=== PATIENT | male | born 1955 | race Caucasian/White ===

== ENCOUNTER 2023-12-29 05:22 | Emergency (ER) | payer OTHER, SELFPAY ==
[2023-12-29] VITALS (11 sets, daily range): BP systolic 107–141; BP diastolic 70–91; PULSE 58; O2SAT 93; BMI 29.3
[2023-12-29] MEDS: ZOFRAN 4 MG IV (05:59)
[2023-12-29 06:01] LABS: % Basophils 0.5 % (0-2); % Immature Granulocytes 0.4 % (0-0.5); % Lymphocytes 19.1 % (20.5-51.1); % Monocytes 6.8 % (1.7-9.3); % Neutrophils 67.2 % (42.2-75.2); Absolute Eosinophils 0.5 10^3/uL (0-0.7); Absolute Lymphocytes 1.5 10^3/uL (1.2-3.4); Absolute Monocytes 0.5 10^3/uL (0.1-0.6); Absolute Neutrophils 5.2 10^3/uL (1.4-6.5); Hematocrit 43.7 % (39.0-52.0); Hemoglobin 14.7 g/dL (13.0-18.0); Mean Corp Hgb Conc. 33.6 g/dL (33.0-37.0); Mean Corpuscular Hgb 30.7 pg (27.0-31.0); Mean Corpuscular Volume 91.2 fL (80.0-94.0); Nucleated Red Blood Cells % 0 % (-); Platelet Count 186 10^3/uL (130-400); Red Blood Cell Count 4.79 10^6/uL (4.70-6.10); Red Cell Dist. Width 12.8 % (11.5-14.5); White Blood Cell Count 7.7 10^3/uL (4.8-10.8)
[2023-12-29 06:19] LABS: ALT (SGPT) 22 U/L (0-50); AST (SGOT) 26 U/L (17-59); Albumin 4.1 g/dl (3.5-5.0); Alkaline Phosphatase 68 U/L (38-126); Blood Urea Nitrogen 18 mg/dl (9-20); Calcium 8.6 mg/dl (8.4-10.2); Carbon Dioxide 22 mmol/L (22-30); Chloride 109 mmol/L (98-107); Estimated Creatinine Clearance 86 ml/min; Glucose 167 mg/dl (70-99); Lipase 58 U/L (23-300); Potassium 4.3 mmol/L (3.5-5.1); Sodium 137 mmol/L (135-145); Total Bilirubin 0.7 mg/dl (0.2-1.3); Total Protein 6.8 g/dl (6.3-8.2); eGFR > 60.00
--- NOTE | 2023-12-29 06:30 | ED.GENMED ---
History of Present Illness
General
Chief Complaint: Dizziness
Source: patient, spouse and ambulance crew
Exam Limitations: none
Time Seen by Provider: 12/29/23 06:15
Nursing documentation reviewed up to this point in time: agreed with
Travel History
Have you had any contact with someone who has COVID-19?: No
Do you have any symptoms of coronavirus? Fever > 100 degrees, chills, cough, shortness of breath, sore throat, loss of taste or smell, muscle aches, or headache?: No
History of Present Illness
History of Present Illness:
68-year-old male presents to the emergency department due to waking up with dizziness at 3 AM. He states the room was spinning, and he was nauseous and vomiting. EMS gave him 4 mg of Zofran. He was unsteady when walking. He did not fall.
Phy Exam
Physical Exam
Physical Exam:
Physical Exam
General: no apparent distress, not acutely ill
Neck: supple. no meningeal signs. normal posterior pharynx
Heart: s1/s2 regular rate and rhythm, no murmur. equal radial
pulses.
HEENT: Pupils equal round reactive to light, EOMI
Lungs: no acute respiratory distress. clear bilaterally
Abdomen: normal bowel sounds. not tender. no CVAT
Neuro: alert and oriented. no focal neurological deficits cranial nerves II through XII intact
Skin: no rash
Psychiatric: well kept. interactive and cooperative
Extremities: no edema. no calf tenderness. negative homans. good distal pulses
Course
Orders/Labs/Results
Orders:
Orders
12/29/23 05:23
Electrocardiogram (*1) Urgent
Reason for Study: Chest Pain
Cardiac Monitoring- Treatment ONCE
EKG- Treatment ONCE
IV Insert/Care/Rem.- Treatment PRN
O2 Therapy [RESP] Urgent
Titrate/Wean O2 to maintain O2 sat greater than (%): 90
Special Instructions: Maintain sats >/=90%
Pulse Ox/spot Check [RESP] Urgent
Quantity: 1
Special Instructions: ON ROOM AIR
12/29/23 05:52
Complete Blood Count/With Diff Urgent
Comprehensive Metabolic Panel Urgent
Lipase Urgent
12/29/23 05:57
Ondansetron Injectable [Zofran] 4 mg .ROUTE .STK-MED ONE
12/29/23 05:59
Ondansetron Injectable [Zofran] 4 mg IV NOW STA
12/29/23 06:04
CT Head W/o Iv Contrast Urgent
Comment:
Reason For Exam: vertigo
12/29/23 08:21
Physical Therapy Consult [Pt Eval And Treat] Urgent
Treatment: vestibular evaluation
Activity Level: Ambulate
12/29/23 09:50
Meclizine [Antivert] 25 mg PO NOW STA
Abnormal Lab Results
12/29/23
05:52
Lymphocytes % 19.1 L %
(20.5-51.1)
Chloride 109 H mmol/L
(98-107)
Glucose 167 H mg/dl
(70-99)
12/29/23 05:52
12/29/23 05:52
Vital Signs
Initial and Last Documented VS:
Initial Vital Signs
Pulse Ox
97
12/29/23 05:34
Last Documented Vital Signs
Pulse Resp BP Pulse Ox
62 20 108/73 91
12/29/23 11:15 12/29/23 11:15 12/29/23 11:00 12/29/23 11:15
MDM/Problems Addressed
Differential Diagnosis Includes:
Cerebellar CVA, vertigo
MDM/Problems Addressed:
68-year-old male with peripheral vertigo, do not suspect CVA. Stable for discharge.
Chronic conditions affecting care: Cardiomyopathy
Acute Exacerbation and/or Progression of Chronic Illness: Cardiomyopathy
*Radiology
Radiology exam reviewed: radiology read reviewed (CT head no acute findings)
*Pulse Oximetry
Patient hypoxic: no
*EKG
Interpreted by ED Provider?: Yes
EKG Intrepretation Date: 12/29/23
EKG Intrepretation Time: 05:32
Interpretation: abnormal
Comparison EKG: no comparison EKG present
Heart Rate: 55
Rate: bradycardiac
Rhythm: sinus
Elmore: normal axis
Interval: normal interval
QRS Pattern: normal QRS
Ischemia: no ischemia
*Senior Firmware Engineer Interpretation
Rate: bradycardiac
Interpretation: normal
Heart Rate: 57
Rhythm: sinus
*Critical Care Note
Total Time (30-74mins, 75-104mins- exclusive of procedures): Not Applicable
Patient Management
Social determinants of health affecting care: Living situation
Discussion with other providers: Other (physical therapy)
Escalation/DeEscalation of care consider admission/obs:
admit not indicated
ED Attending Note
-
Portions of this chart may have been created with voice recognition software.� Occasional wrong word or��sound alike� substitutions may have occurred due to the inherent limitations of voice recognition software.
Discharge Plan
Departure
Patient Disposition: Home (Routine Discharge)
Date of Disposition: 12/29/23
Time of Disposition: 09:41
Patient with high blood pressure during this ER visit?: No
Condition: Good
Discharge Problem:
Vertigo
Instructions: Vertigo (a Type of Dizziness) (DC)
Prescriptions:
New
meclizine 25 mg tablet
25 mg PO BID PRN (Reason: dizziness) Qty: 7 0RF
Referrals:
Greg Valentino DO [Family Provider] - Call in 1-3 days for appt
Activity Restrictions/Additional Instructions:
Do not take meclizine (antivert) on the day of physical therapy
Interventions
Interventions:
*Risk Screen - Suicide Last Done: 12/29/23 05:24
*General Assessment Last Done: 12/29/23 05:24
*Neglect/Abuse Screening Last Done: 12/29/23 05:24
ED- Fall Risk Assessment Last Done: 12/29/23 05:38
*ED COVID-19 Vaccine History Last Done: 12/29/23 05:24
*Nursing Disposition Last Done: 12/29/23 11:54
ED- Neurological Assessment Last Done: 12/29/23 05:38
ED- Cardiac Assessment Last Done: 12/29/23 05:38
ED Swallowing Screen Last Done: 12/29/23 07:51
Discharge Date and Time
Discharge Date/Time: 12/29/23 12:01
[2023-12-29] MEDS: ANTIVERT 25 MG PO (09:59)
== END 2023-12-29 12:01 | disposition home or self-care (01) ==
LOC: EMR 05:22
PROVIDERS: Student in an Organized Health Care Education/Training Program; EMERGENCY PHYSICIAN Emergency Medicine; FAMILY PHYSICIAN Internal Medicine
DX: R42 Dizziness and giddiness (principal)
CPT/HCPCS: 99284; 96374; 70450; 80053; 83690; 85025; 93005

== ENCOUNTER → 2024-01-08 07:07 | Outpatient (REF) | payer OTHER, SELFPAY | LOC: MRI 3T 07:07 | PROVIDERS: ATTENDING PHYSICIAN Nurse Practitioner Family; FAMILY PHYSICIAN Internal Medicine | DX: R42 Dizziness and giddiness (principal); R26.81 Unsteadiness on feet | CPT/HCPCS: 70551 ==

== ENCOUNTER → 2024-01-10 07:37 | Outpatient (REF) | payer OTHER, SELFPAY | LOC: RCS 07:37 | PROVIDERS: ATTENDING PHYSICIAN Nurse Practitioner Family; FAMILY PHYSICIAN Internal Medicine | DX: I25.10 Atherosclerotic heart disease of native coronary artery without angina pectoris (principal); R42 Dizziness and giddiness; E78.2 Mixed hyperlipidemia; I10 Essential (primary) hypertension; I35.0 Nonrheumatic aortic (valve) stenosis | CPT/HCPCS: 93225; 93226 ==

== ENCOUNTER → 2024-03-15 07:47 | Outpatient (REF) | payer OTHER, SELFPAY | LOC: RAD 07:47 | PROVIDERS: ATTENDING PHYSICIAN Nurse Practitioner Family; FAMILY PHYSICIAN Internal Medicine | DX: I25.10 Atherosclerotic heart disease of native coronary artery without angina pectoris (principal); I10 Essential (primary) hypertension; R42 Dizziness and giddiness; R09.89 Other specified symptoms and signs involving the circulatory and respiratory systems; I35.0 Nonrheumatic aortic (valve) stenosis; E78.2 Mixed hyperlipidemia | CPT/HCPCS: 93880 ==

== ENCOUNTER → 2024-04-12 06:46 | Outpatient (REF) | payer OTHER, SELFPAY | LOC: PAVMRI 06:46 | PROVIDERS: ATTENDING PHYSICIAN Specialist; FAMILY PHYSICIAN Internal Medicine | DX: G45.9 Transient cerebral ischemic attack, unspecified (principal) | CPT/HCPCS: 70544; 70547 ==

== ENCOUNTER → 2024-09-21 14:19 | Outpatient (REF) | payer OTHER, SELFPAY | LOC: RAD 14:19 | PROVIDERS: ATTENDING PHYSICIAN Nurse Practitioner Family; FAMILY PHYSICIAN Internal Medicine | DX: I50.20 Unspecified systolic (congestive) heart failure (principal); I48.19 Other persistent atrial fibrillation; R09.89 Other specified symptoms and signs involving the circulatory and respiratory systems; I35.0 Nonrheumatic aortic (valve) stenosis; R06.02 Shortness of breath | CPT/HCPCS: 71046 ==

== ENCOUNTER 2024-10-12 06:43 | Day surgery (SDC) | payer OTHER, SELFPAY ==
[2024-10-12] VITALS (12 sets, daily range): BP systolic 91–132; BP diastolic 58–101; BMI 28.6
--- NOTE | 2024-10-12 09:47 | ITS.CL.PN ---
Addendum entered and electronically signed by Lester Smith MD 10/12/24 12:30:
Mean gradient assessed by simultaneous pressure recording ([place] catheter): 25.4 mmHg with calculated WICHO 0.59 (SVI 17.8 mL).
Original Note:
Marketing Technologist - Procedure Note
Procedure
Procedure Note:
CARDIAC CATHETERIZATION REPORT
Date of Procedure: 10/12/24
Referring: Dr. Greg Valentino, DO
Indication: coronary artery disease, severe aortic stenosis, HFrEF
PROCEDURE(S)
1. right heart catheterization
2. left heart catheterization
3. coronary angiography
ACCESS
1. 6F left radial artery (closure: radial band)
2. 5F right antecubital vein (closure: manual hemostasis)
CATHETERS
1. 5F [place]
2. 6F JR4
3. 6F JL4
4. 6F AL1
5. 6F [place] pigtail
HEMODYNAMIC DATA
LV 120/18 (EDP 26) mmHg
AO 102/75 (mean 88) mmHg
RA 18 mmHg
RV 60/8 (EDP 23) mmHg
PA 57/38 (mean 43) mmHg
PCWP 31 mmHg
SaO2 96.0%
SvO2 45.9%
Hb 13.5 g/dL
CO/CI 2.92/1.46 L/min/m2
SVR 1917 dsc*-5
PVR 4.1 Wood units
CORONARY ANGIOGRAPHY
Dominance: right
LM: large with mild disease
LAD: large vessel giving rise a moderate caliber D1, large branching D2, and multiple septal perforators. There is a focal 50% stenosis in the proximal aspect of D1. The D2 has eccentric, focal, moderate-severe stenoses proximal to the bifurcation
as well as in the proximal aspects of both limbs. The LAD proper has mild calcific disease proximally, a 50% stenosis just after D2, and a 40% stenosis in the mid-distal vessel.
LCx: Large vessel giving rise to three small-moderate caliber OM branches. There is a 90% stenosis in the proximal vessel. OM 2 is subtotaled proximally. OM3 provides collaterals to the distal RCA.
RCA: Severely diseased through the proximal to mid section with a total occlusion distally. The large RPDA and a large RPL branch are supplied by [id number] collaterals.
RADIATION: dose 576 mGy; DAP 43 Gy*cm2; fluoroscopy time 11.5 min
CONCLUSIONS
1. severely elevated biventricular filling pressures, severe pre and postcapillary pulmonary hypertension, and severely reduced cardiac output and index
2. severe three-vessel coronary artery disease in a right dominant system as described
3. severe low-flow low gradient aortic stenosis
RECOMMENDATIONS
1. expectant management after cardiac catheterization via right radial artery and right brachial vein approach
2. increase Lasix to 40 twice daily
3. close follow-up for titration of GDMT for HFrEF. Will need to closely follow renal function.
4. eventual consideration for rhythm control strategy for A-fib given HFrEF
5. aggressive secondary prevention of CAD with a goal LDL less than 55
6. will proceed with TAVR/SAVR evaluation, with plan for TAVR CT in [address] Surgery consult. Given the presence of multivessel coronary artery disease of high complexity and ICM, patient may stand to benefit most from surgical AVR
plus CABG with concomitant left atrial appendage occlusion and maze procedure.
Copy to: Dr. Greg Valentino DO (PCP)
Signed: Lester Smith MD, PhD
[2024-10-12] MEDS: LASIX 40 MG IV (10:10)
[2024-10-12 11:03] LABS: Blood Urea Nitrogen 26 mg/dl (9-20); Calcium 8.5 mg/dl (8.4-10.2); Carbon Dioxide 19 mmol/L (22-30); Chloride 102 mmol/L (98-107); Estimated Creatinine Clearance 66 ml/min; Glucose 91 mg/dl (70-99); Magnesium 2.2 mg/dl (1.6-2.3); Potassium 4.4 mmol/L (3.5-5.1); Sodium 132 mmol/L (135-145); eGFR > 60.00
--- NOTE | 2024-10-12 11:53 | CONSULT.STRU ---
Consultation
-
Date/Time Consultation Requested: 10/12/2024
Date/Time Consultation Performed: 10/12/2024
Requesting Provider: Lester Smith MD
Performing Provider: MULUGETA Nails
Reason for Consultation: CAD/Aortic Stenosis/Afib
Patient History
Physicians
Family Physician: Greg Valentino
Outpatient Distributor Publications: Lester Smith
Primary Distributor Publications: Lester Smith
History of Present Illness
Mr. Gillespie is a pleasant 69-year-old man with past medical history of coronary artery disease, paroxysmal atrial fibrillation status post 2 failed cardioversions, heart failure with reduced ejection fraction, severe aortic stenosis, hyperlipidemia,
hypertension, and cerebellar stroke. He presents today for cardiac catheterization. He previously followed at [facility] for his cardiovascular care but now would like to establish care at [place]. He was recently admitted to [facility] from
08/28-08/31/24 for multilobar pneumonia and decompensated heart failure. He had a second cardioversion during that admission which failed despite amiodarone. He continues to take amiodarone and eliquis. Recent echocardiogram demonstrated EF in the
30 to 40% range, with severe aortic stenosis. Plan is to repeat echo here today. Since discharge from the hospital he has gained weight (he had lost 20 pounds while hospitalized). He has had stable dyspnea on exertion, no chest pain, no orthopnea,
lower extremity edema, or lightheadedness. He is restricting his fluid intake to 48 ounces daily per instructions. He is taking furosemide 40 mg daily plus a second dose which was previously intended to be as needed but he is now taking standing.
Discussed with Mr. Gillespie the options for treatment of AVR/CABG/Maze and Clip vs TAVR/PCI. Explained the shared decision making approach that would be utilized in deciding his plan of care. Allowed for and answered questions.
Past Medical History
Past Medical History: Atrial Fib (on Eliquis, failed cardioversions), CAD, CVA/TIA, HTN, Hypercholesterolemia, Valvular Disease (Severe , moderate AI, Mild MR) and Other (glaucoma, arthritis, recent pneumonia (08/2024))
Past Surgical History
Past Surgical History: Orthopedic (R-TKR(11/01), L-TKR(07/01), bilateral arthroscopic knee surgery) and Other (Cataract surgery, cardioversions, thoracentesis)
Family History
Mother: at Age
Father: at Age
Social History
Alcohol: Occasional (2 drinks- 3x/week)
Drug: None
Tobacco: Smoker (cigars)
Personal:
Living: With Spouse
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
Allergies
Allergy/AdvReac Type Severity Reaction Status Date / Time
Penicillins Allergy Unknown Verified 10/12/24 07:10
Home Medications
�Medication �Instructions �Recorded �Confirmed �Type
amiodarone 200 mg tablet 200 mg PO DAILY 10/12/24 10/12/24 History
apixaban 5 mg tablet (Eliquis) 5 mg PO BID 10/12/24 10/12/24 History
aspirin 81 mg tablet,delayed 81 mg PO DAILY 10/12/24 10/12/24 History
release
atorvastatin 40 mg tablet 40 mg PO QPM 10/12/24 10/12/24 History
dorzolamide 2 % eye drops 1 drp ophthalmic (eye) BID 10/12/24 10/12/24 History
furosemide 40 mg tablet 40 mg PO BID #0 tabs 10/12/24 10/12/24 Rx
metoprolol succinate 25 mg 12.5 mg PO BID 10/12/24 10/12/24 History
tablet,extended release 24 hr
valsartan 40 mg tablet 40 mg PO BID 10/12/24 10/12/24 History
Review of Systems
-
History Source: Patient
General: Reports No Symptoms
HEENT: Reports No Symptoms
Respiratory: Reports LISA and Cough (since hospital ized with pneumonia in August)
Cardiac: Reports No Symptoms; Denies Chest Pain, Palpitations or Edema
Abdomen/GI: Reports No Symptoms; Denies Abdominal Pain, Reflux, Nausea, Vomiting or Diarrhea
: Reports No Symptoms; Denies Dysuria or Hematuria
Musculoskeletal: Reports No Symptoms
Skin: Reports No Symptoms
Neurological: Reports No Symptoms
Vascular: Reports No Symptoms; Denies Claudication
Physical Exam
Vital Signs
Temp 98.2 F 10/12/24 07:00
Temp route: Oral 10/12/24 07:00
Pulse 99 10/12/24 11:30
Resp Rate 31 10/12/24 11:30
Blood pressure 98/77 10/12/24 11:21
Blood pressure extremity used: Right upper arm 10/12/24 07:00
Position: Lying 10/12/24 07:00
MAP (cuff-Magdiel Monitor) 82 10/12/24 11:21
SaO2 96 10/12/24 11:30
Oxygen Mode of Delivery Room air 10/12/24 07:00
Can the patient verbally communicate their pain? Yes 10/12/24 11:35
Actual Weight 85.4 kg 10/12/24 07:03
Body Mass Index (BMI) 28.6 10/12/24 07:03
Labs
10/12/24 10:01
Diagnostic Studies
10/12/2024 Cardiac Cath:
Mean gradient assessed by simultaneous pressure recording ([place] catheter): 25.4 mmHg with calculated WICHO 0.59 (SVI 17.8 mL).
Addendum Dictated by: Lester Smith MD
Addendum Dictated Date & Time: 10/12/24 1230
Addendum Signed by: Lester Smith MD
Addendum Signed Date & Time: 10/12/24 1230
Damper Worker - Procedure Note
Procedure
Procedure Note:
CARDIAC CATHETERIZATION REPORT
Date of Procedure: 1/2/25
Referring: Dr. Greg Valentino, DO
Indication: coronary artery disease, severe aortic stenosis, HFrEF
PROCEDURE(S)
1. right heart catheterization
2. left heart catheterization
3. coronary angiography
ACCESS
1. 6F left radial artery (closure: radial band)
2. 5F right antecubital vein (closure: manual hemostasis)
CATHETERS
1. 5F [place]
2. 6F JR4
3. 6F JL4
4. 6F AL1
5. 6F [place] pigtail
HEMODYNAMIC DATA
LV 120/18 (EDP 26) mmHg
AO 102/75 (mean 88) mmHg
RA 18 mmHg
RV 60/8 (EDP 23) mmHg
PA 57/38 (mean 43) mmHg
PCWP 31 mmHg
SaO2 96.0%
SvO2 45.9%
Hb 13.5 g/dL
CO/CI 2.92/1.46 L/min/m2
SVR 1917 dsc*-5
PVR 4.1 Wood units
CORONARY ANGIOGRAPHY
Dominance: right
LM: large with mild disease
LAD: large vessel giving rise a moderate caliber D1, large branching D2, and multiple septal perforators. There is a focal 50% stenosis in the proximal aspect of D1. The D2 has eccentric, focal, moderate-severe stenoses proximal to the bifurcation
as well as in the proximal aspects of both limbs. The LAD proper has mild calcific disease proximally, a 50% stenosis just after D2, and a 40% stenosis in the mid-distal vessel.
LCx: Large vessel giving rise to three small-moderate caliber OM branches. There is a 90% stenosis in the proximal vessel. OM 2 is subtotaled proximally. OM3 provides collaterals to the distal RCA.
RCA: Severely diseased through the proximal to mid section with a total occlusion distally. The large RPDA and a large RPL branch are supplied by [id number] collaterals.
RADIATION: dose 576 mGy; DAP 43 Gy*cm2; fluoroscopy time 11.5 min
CONCLUSIONS
1. severely elevated biventricular filling pressures, severe pre and postcapillary pulmonary hypertension, and severely reduced cardiac output and index
2. severe three-vessel coronary artery disease in a right dominant system as described
3. severe low-flow low gradient aortic stenosis
RECOMMENDATIONS
1. expectant management after cardiac catheterization via right radial artery and right brachial vein approach
2. increase Lasix to 40 twice daily
3. close follow-up for titration of GDMT for HFrEF. Will need to closely follow renal function.
4. eventual consideration for rhythm control strategy for A-fib given HFrEF
5. aggressive secondary prevention of CAD with a goal LDL less than 55
6. will proceed with TAVR/SAVR evaluation, with plan for TAVR CT in [address] Surgery consult. Given the presence of multivessel coronary artery disease of high complexity and ICM, patient may stand to benefit most from surgical AVR
plus CABG with concomitant left atrial appendage occlusion and maze procedure.
Exam
General: Well Developed, Well Nourished, No Apparent Distress and Comfortable
HEENT: Normocephalic, Moist Mucous Membranes, PERRLA and EOMI
Neck: Trachea Midline
Respiratory: Crackles (left base); Negative Wheezes, Rhonchi or Accessory Muscle Use
Cardiac: S1/S2, Irregular Rhythm and Murmur (Grade II/ systolic murmur)
GI: Soft, Non Tender, Non Distended and Normal Bowel Sounds
Rectal: Deferred by Provider
Skin: Warm and Dry
Neuro: AO x 3, No Motor Deficits and Nonfocal/Grossly Intact
Extremities: Negative Lower Level Edema
Psych: Calm
Assessment / Plan
-
Procedure Type:�Isolated AVR
PERIOPERATIVE OUTCOME ESTIMATE %
Operative Mortality 1.06%
Morbidity & Mortality 12.8%
Stroke 1.41%
Renal Failure 1.38%
Reoperation 3.7%
Prolonged Ventilation 7.29%
Deep Sternal Wound Infection 0.112%
Long Hospital Stay (>14 days) 2.39%
Short Hospital Stay (<6 days)* 41.1%
Procedure Type:�CABG + AVR
PERIOPERATIVE OUTCOME ESTIMATE %
Operative Mortality 2.65%
Morbidity & Mortality 15%
Stroke 1.16%
Renal Failure 1.75%
Reoperation 5.42%
Prolonged Ventilation 14.2%
Deep Sternal Wound Infection 0.204%
Long Hospital Stay (>14 days) 7.8%
Short Hospital Stay (<6 days)* 26.5%
Assessment:
Severe aortic stenosis with reduced EF, multi vessel CAD and atrial fibrillation.
Plan:
Will proceed with TAVR/SAVR evaluation, with plan for TAVR CT in [address] Surgery consult with Dr. Coon. Given the presence of multivessel coronary artery disease of high complexity and ICM, patient may stand to benefit most from
surgical AVR plus CABG with concomitant left atrial appendage occlusion and maze procedure. Will complete TAVR CT scan and discussion with the Heart Team at the shared decision making meeting.
BMP: 10/19/2024 ([facility])
CT TAVR: 10/24/2024
CT surgery Consult with Dr. Coon: 10/30/2024
Will need dental clearance.
Data Reviewed
-
EKG: Report Reviewed by me
Damper Worker: Discussed with Physician
Echo: Report Reviewed by me and Discussed with Physician
Labs: Labs Reviewed by me and Discussed with Physician
Old Records: Reviewed (cardiology consult, echo report from [place])
Total Time Spent with Patient (in minutes): 25
--- NOTE | 2024-10-12 14:16 | PTCARENOTE ---
Echo complete. Patient ok for discharge
== END 2024-10-12 14:31 | disposition home or self-care (01) ==
LOC: CATH 06:43
PROVIDERS: Nurse Practitioner Adult Health; ATTENDING PHYSICIAN Student in an Organized Health Care Education/Training Program; FAMILY PHYSICIAN Internal Medicine
DX: I50.22 Chronic systolic (congestive) heart failure (principal); I25.10 Atherosclerotic heart disease of native coronary artery without angina pectoris; I35.0 Nonrheumatic aortic (valve) stenosis; I48.0 Paroxysmal atrial fibrillation; I11.0 Hypertensive heart disease with heart failure; Z86.73 Personal history of transient ischemic attack (TIA), and cerebral infarction without residual deficits; Z79.01 Long term (current) use of anticoagulants; Z87.01 Personal history of pneumonia (recurrent); F17.290 Nicotine dependence, other tobacco product, uncomplicated; Z79.82 Long term (current) use of aspirin; Z79.899 Other long term (current) drug therapy; E78.00 Pure hypercholesterolemia, unspecified; I27.29 Other secondary pulmonary hypertension; Z88.0 Allergy status to penicillin; Z95.1 Presence of aortocoronary bypass graft
CPT/HCPCS: 80048; 83735; 93306; 93460; C1769; C1894; Q9967

== ENCOUNTER → 2024-10-24 09:05 | Outpatient (REF) | payer OTHER, SELFPAY | LOC: RAD 09:05 | PROVIDERS: ATTENDING PHYSICIAN Nurse Practitioner Adult Health; FAMILY PHYSICIAN Internal Medicine | DX: I35.0 Nonrheumatic aortic (valve) stenosis (principal) | CPT/HCPCS: 74174; 75572; Q9967 ==

== ENCOUNTER → 2024-11-15 10:25 | Outpatient (REF) | payer OTHER, SELFPAY ==
[2024-11-15 10:45] VITALS: BP 92/58; BP_SYST 72
[2024-11-15 11:05] VITALS: BP 83/68; BP_SYST 98
--- NOTE | 2024-11-15 11:56 | PTCARENOTE ---
Addendum entered by Karon Palmer RN 11/15/24 12:44:
patient seen by Beatriz Dean. ok to discharge patient per Beatriz. discharged home.
Original Note:
IRAD note: Patient Osorio Gillespie came for Thoracentesis. we removed 1000ml from right side. He is schedule for TAVR next . Before Thoracentesis his BP was 92/58. Post Thora BP 80-82/70's. patient is Asymptomatic. He took Metoprolol 12.5mg
today AM and not sure about valsartan 40mg. rechecked BP multiple times on both arms. Cardiac RUG HOOKER Tamika Drake notified. Waiting for Beatriz Dean to see patient before discharge.
[2024-11-15 12:42] VITALS: BP 88/72
== END ==
LOC: RADI 10:25
PROVIDERS: ATTENDING PHYSICIAN Nurse Practitioner Acute Care
DX: J90 Pleural effusion, not elsewhere classified (principal)
CPT/HCPCS: 32555; 71045

== ENCOUNTER → 2024-11-16 09:49 | Outpatient (REF) | payer OTHER, SELFPAY ==
[2024-11-16 10:22] LABS: INR 1.94; PT 22.7 Sec (11.4-14.6)
[2024-11-16 10:23] LABS: APTT 43.1 Sec (23.4-35.0)
[2024-11-16 10:28] LABS: ALT (SGPT) 132 U/L (0-50); AST (SGOT) 100 U/L (17-59); Albumin 3.2 g/dl (3.5-5.0); Alkaline Phosphatase 199 U/L (38-126); Blood Urea Nitrogen 46 mg/dl (9-20); Calcium 8.4 mg/dl (8.4-10.2); Carbon Dioxide 24 mmol/L (22-30); Chloride 98 mmol/L (98-107); Direct Bilirubin 0.4 mg/dl (0.0-0.4); Glucose 110 mg/dl (70-99); Potassium 4.6 mmol/L (3.5-5.1); Sodium 130 mmol/L (135-145); Total Bilirubin 1.6 mg/dl (0.2-1.3); Total Protein 6.3 g/dl (6.3-8.2); eGFR 42.57
== END ==
LOC: REG 09:49
PROVIDERS: ATTENDING PHYSICIAN Nurse Practitioner Adult Health
DX: I35.0 Nonrheumatic aortic (valve) stenosis (principal); I50.43 Acute on chronic combined systolic (congestive) and diastolic (congestive) heart failure
CPT/HCPCS: 36415; 80053; 82248; 85610; 85730

== ENCOUNTER 2024-11-23 07:43 | Inpatient (IN) | payer OTHER, SELFPAY ==
[2024-11-15 08:03] VITALS: BMI 27.7
[2024-11-15 09:04] LABS: % Basophils 0.5 % (0-2); % Eosinophils 1.5 % (0-6); % Immature Granulocytes 0.3 % (0-0.5); % Lymphocytes 17.9 % (20.5-51.1); % Neutrophils 67.8 % (42.2-75.2); Absolute Eosinophils 0.1 10^3/uL (0-0.7); Absolute Monocytes 0.7 10^3/uL (0.1-0.6); Absolute Neutrophils 3.9 10^3/uL (1.4-6.5); Hematocrit 45.7 % (39.0-52.0); Hemoglobin 14.8 g/dL (13.0-18.0); Mean Corp Hgb Conc. 32.4 g/dL (33.0-37.0); Mean Corpuscular Hgb 27.6 pg (27.0-31.0); Mean Corpuscular Volume 85.1 fL (80.0-94.0); Mean Platelet Volume 10.5 fL (7.4-10.4); Nucleated Red Blood Cells % 0 % (-); Platelet Count 182 10^3/uL (130-400); Red Blood Cell Count 5.37 10^6/uL (4.70-6.10); Red Cell Dist. Width 16.3 % (11.5-14.5); White Blood Cell Count 5.8 10^3/uL (4.8-10.8)
[2024-11-15 09:07] LABS: Urine Albumin 2+ (Neg - Trace); Urine Bilirubin Negative (Negative); Urine Character Clear (Clear); Urine Color Yellow; Urine Glucose 4+ (Negative); Urine Ketone Negative (Negative); Urine Leukocyte Negative (Negative); Urine Nitrite Negative (Negative); Urine Occult Blood Negative (Negative); Urine Specific Gravity 1.025 (<1.030); Urine Urobilinogen 1+ (Neg - 1+)
[2024-11-15 09:15] LABS: INR 2.71; PT 29.1 Sec (11.4-14.6)
[2024-11-15 09:16] LABS: APTT 43.7 Sec (23.4-35.0)
[2024-11-15 09:24] LABS: Urine Mucus Moderate; Urine Squamous Cell 0-2 /LPF (Few)
[2024-11-15 09:25] LABS: Urine Bacteria Few (Negative); Urine Red Blood Cell 0-2 /HPF (0-2); Urine White Cell 0-2 /HPF (0-5)
[2024-11-15 09:27] LABS: NT-proBNP 24900 pg/ml
[2024-11-15 09:29] LABS: ALT (SGPT) 129 U/L (0-50); AST (SGOT) 111 U/L (17-59); Albumin 4.1 g/dl (3.5-5.0); Alkaline Phosphatase 200 U/L (38-126); Blood Urea Nitrogen 42 mg/dl (9-20); Calcium 8.6 mg/dl (8.4-10.2); Carbon Dioxide 21 mmol/L (22-30); Chloride 96 mmol/L (98-107); Direct Bilirubin 0.7 mg/dl (0.0-0.4); Estimated Creatinine Clearance 36 ml/min; Glucose 97 mg/dl (70-99); Potassium 5.4 mmol/L (3.5-5.1); Sodium 133 mmol/L (135-145); Total Bilirubin 1.7 mg/dl (0.2-1.3); Total Protein 7.4 g/dl (6.3-8.2); eGFR 39.75
[2024-11-15 09:40] LABS: Glycohemoglobin (HgbA1c) 6.1 % (4.0-5.6)
--- NOTE | 2024-11-15 10:10 | CM ---
CM following for DC planning needs.
Met w/ patient, spouse Hafsa during PATs for planned TAVR, 11/23.
Pt. resides w/ spouse in a private, 2 story home w/ 1 LAZARUS. Functionally, patient is indep. with ADLs, mobility without the use of any assisted device. Pt. has some DME from prior knee surgeries but does not use.
Pt. has RX plan and uses [facility] on [address] for prescription needs.
Reviewed pre and post op routines.
Soap, shower instruction and TAVR booklet provided and reviewed.
Discussed post op restrictions to include lifting, driving restrictions.
Discussed post op MD appointments, Cardiac Rehab and visit from CT Transitional Care RN.
Plan for TAVR, 11/23.
Anticipated DC plan is for home with CT Transitional Care RN.
CM to follow.
[2024-11-23] VITALS (26 sets, daily range): BP systolic 72–167; BP diastolic 57–146; BMI 28.3; BMI 27.5
[2024-11-23 07:51] LABS: Glucose - Point of Care 76 mg/dl (70-99)
--- NOTE | 2024-11-23 08:04 | CON.NEURO ---
Neuro Assessment/Plan
Assessment
EEG gen slow, consistent with mild generalized cerebral dysfunction
Head CT imgs rev'd, no bleed
Seen during stroke alert though history is more consistent with seizure.
patient back to baseline so he was not a TNK candidate
possibly a provoked seizure
with a normal EEG his risk for further seizures ~20%
Plan
no rx
check brain MRI r/o brain tumor - can wait until after ECHO, RHC, swan, TAVR, etc
Consultation
Order
Date of Consultation: 11/23/24
Requesting Provider: Jorje Coon
Reason for Consult: Stroke alert
Subjective/Objective
Subjective Data
Date of Service: November 23, 2024
He is a 69 year old man admitted for TAVR. while prepping for the procedure, the patient appeared to be grunting, heavy breathing, head turned unnaturally to the left, left gaze deviation, arms wrists and toes flexed. lasted 45 seconds. came out of
it quickly and the patient was immediately oriented, knew that he was here for a TAVR
Objective Data
PT 29.1 Sec (11.4-14.6) H 11/15/24 08:37
INR 2.71 11/15/24 08:37
APTT 43.7 Sec (23.4-35.0) H 11/15/24 08:37
Sodium 133 mmol/L (135-145) L 11/15/24 08:37
Potassium 5.4 mmol/L (3.5-5.1) H 11/15/24 08:37
BUN 42 mg/dl (9-20) H 11/15/24 08:37
Glucose 97 mg/dl (70-99) 11/15/24 08:37
Calcium 8.6 mg/dl (8.4-10.2) 11/15/24 08:37
Twk-F-Vqszgucoiwv Pept 13906 pg/ml 11/15/24 08:37
Patient Allergies
Penicillins Allergy (Verified 11/15/24 11:08)
Unknown- TOLD YOUNG CHILD
Physical Exam
-
AAOx3, speech clear, language intact
VFF, EOMI, face symmetric
full strength b/l UE/LE
sensation intact to touch
Medications
-
Home Medications
�Medication �Instructions �Recorded
amiodarone 200 mg tablet 200 mg PO DAILY 10/12/24
apixaban 5 mg tablet (Eliquis) 5 mg PO BID 10/12/24
aspirin 81 mg tablet,delayed 81 mg PO DAILY 10/12/24
release
atorvastatin 40 mg tablet 40 mg PO QPM 10/12/24
furosemide 40 mg tablet 40 mg PO BID #0 tabs 10/12/24
metoprolol succinate 25 mg 12.5 mg PO BID 10/12/24
tablet,extended release 24 hr
valsartan 40 mg tablet 40 mg PO DAILY 10/12/24
dapagliflozin propanediol 10 mg 10 mg PO DAILY 11/13/24
tablet (Farxiga)
potassium chloride 20 mEq oral 20 meq PO DAILY 11/13/24
packet
dorzolamide 22.3 mg-timolol 6.8 1 drp BOTH EYES BID 11/14/24
mg/mL eye drops
[2024-11-23 08:05] LABS: Hematocrit 46.1 % (39.0-52.0); Hemoglobin 14.8 g/dL (13.0-18.0); Mean Corp Hgb Conc. 32.1 g/dL (33.0-37.0); Mean Corpuscular Hgb 26.6 pg (27.0-31.0); Mean Corpuscular Volume 82.9 fL (80.0-94.0); Mean Platelet Volume 10.2 fL (7.4-10.4); Platelet Count 183 10^3/uL (130-400); Red Blood Cell Count 5.56 10^6/uL (4.70-6.10); Red Cell Dist. Width 16.9 % (11.5-14.5); White Blood Cell Count 6.3 10^3/uL (4.8-10.8)
[2024-11-23 08:14] LABS: APTT 36.5 Sec (23.4-35.0); INR 1.83; PT 21.7 Sec (11.4-14.6)
[2024-11-23 08:16] LABS: Blood Urea Nitrogen 58 mg/dl (9-20); Calcium 8.4 mg/dl (8.4-10.2); Carbon Dioxide 18 mmol/L (22-30); Chloride 96 mmol/L (98-107); Estimated Creatinine Clearance 33 ml/min; Glucose 65 mg/dl (70-99); Potassium 5.2 mmol/L (3.5-5.1); Sodium 127 mmol/L (135-145); eGFR 35.02
[2024-11-23 08:35] LABS: B.E. -9.4 mmol/L; O2 Saturation % 99.9 % (94-98); PCO2 21 mmHg (35-48); PO2 284 mmHg (83-108)
[2024-11-23 08:40] LABS: ALT (SGPT) 344 U/L (0-50); AST (SGOT) 366 U/L (17-59); Albumin 3.4 g/dl (3.5-5.0); Alkaline Phosphatase 287 U/L (38-126); Total Bilirubin 2.3 mg/dl (0.2-1.3); Total Protein 6.4 g/dl (6.3-8.2)
[2024-11-23 08:41] LABS: Glucose - Point of Care 105 mg/dl (70-99)
--- NOTE | 2024-11-23 09:14 | RR ---
Pt arrived at 0725 to labeler recovery area, AA0x3. Pt ambulated from wheelchair to stretcher and changed into gown. While RN wiping patient with HCG wipes pt breathing heavy and grunting, unresponsive looking over to left side with arms with
decorticate posturing. Stroke alert and rapid response called.
A Rapid Response was called on this patient, please see Rapid Response form.
[2024-11-23] MEDS: HEPARIN 4000 UNITS IV (09:30)
[2024-11-23] MEDS: HEPARIN 25000 UNITS/250 ML IV (09:35)
[2024-11-23] MEDS: DOBUTREX 500 MG 250 IV (09:40)
[2024-11-23] MEDS: DEXTROSE 50% SYRINGE 12.5 GRAMS IV (09:40)
--- NOTE | 2024-11-23 10:17 | PTCARENOTE ---
Received pt from microbiological lab technician area post rapid response; pt AAOx3 and resting comfortably in bed; A-fib on monitor and VSS; PIV x2 patent; Heparin bolus/drip and Dobutamine started per MD order see flow sheet for details; Lungs diminished; hypoactive
bowel sounds; pt voiding yellow urine; lower extremities +2 edema and cool/red skin; lower extremity pulses present by Doppler; EEG at bedside and ECHO at bedside; family updated on plan of care; awaiting microbiological lab technician for possible [place] catheter
placement; see nursing documentation for further details.
[2024-11-23 10:18] LABS: Lactic Acid 2.2 mmol/L (0.7-2.0)
--- NOTE | 2024-11-23 10:31 | CM ---
CM following for DC planning needs. Pt. was for TAVR today. While being prepped, stroke alert was called.
Met w/ patient and spouse at bedside. Pt. was receiving ECHO. Support provided.
Pt. resides w/ spouse in a private, 2 story home w/ 1 LAZARUS. Functionally, at baseline, patient is indep. w/ ADLs, mobility without the use of any assisted device.
CM to follow for DC planning needs.
--- NOTE | 2024-11-23 10:46 | EEG.RPT ---
Electroencephalogram Report
Recording
Date of EE11/23/24
Type of EEG: Routine
Length of EEG recordin mins
Done with Video Recording: Yes
Patient Status: Inpatient
Recording Conditions: Awake and Drowsy
Hyperventilation Performed: No
Photic Stimulation Performed: Yes
Report
History: 69 year old man admitted for TAVR, was getting prepped, had seizure ~45 seconds Left head turn, left gaze, limbs flexed
Background: continuous generalized polymorphic theta, 6-7 Hz, symmetric and reactive
Sleep: none
Focal/rhythmic/epileptiform: none
Seizures: none
Photic stim: no background change
Impression: continuous generalized slowing
Clinical correlation: mild generalized cerebral dysfunction
--- NOTE | 2024-11-23 10:52 | HPS.HSE ---
Family Physician
-
Family Physician: Greg Valentino
Chief Complaint
-
Unresponsive, suspected seizure
History of Present Illness
69 y/o male with past medical history severe aortic stenosis, atrial fibrillation, coronary artery disease, heart failure with reduced ejection fraction, glaucoma, cerebellar stroke, hypertension, hyperlipidemia, history of pneumonia and
osteoarthritis presented for a TAVR but pre-op he was noted to be unresponsive with a left gaze and urinary incontinence. CT Head was negative and neurology was consulted. With his low blood pressures with suspected cardiogenic shock, cardiology
started him on vasopressors and pre-op Heparin Drip (in lieu of home Eliquis). Cardiothoracic surgery has now postponed TAVR and asked for patient to be admitted to hospitalist service.
Medical History
Past Medical History
Past Medical History: Reports Other (As per HPI above)
Past Surgical History: Reports Cardiac (Cardiac Cath. Cardioversions.) and Orthopedic (Bilateral total knee replacement)
Additional Past Surgical History:
Bilateral eye cataract surgery
Social History
Tobacco: Smoker
Alcohol: Occasional
Drug: None
Family History
Family History: Not pertinent
Allergies / Home Medications
Allergies reflects when Allergies were last updated in [employer].
Home Medications with original date entered in [employer]
Allergy/Medication List:
Allergies
Allergy/AdvReac Type Severity Reaction Status Date / Time
Penicillins Allergy Unknown- Verified 11/15/24 11:08
TOLD
YOUNG CHILD
Home Medications
amiodarone 200 mg tablet 200 mg PO DAILY 10/12/24
apixaban 5 mg tablet (Eliquis) 5 mg PO BID 10/12/24
aspirin 81 mg tablet,delayed release 81 mg PO DAILY 10/12/24
atorvastatin 40 mg tablet 40 mg PO QPM 10/12/24
furosemide 40 mg tablet 40 mg PO BID #0 tabs 10/12/24
metoprolol succinate 25 mg tablet,extended release 24 hr 12.5 mg PO BID 10/12/24
valsartan 40 mg tablet 40 mg PO DAILY 10/12/24
dapagliflozin propanediol 10 mg tablet (Willemga) 10 mg PO DAILY 11/13/24
potassium chloride 20 mEq oral packet 20 meq PO DAILY 11/13/24
dorzolamide 22.3 mg-timolol 6.8 mg/mL eye drops 1 drp BOTH EYES BID 11/14/24
Review of Systems
-
A 12 point ROS was completed and negative except as noted: Yes
Physical Exam
Vital Signs
Vital Signs
Pulse Resp BP Pulse Ox
97 11 79/69 97
11/23/24 09:45 11/23/24 09:45 11/23/24 09:33 11/23/24 10:26
Physical Exam
General: No Apparent Distress, Comfortable and Conversant
HEENT: Moist mucous membranes
Respiratory: Clear
Cardiac: S1/S2 and Regular Rhythm
GI: Soft, Non Tender and Normal Bowel Sounds
Musculoskeletal: No Cyanosis
Skin: Warm and Dry
Neuro: Awake, Alert, AO x 3, No Motor Deficits, Nonfocal/grossly intact and Cranial Nerves Intact
Psych: Calm and Intact Judgment/Insight
Laboratory Results
-
11/23/24 07:51
11/23/24 07:50
Laboratory Results
PT 21.7 Sec (11.4-14.6) H 11/23/24 07:50
INR 1.83 11/23/24 07:50
APTT 36.5 Sec (23.4-35.0) H 11/23/24 07:50
pH 7.40 (7.35-7.45) 11/23/24 08:25
pCO2 21 mmHg (35-48) L 11/23/24 08:25
pO2 284 mmHg (83-108) H 11/23/24 08:25
HCO3 13.0 mmol/L (21-28) L* 11/23/24 08:25
Lactic Acid 2.2 mmol/L (0.7-2.0) H 11/23/24 09:43
Total Bilirubin 2.3 mg/dl (0.2-1.3) H 11/23/24 07:50
AST 366 U/L (17-59) H 11/23/24 07:50
ALT 344 U/L (0-50) H 11/23/24 07:50
Alkaline Phosphatase 287 U/L (38-126) H 11/23/24 07:50
Impression/Plan
-
Assessment/Plan
Suspected Seizure
-EEG gen slow, consistent with mild generalized cerebral dysfunction
-CT Head with no bleeding
-Neurology onboard
-Seizure precautions
-Check brain MRI to rule out brain tumor - per neurology, can wait until after ECHO, RHC, swan, TAVR, etc
Cardiogenic Shock
-Pressors started
-Cardiology and hunting guide onboard
-Continue to monitor in CVICU
-Discussed with cardiology (Dr. Lester Smith) who recommended holding Amiodarone, Farxiga, Furosemide, Toprol XL, Potassium, Valsartan right now
Severe Aortic Stenosis
-TAVR has been postponed by cardiothoracic surgery due to above suspected seizure
Atrial Fibrillation
-Continue Heparin Drip
Coronary artery disease
-Continue Aspirin
-Hold statin due to elevated AST and ALT
Heart failure with reduced ejection fraction
-Daily weights and I's and O's
-Meds including Lasix being held as above
Hyponatremia
Mild Hyperkalemia
-Appears chronic
-PO fluid restriction
-Monitor BMP
Glaucoma
-Continue home eye drops
History of cerebellar stroke
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
-Holding antihypertensives given low blood pressure/shock
Hyperlipidemia
-Holding statin as above
History of pneumonia
Osteoarthritis
DVT Prophylaxis: Heparin Drip
Code Status: Full Code
Shock needing vasopressors is a high risk encounter.
[2024-11-23] MEDS: LEVOPHED 250 IV ×2 (12:10→19:18)
--- NOTE | 2024-11-23 12:12 | PTCARENOTE ---
Left A-line placed by CVPA; Levo started for SBP 70s; A-fib on the monitor; family at bedside; awaiting laboratory monitor.
--- NOTE | 2024-11-23 12:15 | W.PN.UPDATE ---
Update Note
Progress Note Update
CT Surgery Procedure Note:
Procedure date: 11/23/24
Preprocedure diagnosis:
Atrial fibrillation (on Eliquis, failed cardioversions)
Coronary artery disease with
History of cerebral venous accident/transient ischemic attack
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
Hypercholesterolemia
Valvular Disease (Severe aortic stenosis, moderate aortic insufficiency, Mild mitral regurgitation)
Glaucoma
Arthritis
Recent pneumonia (08/2024)
Cardiogenic shock necessitating dobutamine and norepinephrine drip
Episode of unresponsiveness with left gaze and incontinence-Cat Scan of head negative
Postprocedure diagnosis:
Same as the above
Procedure:
Left radial arterial line insertion for hemodynamic monitoring on dobutamine and norepinephrine
Attending physician: Dr. Jorje Coon MD.
Manager Alliance: Ade Medel PA-C
Indication for procedure:
Patient was admitted electively this morning to undergo transcatheter aortic valve replacement. Prior to procedure patient was being prepped and according to his bedside nurse he had an episode of unresponsiveness with leftward gaze and
incontinence. Episode lasted 20 to 40 seconds and the patient recovered. CT scan of the head was negative. The patient was recovered in the cardiovascular intensive care unit where he was placed on dobutamine and norepinephrine drip. Given the
above left radial arterial line was requested for hemodynamic monitoring.
Description of procedure:
Informed consent was obtained with the patient at the bedside. Patient was prepped and draped in sterile fashion. Proper timeout was performed. Using ultrasound guidance the patient's left radial arterial line was visualized. Next using a
25-gauge needle small wheal was made under the patient's subcutaneous skin with local lidocaine. Radial artery catheter was inserted into the patient's left radial artery. Bright red arterial blood was visualized. Needle guidewire was advanced
forward. Catheter was advanced over needle needle guidewire. Needle and needle guidewire were then removed. Catheter was hooked up to proper transducing tubing. It was sutured in place using a 2-0 silk suture. Site was then cleaned. Proper
Tegaderm dressing was applied. All sharps were disposed of in the proper container.
Anesthesia: 10 cc local lidocaine
Complications: none
Estimated blood loss: 2 milliliters
CPT Code/Billin
[2024-11-23] MEDS: XYLOCAINE 2% MDV 20 ML INJ (12:22)
--- NOTE | 2024-11-23 12:40 | PTCARENOTE ---
Pt sent to chemical laboratory chief with team; bedside report given to chemical laboratory chief RN.
--- NOTE | 2024-11-23 13:12 | W.PN.UPDATE ---
Update Note
Progress Note Update
Patient seen and examined this morning in pre-TAVR holding area. While getting prep for TAVR the patient was noted to have an episode of altered mental status with unresponsiveness, asymmetric gaze, and clenched upper extremities. He was not on
telemetry at the time. He was incontinent after the episode but regained normal mental status quickly and was not post-ictal per report. He denied having had any recent symptoms of confusion, lightheadedness, vision changes, syncope, although he
did note that in the week leading up to today he has been more short of breath.
On my evaluation he was alert and oriented x 3 with grossly unremarkable strength exam and cranial nerve exam. He had weak peripheral pulses and dusky lower extremities in Afib with RVR ~100. He was taken emergently for head CT which showed no
acute intracranial abnormality and no bleed. While in head CT he had peripheral oximetry which demonstrated hypoxia although he had no respiratory symptoms. Eventual ABG demonstrated normal oxygenation suggesting that the Plath was inaccurate.
Stat labs demonstrated worsening kidney and liver function and mildly elevated lactate all concerning for progressive cardiogenic shock.
Plan was made to admit the patient for treatment of cardiogenic shock and hold off on TAVR. Plan for now to initiate dobutamine for presumed cardiogenic shock, trend end organ function and lactate, obtain right heart cath and TTE. Neurology
consulted and favors seizure more likely than stroke. This may also have been cardiogenic syncope. Will obtain MRI once acute issues are resolved. Will start heparin for anticoagulation while holding Eliquis. Regarding timing of TAVR, if above
evaluation confirms progressive cardiogenic shock in setting of severe , would favor urgent valve replacement.
Critical care time: 45 minutes
--- NOTE | 2024-11-23 13:42 | ITS.CL.CATH ---
[employer] - Catheterization
Cardiac Catheterization
Procedure Report:
RIGHT HEART CATHETERIZATION
Date of Procedure: 11/23/2024
Referring: Jorje Coon M.D.
INDICATION: Pre-TAVR, cardiogenic shock.
ACCESS:
8 Latvian right internal jugular vein using a modified Seldinger technique with a micropuncture kit under ultrasound guidance. Ultrasound image obtained.
CATHETERS:
7.5 Latvian Astoria-Ysabel catheter..
PROCEDURE:
The patient was brought to the cardiac [employer] on a dobutamine infusion. The patient was prepped and draped in standard sterile fashion. The area for internal jugular access was anesthetized with 1% lidocaine. The right internal jugular vein was
identified under ultrasound guidance. The vein was punctured using a micropuncture needle. A micropuncture wire was advanced into the right atrium, confirmed on fluoroscopy. The needle was exchanged for a micropuncture sheath. The inner dilator
and micropuncture wire were withdrawn and a standard J-wire was advanced through the outer micropuncture sheath. The outer micropuncture sheath was removed and A 8 Latvian sheath was inserted into the internal jugular vein. A 7.5 Latvian Astoria-Ysabel
catheter was advanced through the sheath into the superior vena cava. An SVC oxygen saturation was drawn. The balloon wedge catheter was advanced into the pulmonary artery and a pulmonary artery oxygen saturation was drawn. Arterial oxygen
saturation was drawn from the arterial line. Cardiac output was calculated using the Sujey equation and thermodilution. The PA, wedge, RV and RA pressures were measured. The Astoria-Ysabel catheter was locked in place using the sterile cover. The 8
Latvian sheath was sutured in place.
Weight (kg): 81.6
PA (s/d/x mmHg): 74/43/53
PCWP (a/v/x mmHg): 40/40/35
RV (s/x mmHg): 74/21
RA (a/v/x mmHg): 23/22/21
SVC SvO2 (%): 62.1
IVC SvO2 (%): Not obtained.
RA SvO2 (%): Not obtained
RV SvO2 (%): Not obtained
PA SvO2 (%): 56.1
SaO2 (%): 95.9
Hbg (g/dL): 13.7
Sujey
CO (liters/minute): 3.82
CI (liters/minute/m2): 1.95
Thermodilution
CO (liters/minute): 3.40
CI (liters/minute/m2): 1.74
TPG (mmHg): 19
PVR (Holguin Units): 5.6
AVO2 Difference (Volume %): 7.42
Radiation (mGy): 10.24
DAP (cm2.Gy): 1.5512
Fluoroscopy time (minutes): 1.0
CONCLUSION:
1. Severely elevated filling pressures (PCWP = 35 mmHg at 81.6 kg).
2. Severely depressed cardiac function on dobutamine (cardiac index 1.95 L/min/m� by Sujey, 1.74 L/min/m� by thermodilution), consistent with cardiogenic shock.
3. 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
RECOMMENDATIONS:
1. Expectant management after right heart catheterization via right internal jugular approach.
2. Titrate dobutamine to a cardiac index of >1.8 L/min/m�.
3. Start bumetanide drip at 1 mg/h.
4. Expedited TAVR.
Copy to: Greg Valentino D.O., Lester Smith M.D., PhD
Khoa Whitman D.O., FACC, FACP
[2024-11-23] MEDS: BUMEX 50 IV (14:10)
--- NOTE | 2024-11-23 14:21 | CON.INTV ---
Consultation
Consultation Request
Date/Time Consultation Requested: 11/23/2024-3 PM
Date/Time Consultation Performed: 11/23/2024-3:15 PM
Requesting Provider: Hospitalist
Performing Provider: Dr. Og
Reason for Consultation: Syncope/critical care management
Medical History
-
Chief Complaint: Episode of unresponsive
History of Present Illness:
69-year-old occasional cigar smoking gentleman with a history of atrial fibrillation, cardioversions, CAD, heart failure with reduced EF, glaucoma, cerebellar stroke, hypertension, hyperlipidemia, and severe aortic stenosis came in for TAVR are
procedure and when he bent over to untie his shoes he had an episode of unresponsiveness with left gaze and urinary incontinence resulting in stroke alert-subsequently went to right heart catheterization and hvac instructor consulted for critical care
management 11/23/2024. Patient is seen after right heart catheterization lying flat on room air and offers no complaints of shortness of breath, chest pain, pleurisy, adductive cough, abdominal pain, nausea, weakness and does admit to chronic lower
extremity edema.
Past Medical History
Past Medical History: None (Hypertension. Hyperlipidemia. Cerebellar stroke. Glaucoma. CAD. CHF reduced EF. Atrial fibrillation. Cardioversions. Severe aortic stenosis. Cataract. Bilateral total knee replacement.)
Social History
Tobacco: Smoker (Occasional cigar)
Alcohol: Occasional
Drug: None
Living: With Family
Occupational Exposures: No known asbestos exposure
Environmental Exposures: No known tuberculosis exposure
Family History
Family History: Reviewed & Not Pertinent
Allergies / Home Medications
Allergies
Allergy/AdvReac Type Severity Reaction Status Date / Time
Penicillins Allergy Unknown- Verified 11/15/24 11:08
TOLD
YOUNG CHILD
Home Medications
�Medication �Instructions �Recorded �Confirmed �Last Taken �Type
amiodarone 200 mg tablet 200 mg PO DAILY 10/12/24 11/23/24 10/11/24 20:00 History
apixaban 5 mg tablet (Eliquis) 5 mg PO BID 10/12/24 11/23/24 11/20/24 20:00 History
aspirin 81 mg tablet,delayed 81 mg PO DAILY 10/12/24 11/23/24 11/23/24 06:00 History
release
atorvastatin 40 mg tablet 40 mg PO QPM 10/12/24 11/23/24 11/22/24 18:00 History
furosemide 40 mg tablet 40 mg PO BID #0 tabs 10/12/24 11/23/24 11/22/24 16:00 Rx
metoprolol succinate 25 mg 12.5 mg PO BID 10/12/24 11/23/24 11/22/24 20:00 History
tablet,extended release 24 hr
valsartan 40 mg tablet 40 mg PO DAILY 10/12/24 11/23/24 11/22/24 08:00 History
dapagliflozin propanediol 10 mg 10 mg PO DAILY 11/13/24 11/23/24 11/19/24 08:00 History
tablet (Farxiga)
potassium chloride 20 mEq oral 20 meq PO DAILY 11/13/24 11/23/24 11/21/24 08:00 History
packet
dorzolamide 22.3 mg-timolol 6.8 1 drp BOTH EYES BID 11/14/24 11/23/24 11/22/24 08:00 History
mg/mL eye drops
Review of Systems
-
Unable to Obtain full review of systems at this time due to: Other (Per HPI)
Vitals / Labs / Diagnostic Testing
Vital Signs
Pulse Resp BP Pulse Ox
97 11 79/69 97
11/23/24 09:45 11/23/24 09:45 11/23/24 09:33 11/23/24 10:26
Lab Data
11/23/24 07:51
11/23/24 07:50
Laboratory Results
11/23/24 11/23/24
07:50 08:25
PT 21.7 H
INR 1.83
APTT 36.5 H
pH 7.40
pCO2 21 L
pO2 284 H
HCO3 13.0 L*
O2 Delivery Level
Diagnostic Testing:
Physical Exam
-
Exam:
Well-nourished and well-developed in no apparent distress
HEENT-atraumatic, normocephalic
Neck-supple, no JVD, no bruit
Heart- irregular with systolic murmur and tachycardia
Chest-clear to auscultation, no wheezes, crackles
Back-no tenderness
Abdomen-soft, nontender, nondistended, no hepatosplenomegaly
Extremities-no cyanosis, clubbing, 1-2+ lower extremity edema
Integument-intact, no rashes, lesions or ecchymosis
Neurology-alert and oriented, nonfocal motor and sensory exam
Assessment
-
69-year-old occasional cigar smoking gentleman with a history of atrial fibrillation, cardioversions, CAD, heart failure with reduced EF, glaucoma, cerebellar stroke, hypertension, hyperlipidemia, and severe aortic stenosis came in for TAVR are
procedure and when he bent over to untie his shoes he had an episode of unresponsiveness with left gaze and urinary incontinence resulting in stroke alert-subsequently went to right heart catheterization and hvac instructor consulted for critical care
management 11/23/2024.
Cardiogenic shock
Status post emergent RHC
Syncope/seizure
Mild hyponatremia
Mild hyperkalemia
KATE
Hypoglycemia
Transaminitis with elevated total bilirubin
Recent history of right pleural effusion-history of thoracentesis 11/15/24--1000 mL clear yellow fluid
Conditions present prior to admission:
Hypertension.
Hyperlipidemia.
Cerebellar stroke.
Glaucoma.
CAD.
CHF reduced EF.
Atrial fibrillation.
Cardioversions.
Severe aortic stenosis.
Cataract.
PAD
Chronic left maxillary sinusitis
Bilateral total knee replacement.
Plan
Patient was transferred to medical intensive care unit in critical condition
Supplemental oxygen if needed
High flow oxygen if needed
Noninvasive ventilation if needed
Nebulizers if needed-currently not bronchospastic
Aspiration precautions
Cardiology following-correspondence reviewed
All previous CTs of the chest, echocardiograms, cardiac catheterizations were reviewed
Diuresis as tolerated
Inotropes as needed
Monitor renal function, electrolytes, intake/output, lower extremity edema and weight
Replace electrolytes as needed
Pressors as needed-on norepinephrine
Bumex drip also initiated
Heparin drip continues
TAVR when medically stable
Neurology following-correspondence reviewed-seizure suspected
CT head without acute abnormalities
Eventually check MRI brain
Monitor blood sugar
Insulin supplementation as needed
Follow liver functions
DVT prophylaxis-on heparin
Nutrition
Early mobilization
Critical care statement: A total of 55 minutes of critical care time was provided for this patient today. This includes management of unstable vital signs, evaluation of the patient at bedside, reviewing the patient's pertinent medical records
including radiographs, microbiology, laboratory evaluations, and discussion with primary team, consultants, pharmacy, nutrition, physical therapy, case management, charge nurse, critical care nursing, and respiratory therapy.
Diagnostic data
Chest x-ray 11/15/2024-no active cardiopulmonary disease, lungs are clear
CT cardiac 10/24/2024-no evidence for central pulmonary artery filling defect, 2.1 cm intraluminal thrombus in the left atrial appendage, moderate-sized right pleural effusion, mild interstitial and alveolar cardiogenic pulm edema, mild mediastinal
lymphadenopathy, atherosclerotic plaques, mild diverticulosis
CT head 11/23/2024-no acute intracranial abnormalities, chronic left maxillary sinusitis
Echocardiogram 11/23/2024-EF 15-20%, moderate aortic regurgitation
Cardiac catheterization 10/12/2024-severely elevated biventricular filling pressures, severe three-vessel CAD, severe low-flow gradient aortic stenosis
Data Reviewed
-
PFT: Report reviewed by me
Radiology: Report reviewed by me
CT Scan: Report reviewed by me
Medical Tests (Nuc Med, Echo etc): Report reviewed by me
Labs: Labs reviewed by me
Old Records: Reviewed
Critical Care Time (in minutes): 55
[2024-11-23 14:43] LABS: Mixed Venous O2 Saturation 66.2 %
--- NOTE | 2024-11-23 14:44 | PTCARENOTE ---
Pt returned from lab rep; RIJ Cordis, Holcomb Ysabel catheter floated to 60, all lines leveled and zeroed; Dobutamine, Heparin, Levo and Bumex all infusing see flow sheet for details; A-fib on monitor and VSS; condom catheter applied; awaiting CT scan.
[2024-11-23 14:47] LABS: B.E. -7.5 mmol/L; Ionized Calcium 1.15 mMOL/L (1.15-1.33); O2 Saturation % 98.9 % (94-98); PCO2 27 mmHg (35-48); PO2 98 mmHg (83-108); Potassium 4.8 mMOL/L (3.5-5.1); Sodium 125 mMOL/L (136-145); pH 7.38 (7.35-7.45)
[2024-11-23 14:55] LABS: Lactic Acid 1.5 mmol/L (0.7-2.0)
[2024-11-23 16:29] LABS: APTT 61.1 Sec (23.4-35.0)
[2024-11-23 16:50] LABS: Blood Urea Nitrogen 57 mg/dl (9-20); Calcium 7.9 mg/dl (8.4-10.2); Carbon Dioxide 16 mmol/L (22-30); Chloride 100 mmol/L (98-107); Estimated Creatinine Clearance 39 ml/min; Glucose 92 mg/dl (70-99); Potassium 4.8 mmol/L (3.5-5.1); Sodium 125 mmol/L (135-145); eGFR 42.57
--- NOTE | 2024-11-23 17:03 | PTCARENOTE ---
Burgess catheter placed per CVNP order.
[2024-11-23 19:41] LABS: Lactic Acid 1.7 mmol/L (0.7-2.0)
[2024-11-23] MEDS: SODIUM BICARBONATE 100 MEQ IV (19:41)
[2024-11-23] MEDS: CALCIUM GLUCONATE 1000 MG IV (19:50)
[2024-11-23] MEDS: COSOPT EYE DROPS 1 DROP BOTH EYES (19:51)
--- NOTE | 2024-11-23 20:00 | PTCARENOTE ---
Assumed care of patient at 1900. Patient found in bed at time of assessment having just returned from CT scan. Patient is AOx4, follows commands appropriately, moves all extremities. Lung sounds are clear and equal bilaterally, saO2 is 95% on RA.
Heart sounds are irregular, there is a murmur present on auscultation, patient is in afib with PVCs on the monitor HR 100s-120s. Patient has normal palpable radial pulses and weak but palpable dorsalis pedis pulses. Patient has +2 BLE edema with
observable nonpainful, non itchy redness that patient reports started shortly after initiating farxiga. Patient has active BS will be NPO PMN for potential TAVR in AM and has coude marcelo catheter draining clear yellow urine. Some generalized
bruising and scabs observed patient takes eliquis at home last dose Wednesday. Patient has the following lines: R IJ cordis with swan joni at 60cm, L radial [place], R FA PIV and R AC PIV. Patient has the following gtts: Levo@10, Dobut@5, Heparin@1200,
Bumex@1, and Cordis KVO. Patient has no c/o pain. Call pierre within reach.
[2024-11-23 20:56] LABS: B.E. -2.6 mmol/L; HCO3 19.9 mmol/L (21-28); Ionized Calcium 1.11 mMOL/L (1.15-1.33); O2 Saturation % 98.3 % (94-98); PCO2 28 mmHg (35-48); PO2 91 mmHg (83-108); Potassium 4.2 mMOL/L (3.5-5.1); Sodium 129 mMOL/L (136-145); pH 7.46 (7.35-7.45)
[2024-11-23 20:57] LABS: O2 Therapy nasal cannula
[2024-11-23 23:30] LABS: APTT 101.9 Sec (23.4-35.0)
[2024-11-24] VITALS (27 sets, daily range): BP systolic 83–112; BP diastolic 63–96; BMI 27.0
--- NOTE | 2024-11-24 00:30 | PTCARENOTE ---
Patient reassessed. Patient remains hypotensive but maintains MAP goal >65 and is asymptomatic. Remains Afib on the monitor with frequent PVCs. Call pierre within reach.
[2024-11-24] MEDS: BUMEX 50 IV (00:43)
[2024-11-24] MEDS: LEVOPHED 250 IV ×2 (00:43→15:14)
[2024-11-24] MEDS: DOBUTREX 500 MG 250 IV (03:01)
[2024-11-24 03:38] LABS: Hematocrit 40.4 % (39.0-52.0); Hemoglobin 13.7 g/dL (13.0-18.0); Mean Corp Hgb Conc. 33.9 g/dL (33.0-37.0); Mean Corpuscular Hgb 27.1 pg (27.0-31.0); Mean Platelet Volume 10.4 fL (7.4-10.4); Platelet Count 181 10^3/uL (130-400); Red Blood Cell Count 5.05 10^6/uL (4.70-6.10); Red Cell Dist. Width 16.5 % (11.5-14.5); White Blood Cell Count 6.6 10^3/uL (4.8-10.8)
[2024-11-24 04:13] LABS: ALT (SGPT) 296 U/L (0-50); AST (SGOT) 210 U/L (17-59); Albumin 2.7 g/dl (3.5-5.0); Alkaline Phosphatase 219 U/L (38-126); Blood Urea Nitrogen 53 mg/dl (9-20); Calcium 7.8 mg/dl (8.4-10.2); Carbon Dioxide 22 mmol/L (22-30); Chloride 98 mmol/L (98-107); Estimated Creatinine Clearance 41 ml/min; Glucose 119 mg/dl (70-99); Magnesium 2.2 mg/dl (1.6-2.3); Potassium 4.2 mmol/L (3.5-5.1); Sodium 129 mmol/L (135-145); Total Protein 5.5 g/dl (6.3-8.2); eGFR 45.78
[2024-11-24] MEDS: ASPIR LOW (ENTERIC COATED) 81 MG PO (06:31)
--- NOTE | 2024-11-24 07:19 | PTCARENOTE ---
Patient reassessed. Remains Afib on the monitor. Hygiene care provided. Patient clipped linens changed. No c/o pain. Transferred to calibration laboratory technician this AM by calibration laboratory technician nurses. Heparin turned off. Remains on Bumex, Dobut and Levo.
--- NOTE | 2024-11-24 07:36 | W.PN.INTV ---
Today's Communication / Plan
Recommendations
Neurologically stable
Scheduled for TAVR
If remains neurologically and hemodynamically stable and downgraded to telemetry then marble mason will sign off-please call pulmonary if respiratory issues arise
Assessment
-
69-year-old occasional cigar smoking gentleman with a history of atrial fibrillation, cardioversions, CAD, heart failure with reduced EF, glaucoma, cerebellar stroke, hypertension, hyperlipidemia, and severe aortic stenosis came in for TAVR are
procedure and when he bent over to untie his shoes he had an episode of unresponsiveness with left gaze and urinary incontinence resulting in stroke alert-subsequently went to right heart catheterization and marble mason consulted for critical care
management 11/23/2024.
Cardiogenic shock
Status post emergent RHC
Syncope/seizure
Mild hyponatremia
Mild hyperkalemia
KATE
Hypoglycemia
Transaminitis with elevated total bilirubin
Recent history of right pleural effusion-history of thoracentesis 11/15/24--1000 mL clear yellow fluid
Conditions present prior to admission:
Hypertension.
Hyperlipidemia.
Cerebellar stroke.
Glaucoma.
CAD.
CHF reduced EF.
Atrial fibrillation.
Cardioversions.
Severe aortic stenosis.
Cataract.
PAD
Chronic left maxillary sinusitis
Bilateral total knee replacement.
Plan
Neurologically and hemodynamically stable
Supplemental oxygen as needed
Nebulizers if needed-currently not bronchospastic
Aspiration precautions per protocol
Cardiology following-correspondence reviewed
All previous CTs of the chest, echocardiograms, cardiac catheterizations were reviewed
Diuresis continues as tolerated
Inotropes as needed
Monitor renal function, electrolytes, intake/output, lower extremity edema and weight
Replace electrolytes as needed
Pressors as needed-on norepinephrine
Bumex drip also initiated
Heparin drip continues
TAVR scheduled for 11/24/2024
Is stable
Neurology following-correspondence reviewed-seizure suspected
CT head without acute abnormalities
Eventually check MRI brain
Monitor blood sugar
Insulin supplementation as needed
Follow liver functions
DVT prophylaxis-on heparin
Nutrition
Early mobilization
Reviewed with at the bedside
If stable post TAVR and downgraded to telemetry then marble mason will sign off-call pulmonary if respiratory issues arise
Critical care statement: A total of 35 minutes of critical care time was provided for this patient today. This includes management of unstable vital signs, evaluation of the patient at bedside, reviewing the patient's pertinent medical records
including radiographs, microbiology, laboratory evaluations, and discussion with primary team, consultants, pharmacy, nutrition, physical therapy, case management, charge nurse, critical care nursing, and respiratory therapy.
Diagnostic data
Chest x-ray 11/15/2024-no active cardiopulmonary disease, lungs are clear
CT cardiac 10/24/2024-no evidence for central pulmonary artery filling defect, 2.1 cm intraluminal thrombus in the left atrial appendage, moderate-sized right pleural effusion, mild interstitial and alveolar cardiogenic pulm edema, mild mediastinal
lymphadenopathy, atherosclerotic plaques, mild diverticulosis
CT head 11/23/2024-no acute intracranial abnormalities, chronic left maxillary sinusitis
Echocardiogram 11/23/2024-EF 15-20%, moderate aortic regurgitation
Cardiac catheterization 10/12/2024-severely elevated biventricular filling pressures, severe three-vessel CAD, severe low-flow gradient aortic stenosis
Subjective Dataa
Subjective Data
Date of Service:
Date of Service: November 24, 2024
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
Subjective:
No complaints of worsening shortness of breath, no seizures, no chest pain or abdominal pain
Review of Systems
General: Other (Per HPI)
Objective Data
Data Reviewed
Vital Signs / I&O / Oxygen:
Vital Signs
Temp Pulse Resp BP Pulse Ox
97.3 F 112 21 94/79 98
11/24/24 06:00 11/24/24 06:15 11/24/24 06:15 11/24/24 06:00 11/24/24 06:15
Intake and Output
11/23/24 11/24/24 11/25/24
06:59 06:59 06:59
Intake Total 1531.7 / 1531.7
Output Total 2865 / 2865
Balance -1333.3 / -1333.3
SaO2 98
Nasal Cannula flow liters per 2
minute
Physical Exam
General: Respiratory Distress (n) and Comfortable
HEENT: Normocephalic, Anicteric and Moist Mucous Membranes
Cardiovascular: Regular Rhythm
Respiratory: Wheeze (n), Crackles (n), Rhonchi, Non-Labored Respirations and Accessory Resp Muscle Use (n)
GI: Soft, Non Distended and Non Tender
Neurology: Awake, Alert and No Motor Deficits
Skin: Warm, Good Color, Cyanosis (n) and Jaundice (n)
Labs/Micro/Reports
Lab Data
11/24/24 03:06
11/24/24 03:06
Laboratory Results
11/23/24 11/23/24 11/23/24
07:50 08:25 14:28
PT 21.7 H
INR 1.83
APTT 36.5 H
pH 7.40 7.38
pCO2 21 L 27 L
pO2 284 H 98
HCO3 13.0 L* 16.0 L
O2 Delivery Level Not Reportable
11/23/24 11/23/24 11/23/24
15:55 20:49 23:12
PT
INR
APTT 61.1 H 101.9 H
pH 7.46 H
pCO2 28 L
pO2 91
HCO3 19.9 L
O2 Delivery Level nasal cannula
[2024-11-24 08:20] LABS: ACT-LR - POC 303 Seconds (116-155)
--- NOTE | 2024-11-24 08:40 | W.CVOR.SURPR ---
CVOR Surgeon Immed Pre Op
-
I have examined this patient prior to performance of the scheduled procedure.
The patient's condition is unchanged from the time of the dictated/written History and
Physical and the patient is able to undergo the scheduled procedure.
--- NOTE | 2024-11-24 08:41 | W.IMMPOSTOP ---
Surgical Immed Post Op Note
-
Dictated: [id number]
CARDIAC SURGERY OPERATIVE NOTE:
Preoperative Dx:
Severe aortic stenosis (P/M: 41/23, WICHO 0.5, DVI 0.2)
Ucip-iq-iprmwptq aortic insufficiency
Mild MR
Moderate TR
Reduced LVEF 15-20%
Inotrope dependant [id number]-bz-ngsfwbs combined systolic & diastolic cardiogenic shock
Moderate pulmonary HTN (PA 74/43) w/ PCWP 35mmHg
Postoperative Dx:
Same
LVEDP remains at 35mmHg
Procedures:
1) R CFV access w/ U/S and fluoroscopic guidance, Seldinger technique, 6Fr sheath placement
2) R FLAT FOLDING MACHINE OPERATOR access w/ tactile, U/S, and fluoroscopic guidance, Seldinger technique, 6Fr sheath placement
3) Placement of temporary RV pacing wire, threshold testing
4) Placement of pigtail catheter in RCC w/ limited aortography & confirmation of co-planar valve deployment angles
5) L FLAT FOLDING MACHINE OPERATOR access w/ tactile, U/S, and fluoroscopic guidance, micropuncture technique, limited angiography, 6Fr sheath placement
6) Placement of 8Fr dilator, perclose placement x 2 into L FLAT FOLDING MACHINE OPERATOR, 8Fr sheath placement
7) Placement of Ryan E-sheath (systemic heparinization)
8) Wire purchase across stenotic AV (AL-1, table-J, soft-tip straight, LVEDP assessment, extra-stiff)
9) L TF TAVR w/ placement of 29mm KIMBERLY 3 valve
10) Completion aortography
11) Completion TTE (mean gradient 3mmHg, trace PVL)
12) Removal of elmkt-obyalhzo-mogcvd & Ryan E-sheath from L FLAT FOLDING MACHINE OPERATOR w/ mgmt w/ perclose x 2, 8Fr angioseal, manual pressure
13) Completion L ileofemoral angiography
14) Removal of temporary pacing wire
15) Removal of R FLAT FOLDING MACHINE OPERATOR sheath w/ mgmt w/ 6Fr angioseal, manual pressure
16) Removal of R CFV sheath w/ mgmt w/ manual pressure (protamine)
Prepress Specialist:
Dr. Lester Smith
Cardiac Surgeon:
Dr. Johann Hung
Anesthesia:
MAC w/ local to B/L groins
Implants:
Ryan [employer], KIMBERLY 3 valve, 29mm, SN: [id number]
LCFA: perclose x 2, 8Fr angioseal
RCFA: 6Fr angioseal
Complications:
None
Cath Data:
Start: 0752hrs, Deploy: 0822hrs, End: 0837hrs
FT: 9.1min, mGy: 398.54, DAP' 45.1939, Contrast: 89mL
Post-TTE: mean gradient 3mmHg, trace PVL
Condition:
Stable/guarded to CVICU
[2024-11-24 08:55] LABS: B.E. - POC -2.9 mmol/L; Glucose - POC 116 mg/dl (70-99); HCO3 - POC 21 mmol/L (21-28); Hematocrit - POC 41 % PCV (42-52); Hemodilution- POC No; Hemoglobin Calculated - POC 13.9; Ionized Calcium - POC 1.12 mmol/L (1.15-1.33); O2 Saturation %Calculated-POC 98.3 % (94-98); PCO2 - POC 32 mmHg (35-48); PO2 - POC 107 mmHg (83-108); Potassium - POC 3.3 mmol/L (3.5-5.1); Sodium - POC 132 mmol/L (136-145); Specimen Type - POC Arterial; pH - POC 7.42 (7.35-7.45)
--- NOTE | 2024-11-24 09:06 | CM ---
CM following for DC planning needs.
Pt. in OR today for TAVR.
Antic. DC plan is for home w/ CT Transitional Care RN.
CM will cont. to follow.
--- NOTE | 2024-11-24 09:20 | W.PN.UPDATE ---
Update Note
Progress Note Update
69-year-old male with past medical history severe aortic stenosis, atrial fibrillation, coronary artery disease, heart failure with reduced ejection fraction, glaucoma, cerebellar stroke, hypertension, hyperlipidemia, history of pneumonia
and osteoarthritis presented for a TAVR on 11/23/2024 but pre-op he was noted to be unresponsive with a left gaze and urinary incontinence. CT Head was negative and neurology was consulted. With his low blood pressures with suspected cardiogenic
shock, cardiology placed RIJ cordis with [place], started him on Dobutamine, Levophed, Bumex infusion and IV Heparin (in lieu of home Eliquis). TAVR postponed until 11/24.
U.O.:� 1100
IV Infusions: Dobutamine @ 5; Levophed @ 6
�
NEURO: drowsy, pupils +2mm B/L , YAO to command
RESP: Lungs clear B/L. 95% on 4L NC
CV: RRR +S1, S2, no S3, no�rub, no murmur. RIJ w/[place] locked @ 65cm. PA 47/18; CVP 6
ABD: round, soft, no BS
EXT: no edema, +2/4 DP pulses B/L, no femoral bruit, right radial A-line intact
: Burgess with clear yellow urine
�
A/P: POD #0 s/p L TF TAVR #29mm KIMBERLY 3 valve
- check CXR for [place] placement and BMP/CBC
- will need instruction regarding antibiotic prophylaxis for dental and invasive procedures
# Acute on chronic systolic heart failure (HFrEF 25-30%)
- wean Levophed/Dobutamine as BP permits
- resume GDMT: Toprol, Valsartan, lasix, farxiga when off infusions
# Atrial fibrillation/recent JOE thrombus (10/24/24)
- IV Heparin this evening and transition to Eliquis
# Glaucoma
- continue dorzolamide-timolol
�
# acute surgical blood loss anemia-expected
- trend CBC
# Hx R cerebellar CVA
- neuro status stable
�
# Hyperlipidemia
- resume�Lipitor 40mg HS
# Positive Nasal MRSA screen
- received Ancef/Vanco pre-op
# Tobacco abuse
- advise on tobacco cessation
[2024-11-24] MEDS: VANCOCIN 530 MG IV (09:28)
[2024-11-24] MEDS: ANCEF 10 IV ×2 (09:29)
[2024-11-24] MEDS: COSOPT EYE DROPS BOTH EYES (09:29)
--- NOTE | 2024-11-24 09:53 | ITS.CL.PN ---
Electronic Transaction Implementer - Procedure Note
Procedure
Procedure Note:
TRANSCATHETER AORTIC VALVE REPLACEMENT REPORT
Date of Procedure: 11/24/2024
Referring: Dr. Lester Smith MD, PhD
Indication: severe symptomatic aortic stenosis
Operators: Lester Smith MD, PhD (interventional cardiology); Dr. Johann Hung MD (CT surgery)
Anesthesia: conscious sedation provided by the anesthesia staff
PROCEDURE: transfemoral, transcatheter aortic valve replacement with a Ryan Sabrina S3 Ultra 29 mm valve
ACCESS:
1. 6F right femoral vein (closure: manual hemostasis)
2. 6F right common femoral artery (closure: Angioseal)
3. 16F left common femoral artery (closure: Perclose x2, Angioseal x1)
ULTRASOUND GUIDED VASCULAR ACCESS (right femoral vein): Ultrasound was utilized for vascular access. The vessel was visualized under ultrasound and noted to be patent. An image of the vessel was stored permanently in the patient's medical record.
Under direct ultrasound guidance, vascular access was obtained using a modified Seldinger technique and a 6 [place] sheath was placed.
ULTRASOUND GUIDED VASCULAR ACCESS (right common femoral artery): Ultrasound was utilized for vascular access. The vessel was visualized under ultrasound and noted to be patent. An image of the vessel was stored permanently in the patient's medical
record. Under direct ultrasound guidance, vascular access was obtained using a modified Seldinger technique and a 6 [place] sheath was placed.
ULTRASOUND GUIDED VASCULAR ACCESS (left common femoral artery): Ultrasound was utilized for vascular access. The vessel was visualized under ultrasound and noted to be patent. An image of the vessel was stored permanently in the patient's medical
record. Under direct ultrasound guidance, vascular access was obtained using a modified Seldinger technique and a 8 [place] sheath was placed.
HEMODYNAMIC DATA
LV 35 mmHg
PROCEDURE NARRATIVE:
The patient was prepped and draped in standard sterile fashion. Conscious sedation was provided by the anesthesia staff. 6F right femoral vein and right common femoral artery access was obtained with ultrasound guidance using micropuncture technique
with verification of appropriate arteriotomy location via hand injection angiography. A temporary venous pacing wire was advanced via the right femoral vein to the right ventricle under fluoroscopic guidance with appropriate capture verified. A 5F
pigtail catheter was advanced via the right common femoral artery and seated in the right coronary cusp. Angiography was performed to verify the co-planar angle.
8F left common femoral artery access was obtained with ultrasound guidance using micropuncture technique with verification of appropriate arteriotomy location via hand injection angiography. The arteriotomy was preclosed with two Perclose sutures
followed by replacement of the 8F sheath. Using an AL1 catheter, an Amplatz Superstiff wire was placed in the descending thoracic aorta. The 8F sheath was removed and the 16 F Ryan E-sheath was inserted over the Superstiff wire and into the
descending aorta. Heparin 6500 units was given. The AL1 catheter was re-advanced through the E-sheath to the level of the ascending aorta. The Superstiff wire was exchanged for a soft tipped straight wire which was used to cross the aortic valve and
deposit the AL1 in the LV apex. A J-wire was used to exchange the AL1 for a pigtail catheter in the LV and LVEDP was measured. An Amplatz Extrastiff wire with curved proximal end was advanced through the pigtail catheter and seated in the LV apex.
ACT was checked and confirmed to be >250 seconds.
The valve was brought to the table with orientation and deployment contrast volume verified. The valve was advanced over the Extrastiff wire and into the descending aorta. The balloon was withdrawn, and the valve was mounted on the balloon. The
valve was advanced over the aortic arch and into the aortic valve annulus. The pusher device was withdrawn. Low volume aortography confirmed valve positioning. The valve was deployed during rapid ventricular pacing. The balloon was walked back to
the descending aorta while leaving the wire in place. The patient was resuscitated by anesthesia with recovery of adequate blood pressure. Telemetry demonstrating sinus rhythm. Aortography demonstrated good valve positioning, adequate coronary
filling, and no aortic valve insufficiency. Echocardiography confirmed trace aortic insufficiency. Mean valve gradient was 3 mmHg. The valve deployment system was removed.
The Ryan E sheath was removed, and hemostasis obtained with the two Perclose sutures. Protamine 40 units was given. Aortoiliac angiography demonstrated no evidence of iliofemoral dissection/perforation and good runoff below the common femoral
artery bilaterally. The pacemaker and the pigtail catheter were removed. The right femoral artery sheath was removed using a 6F Angioseal. The right femoral venous sheath was removed with manual pressure.
RADIATION: dose 398 mGy; DAP 45.2 Gy*cm2; fluoroscopy time 9.1 min
CONCLUSIONS
1. successful placement of a Ryan Sabrina S3 Ultra 29 mm transcatheter aortic valve via left transfemoral approach with no acute complications
2. acute on chronic heart failure with elevated filling pressures (LVEDP = 35)
Copy to: Dr. Greg Valentino DO (PCP)
Signed: Lester Smith MD, PhD
--- NOTE | 2024-11-24 10:00 | PTCARENOTE ---
pt received from CCL, oriented, drowsy. YAO, pupils equal and reactive. no c/o pain. A-fib w/ PVCs and runs of VT on the monitor, HR 80-100s. SBP 90-100s. Levophed gtt running as ordered. PAP 40-50s/20s. CVP ~5-9, CI 1.9-2.09. dobutamine gtt running
as ordered. Doppler pedal pulses, palpable radial pulses. pt on 6LNC, 97% POX. lungs clear anteriorly. pt abdomen s/n, denies n/v. Burgess in place, clear yellow urine. b/l groins c/d/i, no s/s of bleeding or hematoma. RIJ cordis/swan maintained. L
radial [place] flushed, zeroed, and calibrated. PIV x2. EKG performed, lab work drawn, CXR completed. see worklist for VS, I&O, and assessment.
[2024-11-24 10:07] LABS: Hematocrit 40.3 % (39.0-52.0); Hemoglobin 13.8 g/dL (13.0-18.0); Mean Corp Hgb Conc. 34.2 g/dL (33.0-37.0); Mean Corpuscular Hgb 27.4 pg (27.0-31.0); Mean Platelet Volume 10.2 fL (7.4-10.4); Platelet Count 130 10^3/uL (130-400); Red Blood Cell Count 5.04 10^6/uL (4.70-6.10); Red Cell Dist. Width 16.5 % (11.5-14.5)
[2024-11-24 10:13] LABS: Blood Urea Nitrogen 46 mg/dl (9-20); Calcium 7.6 mg/dl (8.4-10.2); Carbon Dioxide 23 mmol/L (22-30); Chloride 96 mmol/L (98-107); Estimated Creatinine Clearance 44 ml/min; Glucose 113 mg/dl (70-99); Potassium 3.6 mmol/L (3.5-5.1); Sodium 130 mmol/L (135-145); eGFR 49.47
[2024-11-24] MEDS: CALCIUM GLUCONATE 100 IV (10:22)
[2024-11-24] MEDS: KCL 100 IV ×2 (10:58→18:37)
--- NOTE | 2024-11-24 11:14 | CM ---
Met w/ spouse at bedside. Pt. asleep post procedure.
Plan remains for home w/ CT Transitional Care RN.
--- NOTE | 2024-11-24 11:23 | PTCARENOTE ---
calcium and potassium repleted as ordered, [place] adjusted to ~57cm by ABA Wilkinson at bedside. at bedside.
[2024-11-24] MEDS: ANCEF 5 IV (14:13)
[2024-11-24] MEDS: MAGNESIUM SULFATE 100 IV (14:37)
--- NOTE | 2024-11-24 15:30 | PTCARENOTE ---
pt VSS, b/l groins c/d/i. Doppler DP pulses. pt offers no c/o pain or SOB. Levophed and Dobutamine gtts running as ordered. tolerating ice chips and water. 1g mag rider given as ordered.
[2024-11-24 16:46] LABS: Blood Urea Nitrogen 43 mg/dl (9-20); Calcium 7.7 mg/dl (8.4-10.2); Carbon Dioxide 23 mmol/L (22-30); Chloride 99 mmol/L (98-107); Estimated Creatinine Clearance 47 ml/min; Glucose 119 mg/dl (70-99); Magnesium 2.3 mg/dl (1.6-2.3); Potassium 3.9 mmol/L (3.5-5.1); Sodium 129 mmol/L (135-145); eGFR 53.74
--- NOTE | 2024-11-24 17:00 | PTCARENOTE ---
SEASONAL GREENERY BUNDLER aware of ectopy, BMP drawn, SEASONAL GREENERY BUNDLER aware of results.
[2024-11-24] MEDS: LIPITOR 40 MG PO (17:37)
[2024-11-24] MEDS: CALCIUM CHLORIDE 10% SYRINGE 60 MG IV (17:37)
[2024-11-24] MEDS: FLEXBUMIN 100 IV (19:46)
[2024-11-24] MEDS: CALCIUM GLUCONATE 290 MG IV (20:09)
[2024-11-24] MEDS: SODIUM BICARBONATE 50 MEQ IV (20:09)
[2024-11-24] MEDS: COSOPT EYE DROPS 1 DROP BOTH EYES (20:10)
--- NOTE | 2024-11-24 21:00 | PTCARENOTE ---
Assumed care of patient at 1900. Patient found resting in bed at time of assessment. Patient is AOx4, follows commands appropriately, moves all extremities. Lung sounds are clear and equal bilaterally. Heart sounds have an irregular rate, patient is
Afib with BBB and PVCs on monitor, there is trace edema present in ankles. Radial pulses are palpable and dorsalis pedis pulses are present with doppler. Patient has active BS in all four quadrants and marcelo catheter draining clear yellow urine.
Patient has R groin puncture with 4x4 dressing that is CDI and L groin puncture with 4x4 dressing that is CDI. Patient has R IJ cordis with swan floated at 57cm, L radial Natalee, and 2xPIV in the L arm. Patient is receiving Levo@[address] PA,
administered flexbumin, 1 amp bicarb, and 4g CaGluconate. Patient has no complaints at this time. Call pierre within reach.
[2024-11-25] VITALS (42 sets, daily range): BP systolic 73–133; BP diastolic 52–92; BMI 26.3
[2024-11-25] MEDS: LEVOPHED 250 IV ×2 (01:04→19:46)
--- NOTE | 2024-11-25 01:33 | PTCARENOTE ---
Patient reassessed. Remains afib with pvcs on the monitor. CI at [address] PA notified ordered to resume Dobut@1. Recheck at 0100 showed CI of 2.03 CT PA advised to maintain Dobut at current gtt rate. Patient has no complaints at this time. Call
pierre within reach.
[2024-11-25] MEDS: FLEXBUMIN 100 IV ×2 (03:34→10:06)
--- NOTE | 2024-11-25 03:39 | W.PN.CT ---
Today's Communication / Plan
-
Plan:
-No major issues overnight. Hemodynamically and neurologically intact
-On Dobutamine gtt @ 1, Levophed gtt @ 3
-Currently in rate controlled a-fib @ 70-90's
-Last CI 1.83, MVO2 64.1%
-Maintain marcelo while on dobutamine for accurate I/O's
-Wean off Levophed as bp permits
-A-line currently positional and not reliable
-Groin C/D/I without hematoma
-Repeat echo today
-Cont. current meds (ASA, Lipitor, dobutamine, Levophed; will resume Eliquis)
-OOB into chair
Assessment / Plan
-
Assessment:
S/p L TF TAVR w/ placement of 29mm KIMBERLY 3 valve, by Dr Hung/Luis, on 11/24/24, pod#1
-Severe aortic stenosis (P/M: 41/23, WICHO 0.5, DVI 0.2).
-Ikog-fe-wtszdapc aortic insufficiency
-Mild mitral regurgitation
-Moderate tricuspid regurgitation
-Reduced left ventricular ejection fraction 15%-20%
-Systolic and diastolic CHF
-Inotrope-dependant hecfm-wp-ctehdbp combined systolic and diastolic cardiogenic shock
-Moderate pulmonary hypertension (PA 74/43) with pulmonary capillary wedge pressure 35 mmHg
-Left ventricular end diastolic pressure remains at 35 mmHg.
-3V CAD
-HTN
-HLD
-DJD
-MRSA+ (nasal swab), 11/15/24
-Recent PNA, 09/03
-Prediabetes (hgb A1C 6.1)
-Elevated LFTs, likely d/t shock liver
-KATE, likely prerenal
-Hyponatremia
-Glaucoma
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
-A fib S/P multiple cardioversions (on Eliquis at home)
-Pleural effusion S/P R thoracentesis with evacuation of 1L fluid
-S/P bilateral THR
-S/P bilateral cataracts
Discussed patient care with: Cardiology, Nursing, Respiratory Therapy, Pharmacy and Care Team
Subjective
Procedure
S/p L TF TAVR w/ placement of 29mm KIMBERLY 3 valve, by Dr Hung/Luis, on 11/24/24
-
Date of Service: November 25, 2024
Pt c/o mild incisional pain. Also c/o loss of sense of taste when was on Farxiga
Objective Data
-
PT 21.7 Sec (11.4-14.6) H 11/23/24 07:50
INR 1.83 11/23/24 07:50
APTT 101.9 Sec (23.4-35.0) H 11/23/24 23:12
Vital Signs
Vital Signs
Temp Pulse Resp BP Pulse Ox
98.6 F 83 18 102/65 96
11/25/24 03:18 11/25/24 03:15 11/25/24 03:18 11/25/24 03:00 11/25/24 03:18
CT Intake/Output/Weight
11/24/24 11/24/24 11/25/24
06:59 18:59 06:59
Intake Total 1109.6 / 1531.7 1069.8 / 1559.4 489.6 / 1559.4
Output Total 2265 / 2865 4050 / 5450 1400 / 5450
Balance -1155.4 / -1333.3 -2980.2 / -3890.6 -910.4 / -3890.6
SaO2: 96
Data Reviewed
-
Lab Results: Results Reviewed
Medications: Active Meds Reviewed
Chest X-Ray: Report Reviewed and Image Reviewed
ECG: Report Reviewed and Image Reviewed
[2024-11-25 03:44] LABS: Mixed Venous O2 Saturation 64.1 %
[2024-11-25 03:47] LABS: Hematocrit 39.9 % (39.0-52.0); Hemoglobin 13.1 g/dL (13.0-18.0); Mean Corp Hgb Conc. 32.8 g/dL (33.0-37.0); Mean Corpuscular Hgb 26.7 pg (27.0-31.0); Mean Corpuscular Volume 81.3 fL (80.0-94.0); Mean Platelet Volume 10.1 fL (7.4-10.4); Platelet Count 134 10^3/uL (130-400); Red Blood Cell Count 4.91 10^6/uL (4.70-6.10); Red Cell Dist. Width 16.6 % (11.5-14.5); White Blood Cell Count 6.1 10^3/uL (4.8-10.8)
[2024-11-25 03:47] LABS: Ionized Calcium 1.17 mMOL/L (1.15-1.33)
[2024-11-25 03:55] LABS: INR 1.51; PT 18.4 Sec (11.4-14.6)
[2024-11-25 04:13] LABS: Blood Urea Nitrogen 34 mg/dl (9-20); Calcium 8.5 mg/dl (8.4-10.2); Carbon Dioxide 27 mmol/L (22-30); Chloride 98 mmol/L (98-107); Estimated Creatinine Clearance 50 ml/min; Glucose 116 mg/dl (70-99); Potassium 4.2 mmol/L (3.5-5.1); Sodium 131 mmol/L (135-145); eGFR 58.73
--- NOTE | 2024-11-25 05:06 | PTCARENOTE ---
Patient reassessed. Remains afib on the montior with BBB PVCs. AM hygiene care provided. AM labs obtained. AM EKG obtained. Awaiting CaGluconate from pharmacy for repletion. Levo tapered to 5. Dobut at 1.
[2024-11-25] MEDS: CALCIUM GLUCONATE 290 MG IV ×2 (05:30→21:55)
--- NOTE | 2024-11-25 06:29 | PTCARENOTE ---
Levo tapered to 3. Natalee appears to have become positional arm board applied to patient.
--- NOTE | 2024-11-25 07:16 | W.PN.ANS.POP ---
Anesthesia Post Operative
- Anesthesia Post Op Note
Vital Signs Stable-See Nursing Note: Yes
Airway Patent: Yes
Adequate Pain Control: Yes
Change in Mental Status: No
Current Postoperative Nausea & Vomiting: No
Anesthesia Complications: No
General Anesthetic Recall: No
Unplanned Admission: No
Post Op Hydration Adequate: Yes
[2024-11-25] MEDS: COSOPT EYE DROPS 1 DROP BOTH EYES ×2 (08:20→18:22)
[2024-11-25] MEDS: ASPIR LOW (ENTERIC COATED) 81 MG PO (08:20)
--- NOTE | 2024-11-25 08:26 | PTCARENOTE ---
Received pt from ships equipment engineer RN; pt AAOx3; A-fib on monitor and VSS; Presley Farrell pulled back by CVABA to 51; PIVx2 and Left A-line all lines leveled and zeroed; Dobutamine and Levo infusing see flow sheet for details; hypoactive bowel sounds;
[place] catheter draining clear yellow urine; palpable pulses throughout; B/L groin sites C/D/I; trace lower extremity edema; see nursing documentation for further details.
--- NOTE | 2024-11-25 10:24 | PTCARENOTE ---
traffic analysis technician at bedside.
--- NOTE | 2024-11-25 12:31 | PTCARENOTE ---
Assessment unchanged; A-fib on monitor and VSS; pt OOB x2 to chair; mixed venous obtained; family at bedside and pt eating lunch.
[2024-11-25 12:32] LABS: Mixed Venous O2 Saturation 52.7 %
--- NOTE | 2024-11-25 13:14 | W.PN.CD ---
Addendum entered and electronically signed by Maryjane Witt MD 11/25/24 17:58:
I saw and examined the patient.
The SUPERVISOR [employer]'s note was reviewed and I agree with the note.
Comment:
We performed post TAVR Echo 11/25/24:
CONCLUSIONS
Severely reduced left ventricular systolic function.
Left ventricular ejection fraction is 15% by Velásquez's method of discs.
Flattened septum in systole and diastole consistent with RV pressure and volume
overload.
Normal right ventricular size and function.
S/p Sabrina 29 TAVR with peak/mean gradients of 11/6 mmHg. Trace paravalvular
aortic regurgitation.
No significant change since the prior study of 11/24/24.
Of note he is on Db 2 and Levophed 3 at the time of the study.
He is feeling well in the chair. Explained best case scenario would be he had contractile reserve that will recover with TAVR and GDMT. Cannot resume GDMT while on pressors. Wean vasopressors as as able.
We can consider a trial of Jardiance as he may have lost his taste with Farxiga as it returned when he stopped it preop
Original Note:
Today's Communication / Plan
-
Con't to wean drips as able
plan to restart eliquis tonight
monitor vitals, GDMT when able
Impression / Plan
-
Severe :
-s/p L transfemoral TAVR Sabrina S3 ultra 29mm on 11/24/24
Acute on chronic HFrEF:
-Admitted 11/23/24 with cardiogenic shock, required diuresis. wt down at least 6kg
-con't to require pressors, con't wean
-pt notes he had loss of taste/bad taste with farxiga pre hospital stay. Hold it preprocedure and symptom improved. He also thought he had red and swollen feet r/t that as well.
-Won't tolerate GDMT but will reassess as he improves.
- Echo 11/24/24 EF 15-20, TAVR P/M 7/3mmhg
PAF:
- Eliquis restarted tonight.
-h/o JOE thrombus
Physical Exam
Vital Signs/Labs
Vital Signs
Temp Pulse Resp BP Pulse Ox
99.0 F 86 22 98/79 99
11/25/24 13:00 11/25/24 13:00 11/25/24 13:00 11/25/24 13:00 11/25/24 13:00
11/24/24 11/25/24 11/26/24
06:59 06:59 06:59
Actual Weight 80.4 kg 78.4 kg
11/25/24 03:09
11/25/24 03:10
PT 18.4 Sec (11.4-14.6) H 11/25/24 03:10
INR 1.51 11/25/24 03:10
APTT 101.9 Sec (23.4-35.0) H 11/23/24 23:12
Magnesium 2.3 mg/dl (1.6-2.3) 11/24/24 16:19
11/15/24
08:37
Yah-W-Nomjsxiaehr Pept [id number]
Data Reviewed
-
Date of Service: November 25, 2024
EKG: Tracing Personally Visualized and interpreted (AF, LBBB 82 bpm )
X-Ray/CT/US/MRI/NUC/PET: Report Reviewed by me (CXR post op changes, no pneumothorax. )
Labs: Labs Reviewed by me
--- NOTE | 2024-11-25 13:30 | PTCARENOTE ---
Assumed care of patient. Walking rounds completed with previous RN. Pt assessed while he was sitting in the chair. Pt alert and oriented x4. Denies pain, shortness of breath, nausea, and lightheadedness. YAO with equal strength throughout. Afib with
LBBB on tele with rates in the 70s. BP supported with levophed. PA pressures 45-50s/24-30s. CVP 10. Heart tones audible. Bilateral radial and DP pulses palpable. No edema noted. POX 99% on 2L NC, titrated to 1L NC, POX 98%. Lungs diminished in the
bases. No cough noted. Abdomen soft, nontender. +BS. Pt reports last BM 11/22, denies constipation. Burgess catheter intact draining adequate amounts of mala urine. B/l groin sites covered with 4x4& tegaderm. Right IJ cordis intact with swan floated
to 51cm. Left radial garcia intact. All lines flushed, leveled, zeroed. Left AC 20g PIV and Left wrist 20g PIV intact. Dobutamine infusing at 2mcg/kg/min. See MAR for medication administration. See worklist for complete nursing assessment. Plan of
care reviewed and patient in agreement.
[2024-11-25 14:25] LABS: Mixed Venous O2 Saturation 54.2 %
[2024-11-25] MEDS: ALBUMIN 5% 250 IV ×3 (14:37→19:03)
--- NOTE | 2024-11-25 16:00 | PTCARENOTE ---
Pt reassessed. Remains sitting in the chair. Afib with LBBB on tele with rates in the 80s. POX 95% on RA. B/l groins stable. All lines remain intact. Burgess continues to drain adequate urine. No other acute changes.
[2024-11-25] MEDS: LIPITOR 40 MG PO (18:22)
[2024-11-25] MEDS: ELIQUIS 5 MG PO (19:46)
--- NOTE | 2024-11-25 20:00 | PTCARENOTE ---
Assumed care of patient at 1900. Patient found in bed at time of assessment. Patient is AOx4, follows commands appropriately, moves all extremities. Lung sounds are clear and equal bilaterally saO2 97% on RA. Heart sounds are irregular patient is
afib on the monitor, trace pedal edema present, normal palpable radial pulses and pedal pulses present with doppler. Patient has active BS in all four quadrants and a marcelo draining mala urine. There is a R groin puncture with 4x4 dressing that is
CDI and L groin puncture with 4x4 dressing that is CDI. Patient has R IJ cordis with swan @51 L radial garcia, L wrist 20G PIV and L AC 20G PIV. Patient has no complaints at this time. Call pierre within reach.
[2024-11-25 21:02] LABS: Mixed Venous O2 Saturation 44.5 %
--- NOTE | 2024-11-25 21:14 | PTCARENOTE ---
Patient with low CI at approx [address] PA notified. Received orders for MVO2 along with scheduled BMP. Awaiting results.
[2024-11-25 21:28] LABS: Blood Urea Nitrogen 28 mg/dl (9-20); Calcium 8.4 mg/dl (8.4-10.2); Carbon Dioxide 23 mmol/L (22-30); Chloride 95 mmol/L (98-107); Estimated Creatinine Clearance 66 ml/min; Glucose 114 mg/dl (70-99); Sodium 128 mmol/L (135-145); eGFR > 60.00
[2024-11-25] MEDS: SODIUM BICARBONATE 50 MEQ IV (21:43)
--- NOTE | 2024-11-25 21:49 | PTCARENOTE ---
MVo2 44.[address] PA in addition to BMP results. Orders received to administer 1 amp bicarb and 4 g CaGluconate. Dobut to remain @2. Levo remains at 3.
[2024-11-25 21:50] LABS: Magnesium 1.9 mg/dl (1.6-2.3)
[2024-11-26] VITALS (29 sets, daily range): BP systolic 75–126; BP diastolic 57–94; BMI 27.8
[2024-11-26 03:25] LABS: Mixed Venous O2 Saturation 62.3 %
[2024-11-26 03:36] LABS: Hematocrit 35.9 % (39.0-52.0); Hemoglobin 11.8 g/dL (13.0-18.0); Mean Corp Hgb Conc. 32.9 g/dL (33.0-37.0); Mean Corpuscular Hgb 26.8 pg (27.0-31.0); Mean Corpuscular Volume 81.6 fL (80.0-94.0); Red Cell Dist. Width 16.6 % (11.5-14.5); White Blood Cell Count 5.7 10^3/uL (4.8-10.8)
[2024-11-26 03:40] LABS: Lactic Acid 0.8 mmol/L (0.7-2.0)
[2024-11-26 03:41] LABS: Blood Urea Nitrogen 27 mg/dl (9-20); Calcium 8.9 mg/dl (8.4-10.2); Carbon Dioxide 27 mmol/L (22-30); Chloride 97 mmol/L (98-107); Estimated Creatinine Clearance 73 ml/min; Glucose 92 mg/dl (70-99); Magnesium 1.8 mg/dl (1.6-2.3); Sodium 131 mmol/L (135-145); eGFR > 60.00
--- NOTE | 2024-11-26 03:57 | W.PN.CT ---
Today's Communication / Plan
-
Plan:
-No major issues overnight. Hemodynamically and neurologically intact
-On Dobutamine gtt @ 2, Levophed weaned from 3 to 1 overnight
-Currently in rate controlled a-fib @ 70-90's
-Last CI 2.12-> 1.90, MVO2 64.1%
-Maintain marcelo while on dobutamine for accurate I/O's. 24hrs u/o 1170 mL
-Wean off Levophed as bp permits
-Wean off dobutamine as cardiac index permits
-Groin C/D/I without hematoma
-Repeat echo yesterday 11/24 showed a well seated TAVR with PG/MG 7/3 mmHg, trace AI, EF 15-20%
-Resumed Eliquis
-Cont. current meds (ASA, Lipitor, dobutamine, Levophed, Eliquis)
-OOB into chair
-Consider diuresis today, noted to have LE pitting edema, h/h appears hemodiluted, lactic acid on the lower end of normal. May need to increase dobutamine while diuresing
Assessment / Plan
-
Assessment:
S/p L TF TAVR w/ placement of 29mm KIMBERLY 3 valve, by Dr Hung/Luis, on 11/24/24, pod#2
-Severe aortic stenosis (P/M: 41/23, WICHO 0.5, DVI 0.2).
-Unwa-dc-jutsmpiy aortic insufficiency
-Mild mitral regurgitation
-Moderate tricuspid regurgitation
-Reduced left ventricular ejection fraction 15%-20%
-Systolic and diastolic CHF
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
-Moderate pulmonary hypertension (PA 74/43) with pulmonary capillary wedge pressure 35 mmHg
-Left ventricular end diastolic pressure remains at 35 mmHg.
-3V CAD
-HTN
-HLD
-DJD
-MRSA+ (nasal swab), 11/15/24
-Recent PNA, 09/03
-Prediabetes (hgb A1C 6.1)
-Elevated LFTs, likely d/t shock liver
-KATE, likely prerenal
-Hyponatremia
-Glaucoma
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
-A fib S/P multiple cardioversions (on Eliquis at home)
-Pleural effusion S/P R thoracentesis with evacuation of 1L fluid
-S/P bilateral THR
-S/P bilateral cataracts
Discussed patient care with: Cardiology, Nursing, Respiratory Therapy, Pharmacy and Care Team
Subjective
Procedure
S/p L TF TAVR w/ placement of 29mm KIMBERLY 3 valve, by Dr Hung/Luis, on 11/24/24
-
Date of Service: November 26, 2024
Pt C/O mild incisional pain, otherwise feels well
Objective Data
-
Lab Results
11/26/24 03:16
11/26/24 03:16
PT 18.4 Sec (11.4-14.6) H 11/25/24 03:10
INR 1.51 11/25/24 03:10
APTT 101.9 Sec (23.4-35.0) H 11/23/24 23:12
Vital Signs
Vital Signs
Temp Pulse Resp BP Pulse Ox
98.7 F 76 18 114/76 97
11/26/24 03:22 11/26/24 03:15 11/26/24 03:22 11/26/24 03:02 11/26/24 03:22
CT Intake/Output/Weight
11/25/24 11/25/24 11/26/24
06:59 18:59 06:59
Intake Total 1397.1 / 2466.9 1007.4 / 1540.8 533.4 / 1540.8
Output Total 1590 / 5640 640 / 920 280 / 920
Balance -192.9 / -3173.1 367.4 / 620.8 253.4 / 620.8
SaO2: 97 (RA)
Physical Exam
-
General: Awake, Oriented and AOx3
Cardiovascular: Regular rate & rhythm, No Murmurs, No Rub and No Gallop
Respiratory: Decreased Breath Sounds (at bases, otherwise clear)
Sternum: Stable
Incision: Clean, Dry, Intact and Dressing Intact
Extremities: Edema +2
Data Reviewed
-
Lab Results: Results Reviewed
Medications: Active Meds Reviewed
Chest X-Ray: Report Reviewed and Image Reviewed
ECG: Report Reviewed and Image Reviewed
--- NOTE | 2024-11-26 04:00 | PTCARENOTE ---
Patient reassessed. Remains afib on the monitor. Levo tapered to 1 mcg. Assisted patient oob to chair without incident. AM labs obtained. AM hygiene care provided. Call pierre within reach.
[2024-11-26 05:21] LABS: Mean Platelet Volume 9.5 fL (7.4-10.4); Platelet Count 96 10^3/uL (130-400)
[2024-11-26] MEDS: DOBUTREX 500 MG 250 IV (05:34)
[2024-11-26] MEDS: ASPIR LOW (ENTERIC COATED) 81 MG PO (08:10)
[2024-11-26] MEDS: ELIQUIS 5 MG PO ×2 (08:10→19:26)
[2024-11-26] MEDS: MAGNESIUM OXIDE 500 MG PO ×2 (08:10→19:26)
[2024-11-26] MEDS: BUMEX 50 IV ×2 (08:11→17:44)
[2024-11-26] MEDS: COSOPT EYE DROPS 1 DROP BOTH EYES ×2 (08:11→19:27)
--- NOTE | 2024-11-26 08:31 | PTCARENOTE ---
Received pt from slot shift supervisor RN; pt AAOx3; A-fib on monitor and VSS; RIAlison Presley Paige floated to 51, Left A-line and PIV x2 all lines leveled and zeroed; Levo and Dobutamine infusing see flow sheet for details; Bumex drip ordered and started see
flow sheet for details; Lungs diminished; IS to 2000; hypoactive bowel sounds; Burgess catheter draining mala yellow urine; positive radial pulses; Doppler lower extremity pulses present; +1 lower extremity edema noted; all surgical sites C/D/I; see
nursing documentation for further details.
--- NOTE | 2024-11-26 09:41 | PTCARENOTE ---
[place]-Ysabel catheter pulled back by CVNP to 49.
--- NOTE | 2024-11-26 12:10 | PTCARENOTE ---
Assessment unchanged; A-fib on monitor and VSS; pt OOB into chair; Levo, Bumex and Dobutamine infusing see flow sheet for details; family at bedside.
[2024-11-26 12:32] LABS: Blood Urea Nitrogen 27 mg/dl (9-20); Calcium 8.5 mg/dl (8.4-10.2); Carbon Dioxide 26 mmol/L (22-30); Chloride 94 mmol/L (98-107); Estimated Creatinine Clearance 82 ml/min; Glucose 108 mg/dl (70-99); Magnesium 1.7 mg/dl (1.6-2.3); Potassium 3.3 mmol/L (3.5-5.1); Sodium 129 mmol/L (135-145); eGFR > 60.00
[2024-11-26] MEDS: MAGNESIUM SULFATE 50 IV (13:10)
[2024-11-26] MEDS: KCL 100 IV ×2 (13:14→19:26)
[2024-11-26] MEDS: DULCOLAX 10 MG PO (13:25)
[2024-11-26] MEDS: LIPITOR 40 MG PO (16:55)
--- NOTE | 2024-11-26 16:58 | W.PN.CD ---
Today's Communication / Plan
-
continue bumex gtt
continue to attempt to wean vasopressors, hopefully will be better when closer to euvolemic
Impression / Plan
-
Severe :
-s/p L transfemoral TAVR Sabrina S3 ultra 29mm on 11/24/24
Acute on chronic HFrEF:
-Admitted 11/23/24 with cardiogenic shock, required diuresis. wt down at least 6kg
-con't to require pressors, 2 of Db 2 of levophed
-con't wean
-started on bumex gtt, good output so far, will continue
-pt notes he had loss of taste/bad taste with farxiga pre hospital stay. Hold it preprocedure and symptom improved. He also thought he had red and swollen feet r/t that as well.
-Won't tolerate GDMT but will reassess as he improves.
- Echo 11/24/24 EF 15-20, TAVR P/M 7/3mmhg
PAF:
- Eliquis restarted
-h/o JOE thrombus
Subjective:
he is feeling well, no cp, breathing is improving. OOB to chair currently
TTE: CONCLUSIONS
Severely reduced left ventricular systolic function.
Left ventricular ejection fraction is 15% by Velásquez's method of discs.
Flattened septum in systole and diastole consistent with RV pressure and volume
overload.
Normal right ventricular size and function.
S/p Sabrina 29 TAVR with peak/mean gradients of 11/6 mmHg. Trace paravalvular
aortic regurgitation.
No significant change since the prior study of 11/24/24.
CCT 30 minutes in his care.
Physical Exam
Vital Signs/Labs
Vital Signs
Temp Pulse Resp BP Pulse Ox
98.7 F 103 18 92/65 96
11/26/24 16:56 11/26/24 16:45 11/26/24 16:56 11/26/24 16:00 11/26/24 16:01
11/25/24 11/26/24 11/27/24
06:59 06:59 06:59
Actual Weight 78.4 kg 82.9 kg
11/26/24 03:16
PT 18.4 Sec (11.4-14.6) H 11/25/24 03:10
INR 1.51 11/25/24 03:10
APTT 101.9 Sec (23.4-35.0) H 11/23/24 23:12
Magnesium 1.7 mg/dl (1.6-2.3) 11/26/24 12:07
11/15/24
08:37
Yrg-H-Vkycosjbzzl Pept [id number]
Physical Exam
Constitutional: No acute distress and Comfortable
Cardiovascular: Rhythm/rate is irregular, Pedal edema present, JVD present and Systolic murmur present
Respiratory: Respiratory effort normal and Crackles Present (bibasilar)
Neuro/Psych: AO x 3
Data Reviewed
-
Date of Service: November 26, 2024
Medical Decision Making: Review of Case with other Provider (CTPA and CVICU nursing---on bumex will continue)
[2024-11-26 18:10] LABS: Blood Urea Nitrogen 28 mg/dl (9-20); Calcium 7.9 mg/dl (8.4-10.2); Carbon Dioxide 26 mmol/L (22-30); Chloride 91 mmol/L (98-107); Estimated Creatinine Clearance 73 ml/min; Glucose 147 mg/dl (70-99); Potassium 3.4 mmol/L (3.5-5.1); Sodium 128 mmol/L (135-145); eGFR > 60.00
--- NOTE | 2024-11-26 20:00 | PTCARENOTE ---
Receive pt from dayshift. pt resting comfortably in bed. pt is AAOx4, denies pain. Afib on monitor, VSS. heart sounds audible, radial pulses palpable, DP pulses audible with doppler, +1 CARLEY. lungs diminished throughout, spo2 98% on RA. + BS x4
quadrants, abdomen soft non tender. pt voiding clear yellow urine via marcelo catheter. surgical sites maintained. left radial A-line, right IJ cordis/swan @ 49cm, and PIV, all maintained, leveled, and zeroed. Bumex, dobutamine, and Levophed infusing.
IVBP potassium ordered. call pierre within reach. will continue to monitor.
[2024-11-26 21:15] LABS: Ionized Calcium 0.97 mMOL/L (1.15-1.33)
[2024-11-26 21:52] LABS: Blood Urea Nitrogen 30 mg/dl (9-20); Calcium 7.9 mg/dl (8.4-10.2); Carbon Dioxide 27 mmol/L (22-30); Chloride 90 mmol/L (98-107); Estimated Creatinine Clearance 82 ml/min; Glucose 105 mg/dl (70-99); Magnesium 1.9 mg/dl (1.6-2.3); Potassium 3.8 mmol/L (3.5-5.1); Sodium 128 mmol/L (135-145); eGFR > 60.00
[2024-11-26] MEDS: CALCIUM GLUCONATE 290 MG IV (22:37)
[2024-11-27] VITALS (30 sets, daily range): BP systolic 77–122; BP diastolic 49–87; PULSE 86; O2SAT 97; BMI 26.6
--- NOTE | 2024-11-27 | PTCARENOTE ---
pt assessment unchanged. Afib on monitor. VSS. pt resting comfortably in bed. 2LNC while sleeping. labs drawn, calcium repeated, see MAR. call pierre within reach. will continue to monitor.
[2024-11-27] MEDS: LEVOPHED 250 IV (01:00)
--- NOTE | 2024-11-27 03:51 | W.PN.CT ---
Today's Communication / Plan
-
Plan:
-No major issues overnight. Hemodynamically and neurologically intact
-On Dobutamine gtt @ 2, Levophed weaned from 3 to off overnight. On Bumex gtt from 9AM-9PM yesterday 11/26
-Currently in rate controlled a-fib @ 70-90's
-Last CI 2.08, MVO2 65.8%
-Maintain marcelo while on dobutamine for accurate I/O's. 24hrs u/o 6250 mL
-Wean off dobutamine as cardiac index permits
-Groin C/D/I without hematoma
-Repeat echo on 11/24 showed a well seated TAVR with PG/MG 7/3 mmHg, trace AI, EF 15-20%
-Resumed Eliquis on 11/25
-Cont. current meds (ASA, Lipitor, dobutamine, Levophed, Eliquis. Holding Amiodarone and BB while on dobutamine and requiring Levophed)
-OOB into chair
-Consider diuresis again today
-Replete electrolytes
Assessment / Plan
-
Assessment:
S/p L TF TAVR w/ placement of 29mm KIMBERLY 3 valve, by Dr Hung/Luis, on 11/24/24, pod#3
-Severe aortic stenosis (P/M: 41/23, WICHO 0.5, DVI 0.2).
-Zeit-fz-jcoxqytk aortic insufficiency
-Mild mitral regurgitation
-Moderate tricuspid regurgitation
-Reduced left ventricular ejection fraction 15%-20%
-Systolic and diastolic CHF
-Inotrope-dependant zoqnq-sj-rrzivut combined systolic and diastolic cardiogenic shock
-Moderate pulmonary hypertension (PA 74/43) with pulmonary capillary wedge pressure 35 mmHg
-Left ventricular end diastolic pressure remains at 35 mmHg.
-3V CAD
-HTN
-HLD
-DJD
-MRSA+ (nasal swab), 11/15/24
-Recent PNA, 09/03
-Prediabetes (hgb A1C 6.1)
-Elevated LFTs, likely d/t shock liver
-KATE, likely prerenal
-Hyponatremia
-Glaucoma
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
-A fib S/P multiple cardioversions (on Eliquis at home)
-Pleural effusion S/P R thoracentesis with evacuation of 1L fluid
-S/P bilateral THR
-S/P bilateral cataracts
-Acute postop blood loss/anemia (stable)
-Acute postop thrombocytopenia (stable)
Discussed patient care with: Cardiology, Nursing, Respiratory Therapy, Pharmacy and Care Team
Subjective
Procedure
S/p L TF TAVR w/ placement of 29mm KIMBERLY 3 valve, by Dr Hung/Luis, on 11/24/24
-
Date of Service: November 27, 2024
Pt c/o mild incisional pain, otherwise feels well
Objective Data
-
PT 18.4 Sec (11.4-14.6) H 11/25/24 03:10
INR 1.51 11/25/24 03:10
APTT 101.9 Sec (23.4-35.0) H 11/23/24 23:12
Vital Signs
Vital Signs
Temp Pulse Resp BP Pulse Ox
98.5 F 93 16 111/69 98
11/27/24 03:00 11/27/24 03:30 11/27/24 03:00 11/27/24 03:00 11/27/24 03:00
CT Intake/Output/Weight
11/26/24 11/26/24 11/27/24
06:59 18:59 06:59
Intake Total 674.4 / 1700.5 620.3 / 904.2 283.9 / 904.2
Output Total 460 / 1135 3530 / 6155 1255 / 6155
Balance 214.4 / 565.5 -2909.7 / -5250.8 -2341.1 / -5250.8
SaO2: 98 (2L)
Physical Exam
-
General: Awake, Oriented and AOx3
Cardiovascular: Irregular rate & rhythm, No Murmurs, No Rub and No Gallop
Respiratory: Decreased Breath Sounds (at bases, otherwise clear )
Sternum: Stable
Incision: Clean, Dry, Intact and Dressing Intact
Extremities: Edema +1
Data Reviewed
-
Lab Results: Results Reviewed
Medications: Active Meds Reviewed
Chest X-Ray: Report Reviewed and Image Reviewed
ECG: Report Reviewed and Image Reviewed
[2024-11-27 04:00] LABS: Ionized Calcium 1.13 mMOL/L (1.15-1.33)
--- NOTE | 2024-11-27 04:00 | PTCARENOTE ---
Pt assessment unchanged. Afib on monitor. VSS. Labs drawn and sent. CHG bath provided with new tele leads and gown. marcelo care provided. call pierre within reach.will continue to monitor.
[2024-11-27 04:02] LABS: Mixed Venous O2 Saturation 65.8 %
[2024-11-27 04:03] LABS: Hematocrit 37.1 % (39.0-52.0); Hemoglobin 12.1 g/dL (13.0-18.0); Mean Corp Hgb Conc. 32.6 g/dL (33.0-37.0); Mean Corpuscular Hgb 26.6 pg (27.0-31.0); Mean Corpuscular Volume 81.5 fL (80.0-94.0); Mean Platelet Volume 9.3 fL (7.4-10.4); Platelet Count 93 10^3/uL (130-400); Red Blood Cell Count 4.55 10^6/uL (4.70-6.10); Red Cell Dist. Width 16.6 % (11.5-14.5); White Blood Cell Count 5.8 10^3/uL (4.8-10.8)
[2024-11-27 04:23] LABS: Blood Urea Nitrogen 29 mg/dl (9-20); Calcium 8.3 mg/dl (8.4-10.2); Carbon Dioxide 29 mmol/L (22-30); Chloride 92 mmol/L (98-107); Estimated Creatinine Clearance 82 ml/min; Glucose 93 mg/dl (70-99); Lactic Acid 0.9 mmol/L (0.7-2.0); Magnesium 1.9 mg/dl (1.6-2.3); Potassium 3.7 mmol/L (3.5-5.1); Sodium 128 mmol/L (135-145); eGFR > 60.00
[2024-11-27] MEDS: KCL 40 MEQ PO ×2 (05:02→15:04)
[2024-11-27] MEDS: CALCIUM CHLORIDE 10% SYRINGE 60 MG IV ×2 (05:15→20:13)
--- NOTE | 2024-11-27 08:15 | PTCARENOTE ---
Pt reassessed. Pt assessed while he was sitting in the chair. Pt alert and oriented x4. Pt denies pain, shortness of breath, and nausea. YAO with equal strength throughout. No facial droop or tongue deviation. PERRLA 3mm brisk. Afib with LBBB on
tele with rates 90s-100s. Heart tones audible. BP 111/72. PA pressures 40s/20s. CVP 8. CI 2.3. Bilateral radial and DP pulses palpable. No edema noted. POX 97% on RA. Lungs diminished in the bases. IS encouraged-2000mL achieved. Abdomen soft, round,
nontender. +BS. Burgess draining adequate amounts of mala urine. B/l groins soft, dressing CDI. Left radial garcia with appropriate waveform. Right IJ cordis intact with swan floated to 49cm. All lines flushed, leveled, and zeroed. Left AC 20g and
Left wrist 20g PIV intact. Dobutamine infusing at 2mcg/kg/min, Levo titrated off, Bumex infusing at 1mg/hr. See MAR for medication administration. See worklist for complete nursing assessment. Plan of care reviewed and patient in agreement.
[2024-11-27 08:16] LABS: Mixed Venous O2 Saturation 65.4 %
[2024-11-27] MEDS: COSOPT EYE DROPS 1 DROP BOTH EYES ×2 (08:18→20:48)
[2024-11-27] MEDS: MAGNESIUM OXIDE 500 MG PO (08:18)
[2024-11-27] MEDS: ELIQUIS 5 MG PO ×2 (08:18→20:48)
[2024-11-27] MEDS: ASPIR LOW (ENTERIC COATED) 81 MG PO (08:18)
[2024-11-27] MEDS: BUMEX 50 IV (08:18)
[2024-11-27] MEDS: DULCOLAX 10 MG PO (08:22)
--- NOTE | 2024-11-27 09:01 | W.PN.CD ---
Today's Communication / Plan
-
Wean dobutamine to off.
When dobutamine has been off, we can consider restarting metoprolol succinate 12.5 mg daily.
Continue bumetanide gtt for the rest of today and re-evaluate tomorrow.
Impression / Plan
-
Impression/Plan: 69 y/o male with HTN, HLD, hx of cerebellar CVA, PAF, severe , severe ICMO with chronic HFrEF admitted for elective TAVR, found to be in decompensated cardiogenic shock treated with inotropes and urgent TAVR.
#Severe
-Chronic, progressive
-s/p #29 Ryan SABRINA S3 Ultra TAVR via left transfemoral approach, 11/24/24.
-Access sites are C/D/I.
-Telemetry is unremarkable.
-Antithrombotic therapy with therapeutic anticoagulation (apixaban 5 mg BID).
#ICMO/Acute on chronic HFrEF/cardiogenic shock
-Acute on chronic.
-Current gtts:
-Dobutamine @ 2 mcg/kg/min
-Bumetanide @ 1 mg/hour.
-Norepinephrine @ 2 mcg/kg/min.
-CI = 2.3 L/min/m2.
-PAd = 18-20 mmHg (probably appropriate given level of LV dysfunction).
-[place]-Ysabel catheter discontinued.
-Wean dobutamine to off.
-When dobutamine is off, we will consider restarting low dose metoprolol succinate (12.5 mg daily).
-Maintain bumetanide gtt for the rest of today and re-evaluate tomorrow.
-Restart SGLT2i at discharge (empagliflozin - he is no longer interested in dapagliflozin).
-No role for ACEI/ARB/ARNi/MRA given labile BP.
-There may be a role for Life-Vest prior to discharge in anticipation of primary prevention ICD/PEOPLES[employer] CRM DEVELOPER-D.
#PAF:
-Currently in rate controlled AF.
-h/o JOE thrombus.
-Rate/rhythm control with metoprolol succinate and amiodarone.
-CHADS2-Vasc = 6 (CHF, HTN, Age x1, CVA x2, vascular disease).
-Therapeutic anticoagulation with apixaban 5 mg BID.
#CAD
-Chronic, stable. No angina.
-Continue secondary prevention with aspirin, atorvastatin.
-Metoprolol on hold due to BP.
Critical Care Time = 42 minutes.
Subjective/Interval History:
Norepinephrine weaned off then restarted.
Remains in rate controlled AF.
Weight down 5.1 kg (84.5 --> 79.4).
Labile BP, 82-110/49-77.
SaO2 = 97% on RA.
DATA:
TTE, 12/04/2024:
CONCLUSIONS
Severely reduced left ventricular systolic function.
Left ventricular ejection fraction is 15% by Velásquez's method of discs.
Flattened septum in systole and diastole consistent with RV pressure and volume
overload.
Normal right ventricular size and function.
S/p Sabrina 29 TAVR with peak/mean gradients of 11/6 mmHg. Trace paravalvular
aortic regurgitation.
No significant change since the prior study of 11/24/24.
TAVR, 11/24/2024:
CONCLUSIONS
1. Successful placement of a Ryan Sabrina S3 Ultra 29 mm transcatheter aortic valve via left transfemoral approach with no acute complications.
2. Acute on chronic heart failure with elevated filling pressures (LVEDP = 35).
Right Heart Catheterization, 11/23/2024:
CONCLUSION:
1. Severely elevated filling pressures (PCWP = 35 mmHg at 81.6 kg).
2. Severely depressed cardiac function on dobutamine (cardiac index 1.95 L/min/m� by Sujye, 1.74 L/min/m� by thermodilution), consistent with cardiogenic shock.
3. 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
Coronary angiography, 10/12/2024:
CORONARY ANGIOGRAPHY
Dominance: right
LM: large with mild disease
LAD: large vessel giving rise a moderate caliber D1, large branching D2, and multiple septal perforators. There is a focal 50% stenosis in the proximal aspect of D1. The D2 has eccentric, focal, moderate-severe stenoses proximal to the bifurcation
as well as in the proximal aspects of both limbs. The LAD proper has mild calcific disease proximally, a 50% stenosis just after D2, and a 40% stenosis in the mid-distal vessel.
LCx: Large vessel giving rise to three small-moderate caliber OM branches. There is a 90% stenosis in the proximal vessel. OM 2 is subtotaled proximally. OM3 provides collaterals to the distal RCA.
RCA: Severely diseased through the proximal to mid section with a total occlusion distally. The large RPDA and a large RPL branch are supplied by raif-co-wcvix collaterals.
Physical Exam
Vital Signs/Labs
Vital Signs
Temp Pulse Resp BP Pulse Ox
37.0 C 112 18 111/72 99
11/27/24 08:00 11/27/24 08:30 11/27/24 08:00 11/27/24 08:19 11/27/24 08:30
11/25/24 11/26/24 11/27/24
11:59 11:59 11:59
Actual Weight 78.4 kg 82.9 kg 79.4 kg
11/27/24 03:46
PT 18.4 Sec (11.4-14.6) H 11/25/24 03:10
INR 1.51 11/25/24 03:10
APTT 101.9 Sec (23.4-35.0) H 11/23/24 23:12
Magnesium 1.9 mg/dl (1.6-2.3) 11/27/24 03:46
11/15/24
08:37
Gfd-W-Ctslzmxwums Pept [id number]
Physical Exam
Constitutional: No acute distress and Comfortable
EENT: Anicteric and Moist mucous membranes
Cardiovascular: JVD pressure is normal, Rhythm/rate is irregular, Pedal edema present, S1S2 is normal and Murmur/rub/gallop absent
Respiratory: Respiratory effort normal, Wheeze Absent, Rhonchi Absent and Crackles Present (Mild, bilateral bases.)
GI: Soft, Distention absent, Flat, Non tender and Normal bowel sounds
Neuro/Psych: AO x 3
Other: Cath Site (Bilateral femoral access sites are C/D/I.)
Data Reviewed
-
Date of Service: November 27, 2024
Medical Decision Making: Reviewed Test Results, Independent Historian Assessment, Test Interpretation and Review of Case with other Provider
EKG: Tracing Personally Visualized and interpreted and Report Reviewed by me
Echo: Report Reviewed by me
X-Ray/CT/US/MRI/NUC/PET: Image Personally Visualized and interpreted and Report Reviewed by me
Medical Tests (PFT, Pathology etc): Image Personally Visualized and interpreted and Report Reviewed by me
Labs: Labs Reviewed by me
Old Records: Reviewed
--- NOTE | 2024-11-27 10:00 | PTCARENOTE ---
Right IJ swan d/c per orders. New [place] pressure bag & transducer set up and applied.
[2024-11-27] MEDS: FLOMAX 0.4 MG PO (11:07)
--- NOTE | 2024-11-27 12:00 | PTCARENOTE ---
Pt reassessed. Afib with LBBB and PVCs on tele with rates in the 80s. BP supported with levo @2, Dobut @2, Bumex @1. POX 96% on RA. B/l groin stable, dressing removed. Right IJ cordis, Left radial garcia, Left wrist PIV, Left AC PIV intact. Burgess
draining large amounts of clear yellow urine. Ambulated in white with 2 assist and RW, pt tolerated well.
--- NOTE | 2024-11-27 12:25 | CM ---
Reviewed chart. Met with Mr. Gillespie to review discharge plans. He states he is feeling well. He states prior to admission he resides with his spouse in a two story home with one step to enter. He states he has a full bathroom on each floor. He
states he has a full flight of steps to get to bedroom. He states he can stay on the first floor if needed. He states prior to admission he was independent with ambulation and adls. He states he has a single point cane and walker at home. He
states his spouse works outside the home two days a week. He states his brother in-law resides nearby and can provide assistance if needed. We reviewed a home visit by the [facility] Care Nurse. He is agreeable to a home visit. He states he has
a prescription plan and uses [facility]. Medical work-up in progress. The discharge plan is to return home with his spouse and a home visit by the Transitional Care Nurse when medically stable.
[2024-11-27 13:56] LABS: Blood Urea Nitrogen 26 mg/dl (9-20); Calcium 8.7 mg/dl (8.4-10.2); Carbon Dioxide 30 mmol/L (22-30); Chloride 90 mmol/L (98-107); Estimated Creatinine Clearance 82 ml/min; Glucose 106 mg/dl (70-99); Magnesium 1.8 mg/dl (1.6-2.3); Potassium 3.7 mmol/L (3.5-5.1); Sodium 129 mmol/L (135-145); eGFR > 60.00
[2024-11-27] MEDS: MAGNESIUM SULFATE 50 IV (15:04)
--- NOTE | 2024-11-27 16:00 | PTCARENOTE ---
Pt reassessed. Pt resting in the chair. Ambulated in the white with 2 assist and RW, pt tolerated. Afib with LBBB and PVCs on tele. BP supported with levo @3. Dobut decreased to [address] TECHNICAL TRANSLATOR. POX 98% on RA. Pt tolerating food. No acute changes.
[2024-11-27] MEDS: LIPITOR 40 MG PO (18:03)
[2024-11-27 18:46] LABS: Blood Urea Nitrogen 27 mg/dl (9-20); Calcium 7.8 mg/dl (8.4-10.2); Carbon Dioxide 30 mmol/L (22-30); Chloride 90 mmol/L (98-107); Estimated Creatinine Clearance 82 ml/min; Glucose 133 mg/dl (70-99); Magnesium 2.4 mg/dl (1.6-2.3); Potassium 3.7 mmol/L (3.5-5.1); Sodium 126 mmol/L (135-145); eGFR > 60.00
[2024-11-27 19:42] LABS: ALT (SGPT) 90 U/L (0-50); AST (SGOT) 50 U/L (17-59); Albumin 3.1 g/dl (3.5-5.0); Alkaline Phosphatase 129 U/L (38-126); Direct Bilirubin 0.5 mg/dl (0.0-0.4); Total Bilirubin 1.7 mg/dl (0.2-1.3); Total Protein 5.5 g/dl (6.3-8.2)
--- NOTE | 2024-11-27 20:00 | PTCARENOTE ---
assumed care of pt from previous RN. pt A&Ox4, resting in chair at time of assessment. no c/o pain at this time. A fib w/ LBBB and occasional PVCs on tele-monitor. POX 94-96% on RA. abd s/n, +BS. marcelo catheter draining yellow colored urine w/ some
sediment. all surgical sites stable, CDI. R IJ cordis. L radial a-line- leveled, zeroed, flushed. PIV x2 intact. see worklist for complete nursing assessment, interventions, gtts, VS, and I&Os.
[2024-11-27] MEDS: BUMEX 2 MG IV (20:47)
[2024-11-27] MEDS: SAMSCA 15 MG PO (20:48)
[2024-11-27] MEDS: MAGNESIUM OXIDE PO (21:02)
[2024-11-27 21:12] LABS: Osmolality Urine 424 mOsm/kg (300-900)
[2024-11-27 21:29] LABS: Urine Potassium 53.9 mmol/L (30-90); Urine Sodium 20 mmol/L (30-90)
[2024-11-27 21:34] LABS: Microalbumin, Random Urine 6.4 mg/dl (0.6-1.7); Microalbumin/creatinine Ratio 105.4 mg/g
[2024-11-28] VITALS (35 sets, daily range): BP systolic 79–119; BP diastolic 54–87; PULSE 74; O2SAT 94–98; BMI 25.9
--- NOTE | 2024-11-28 00:45 | PTCARENOTE ---
assessment remains unchanged. remains on levophed and dobutamine. labs drawn and sent. pt assisted to BSC. no BM at this time.
[2024-11-28 00:53] LABS: Ionized Calcium 1.13 mMOL/L (1.15-1.33)
[2024-11-28 01:20] LABS: Blood Urea Nitrogen 32 mg/dl (9-20); Calcium 8.8 mg/dl (8.4-10.2); Carbon Dioxide 30 mmol/L (22-30); Chloride 92 mmol/L (98-107); Estimated Creatinine Clearance 82 ml/min; Glucose 107 mg/dl (70-99); Magnesium 2.2 mg/dl (1.6-2.3); Sodium 130 mmol/L (135-145); eGFR > 60.00
[2024-11-28] MEDS: CALCIUM CHLORIDE 10% SYRINGE 60 MG IV (03:11)
[2024-11-28] MEDS: DOBUTREX 290 MG IV (03:11)
--- NOTE | 2024-11-28 04:15 | PTCARENOTE ---
no acute changes. AM labs collected and sent.
[2024-11-28] MEDS: KCL 20 MEQ PO (04:18)
--- NOTE | 2024-11-28 04:22 | W.PN.CT ---
Today's Communication / Plan
-
Plan:
-No major issues overnight. Hemodynamically and neurologically intact
-On Dobutamine gtt @ 1, Levophed @ 3. Was on Bumex gtt from 9AM-9PM yesterday 11/27
-Currently in rate controlled a-fib @ 70-90's
-[place] discontinued yesterday 11/27, MVO2 off cordis 68.8%
-Maintain marcelo while on dobutamine and Bumex gtt for accurate I/O's. 24hrs u/o 7015 mL
-Wean off dobutamine as tolerated
-Groin C/D/I without hematoma
-Repeat echo on 11/24 showed a well seated TAVR with PG/MG 7/3 mmHg, trace AI, EF 15-20%
-Resumed Eliquis on 11/25
-Monitor thrombocytopenia, 134->96->93->96 today (noted to be on the decline following resumption of Eliquis)
-Monitor elevated LFTs, all but AST is normal
-Cont. current meds (ASA, Lipitor, dobutamine, Levophed, Eliquis. Holding Amiodarone and BB while on dobutamine and requiring Levophed)
-OOB into chair
-Consider diuresis again today
-Replete electrolytes
-Nephrology to assess hyponatremia and administration of Samsca, got 15mg last night, hyponatremia improved from 130 to 134
Assessment / Plan
-
Assessment:
S/p L TF TAVR w/ placement of 29mm KIMBERLY 3 valve, by Dr Hung/Luis, on 11/24/24, pod#4
-Severe aortic stenosis (P/M: 41/23, WICHO 0.5, DVI 0.2).
-Bzwb-dd-lqczysow aortic insufficiency
-Mild mitral regurgitation
-Moderate tricuspid regurgitation
-Reduced left ventricular ejection fraction 15%-20%
-Systolic and diastolic CHF
-Inotrope-dependant rimhd-tq-owbezvt combined systolic and diastolic cardiogenic shock
-Moderate pulmonary hypertension (PA 74/43) with pulmonary capillary wedge pressure 35 mmHg
-Left ventricular end diastolic pressure remains at 35 mmHg.
-3V CAD
-HTN
-HLD
-DJD
-MRSA+ (nasal swab), 11/15/24
-Recent PNA, 09/03
-Prediabetes (hgb A1C 6.1)
-Elevated LFTs, likely d/t shock liver
-KATE, likely prerenal
-Hyponatremia
-Glaucoma
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
-A fib S/P multiple cardioversions (on Eliquis at home)
-Pleural effusion S/P R thoracentesis with evacuation of 1L fluid
-S/P bilateral THR
-S/P bilateral cataracts
-Acute postop blood loss/anemia (stable)
-Acute postop thrombocytopenia (stable)
Discussed patient care with: Cardiology, Nursing, Respiratory Therapy, Pharmacy and Care Team
Subjective
Procedure
S/p L TF TAVR w/ placement of 29mm KIMBERLY 3 valve, by Dr Hung/Luis, on 11/24/24
-
Date of Service: November 28, 2024
Pt c/o mild incisional pain, otherwise feels well
Objective Data
-
Lab Results
11/28/24 23:59
PT 18.4 Sec (11.4-14.6) H 11/25/24 03:10
INR 1.51 11/25/24 03:10
APTT 101.9 Sec (23.4-35.0) H 11/23/24 23:12
Vital Signs
Vital Signs
Temp Pulse Resp BP Pulse Ox
98.9 F 70 16 103/77 97
11/28/24 00:00 11/28/24 03:15 11/28/24 00:00 11/28/24 03:00 11/28/24 01:45
CT Intake/Output/Weight
11/27/24 11/27/24 11/28/24
06:59 18:59 06:59
Intake Total 344.6 / 983.5 592.4 / 828.8 236.4 / 828.8
Output Total 2775 / 6350 3500 / 6605 3105 / 6605
Balance -2430.4 / -5366.5 -2907.6 / -5776.2 -2868.6 / -5776.2
SaO2: 97 (RA)
Physical Exam
-
General: Awake, Oriented and AOx3
Cardiovascular: Irregular rate & rhythm, No Murmurs and No Gallop
Respiratory: Decreased Breath Sounds (at bases, otherwise clear )
Incision: Clean, Dry, Intact and Dressing Intact
Extremities: Edema +2
Data Reviewed
-
Lab Results: Results Reviewed
Medications: Active Meds Reviewed
Chest X-Ray: Report Reviewed and Image Reviewed
ECG: Report Reviewed and Image Reviewed
[2024-11-28] MEDS: LEVOPHED 250 IV (04:23)
[2024-11-28 04:25] LABS: Mixed Venous O2 Saturation 68.8 %
[2024-11-28 04:30] LABS: Ionized Calcium 1.31 mMOL/L (1.15-1.33)
[2024-11-28 04:36] LABS: Hematocrit 38.9 % (39.0-52.0); Hemoglobin 12.9 g/dL (13.0-18.0); Mean Corp Hgb Conc. 33.2 g/dL (33.0-37.0); Mean Corpuscular Hgb 26.9 pg (27.0-31.0); Platelet Count 96 10^3/uL (130-400); Red Cell Dist. Width 16.4 % (11.5-14.5); White Blood Cell Count 5.1 10^3/uL (4.8-10.8)
[2024-11-28 04:56] LABS: Lactic Acid 0.8 mmol/L (0.7-2.0)
[2024-11-28 05:01] LABS: ALT (SGPT) 93 U/L (0-50); AST (SGOT) 51 U/L (17-59); Albumin 3.3 g/dl (3.5-5.0); Alkaline Phosphatase 139 U/L (38-126); Blood Urea Nitrogen 29 mg/dl (9-20); Calcium 9.7 mg/dl (8.4-10.2); Carbon Dioxide 32 mmol/L (22-30); Chloride 94 mmol/L (98-107); Direct Bilirubin 0.5 mg/dl (0.0-0.4); Estimated Creatinine Clearance 82 ml/min; Glucose 104 mg/dl (70-99); Magnesium 2.3 mg/dl (1.6-2.3); Potassium 3.4 mmol/L (3.5-5.1); Sodium 134 mmol/L (135-145); Total Bilirubin 2.3 mg/dl (0.2-1.3); Total Protein 5.8 g/dl (6.3-8.2); eGFR > 60.00
[2024-11-28] MEDS: KCL 40 MEQ PO ×3 (06:02→20:00)
--- NOTE | 2024-11-28 07:55 | PTCARENOTE ---
Received pt from overnight cashier RN; pt AAOx3 and sitting in chair this am; A-fib on monitor and VSS; RIJ Cordis, Left A-line and PIV x2 patent; A-line leveled and zeroed; Levo and Dobutamine infusing see flow sheet for details; Lungs diminished; IS to
2000; positive bowel sounds; Burgess catheter draining yellow urine; palpable pulses throughout; trace lower extremity edema noted; B/L groin sites C/D/I; see nursing documentation for further details.
[2024-11-28] MEDS: ELIQUIS 5 MG PO ×2 (07:57→20:00)
[2024-11-28] MEDS: ASPIR LOW (ENTERIC COATED) 81 MG PO (07:57)
[2024-11-28] MEDS: COSOPT EYE DROPS 1 DROP BOTH EYES ×2 (07:57→20:00)
[2024-11-28] MEDS: BUMEX 50 IV (08:38)
[2024-11-28 08:49] LABS: Blood Urea Nitrogen 27 mg/dl (9-20); Carbon Dioxide 34 mmol/L (22-30); Chloride 95 mmol/L (98-107); Estimated Creatinine Clearance 82 ml/min; Glucose 84 mg/dl (70-99); Magnesium 2.2 mg/dl (1.6-2.3); Potassium 4.1 mmol/L (3.5-5.1); Sodium 134 mmol/L (135-145); eGFR > 60.00
--- NOTE | 2024-11-28 08:55 | PTCARENOTE ---
Bumex drip started per CVNP order.
[2024-11-28] MEDS: ProAmatine 5 MG PO ×2 (09:47→12:41)
--- NOTE | 2024-11-28 10:13 | W.CON.NEPH ---
Consultation
-
Date/Time Consultation Requested: 11/27/24 1900
Date/Time Consultation Performed: 11/28/24 1215
Requesting Provider: gini Ferrera CRNP
Performing Provider: Kiara Dominguez
Reason for Consultation: Hyponatremia
Medical History
-
Chief Complaint: Unresponsive
History of Present Illness:
69 y/o male with past medical history severe aortic stenosis, atrial fibrillation on Amiodarone, Eliquis, coronary artery disease on ASA, heart failure with reduced ejection fraction 10-15% on lasix,Farxiga, glaucoma, cerebellar stroke, hypertension
on ARB, hyperlipidemia, osteoarthritis presented for a TAVR but on 11/23 pre-op he was noted to be unresponsive with a left gaze and urinary incontinence, felt to have SZ. Saw neurology and had normal EEG, no AED were needed. He subsequently
underwent RHC which showed low CI and Elevated wedge pressure of 35-started on aggressive diuretics and dobutamine. he underwent TAVR successfully on 11/24. Postoperatively his echocardiogram shows unchanged EF of 15% still ongoing volume overload
and well-seated valve with trace paravalvular Aortic regurgitation. He remains on dobutamine, Bumex drip. Also on norepinephrine for blood pressure support. Throughout the admission his sodium was low initially at 125 however improved to 131 on
16 with ongoing diuresis was decreased down again to 126 last evening hence nephrology was consulted. He received Samsca overnight with improvement of sodium to 134 this morning. His creatinine was also elevated peaked at 2 on admission now
improved to 0.8. he offers no cp or sob. Edema improved. No dizziness. Has been working with PT.
Past Medical History
Hypertension. Hyperlipidemia. Cerebellar stroke. Glaucoma. CAD. CHF reduced EF 10-15%. Atrial fibrillation. Severe aortic stenosis, s/p TAVR. Cataract. Bilateral total knee replacement
Social History
Tobacco: Smoker (occasional cigar)
Alcohol: Occasional
Drug: None
Living: With Family
Family History
Family History: Not Pertinent
Allergies / Home Medications
Allergy/AdvReac Type Severity Reaction Status Date / Time
Penicillins Allergy Unknown- Verified 11/15/24 11:08
TOLD
YOUNG CHILD
�Medication �Instructions �Recorded �Confirmed �Type
amiodarone 200 mg tablet 200 mg PO DAILY AFIB 10/12/24 11/23/24 History
apixaban 5 mg tablet (Eliquis) 5 mg PO BID Blood Clot 10/12/24 11/23/24 History
Prevention/Tx
aspirin 81 mg tablet,delayed 81 mg PO DAILY Blood Clot 10/12/24 11/23/24 History
release Prevention/Tx
atorvastatin 40 mg tablet 40 mg PO QPM High Cholesterol 10/12/24 11/23/24 History
metoprolol succinate 25 mg 12.5 mg PO BID Blood Pressure 10/12/24 11/23/24 History
tablet,extended release 24 hr
valsartan 40 mg tablet 40 mg PO DAILY Blood Pressure 10/12/24 11/23/24 History
dapagliflozin propanediol 10 mg 10 mg PO DAILY Diabetes 11/13/24 11/23/24 History
tablet (Farxiga)
potassium chloride 20 mEq oral 20 meq PO DAILY Supplement 11/13/24 11/23/24 History
packet
dorzolamide 22.3 mg-timolol 6.8 1 drp BOTH EYES BID Eye Condition 11/14/24 11/23/24 History
mg/mL eye drops
furosemide 40 mg tablet 40 mg PO BID Fluid 11/24/24 11/23/24 History
Retention/Swelling
Review of Systems
-
All complete 12 point ROS have been inquired and found negative other than stated in HPI
Physical Exam
Vital Signs
Vital Signs
Temp Pulse Resp BP Pulse Ox
98 F 73 18 93/70 98
11/28/24 07:00 11/28/24 10:00 11/28/24 10:00 11/28/24 10:00 11/28/24 10:00
Lab Results
WBC 5.1 10^3/uL (4.8-10.8) 11/28/24 04:10
RBC 4.80 10^6/uL (4.70-6.10) 11/28/24 04:10
Hgb 12.9 g/dL (13.0-18.0) L 11/28/24 04:10
Hct 38.9 % (39.0-52.0) L 11/28/24 04:10
Plt Count 96 10^3/uL (130-400) L 11/28/24 04:10
Sodium Cancelled 11/28/24 23:59
Potassium Cancelled 11/28/24 23:59
Chloride Cancelled 11/28/24 23:59
Carbon Dioxide Cancelled 11/28/24 23:59
BUN Cancelled 11/28/24 23:59
Creatinine Cancelled 11/28/24 23:59
eGFR Cancelled 11/28/24 23:59
Glucose Cancelled 11/28/24 23:59
Calcium Cancelled 11/28/24 23:59
Pin-K-Sjdblvdsbbj Pept 58263 pg/ml 11/15/24 08:37
Albumin 3.3 g/dl (3.5-5.0) L 11/28/24 04:10
CXR:
IMPRESSION: Improved mild right infrahilar opacification concerning for pneumonia.
Tiny right pleural effusion. Stable. Pleural thickening not excluded.
Mild cardiomegaly.
echo 11/25:
CONCLUSIONS
Severely reduced left ventricular systolic function.
Left ventricular ejection fraction is 15% by Velásquez's method of discs.
Flattened septum in systole and diastole consistent with RV pressure and volume
overload.
Normal right ventricular size and function.
S/p Sabrina 29 TAVR with peak/mean gradients of 11/6 mmHg. Trace paravalvular
aortic regurgitation.
No significant change since the prior study of 11/24/24.
Physical Exam
General: Awake, Alert, Oriented, AOx3, No Distress and Nontoxic
HEENT: EOMI, Anicteric and Facial Symmetry
Respiratory: Normal Excursion, Nonlabored Respirations and Other (decreased BS bilat)
Cardiac: S1/S2 and Regular Rate/Rhythm
Breast: Deferred by me
Abdomen: Soft, Nontender and Nondistended
Musculoskeletal: No Edema
Skin: No Rash and Warm
Neuro: Nonfocal/Grossly Intact
Psych: Mood/afflect pleasant, Insight/judgement good and Appropriate
Data Reviewed
-
Labs: Labs Reviewed by me, Discussed with Nurse and Discussed with Patient
Assessment/Plan
-
IMP:
Severe s/p TAVR 11/24
ICMO
Acute on chronic HFrEF
cardiogenic shock
Hyponatremia
PAF
CAD
HLD
DJD
Prediabetes (hgb A1C 6.1)
Elevated LFTs, likely d/t shock liver
KATE -resolved
Glaucoma
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
Pleural effusion S/P R thoracentesis with evacuation of 1L fluid 11/15/24
plan:
A/w possible SZ during pre op, s/p TAVR on 11/24
Hyponatremia-high ADH state, U osmo 424, U na low 20 with cardiorenal and hypervolemia
sodium improved with samsca upto 134, no samsca today
sig diuresis and wt loss of appx 5kg since admit
monitor met alkalosis
bumex gtt per primary-could start wean soon
monitor met alkalosis
titrate pressors to keep MPA>65, started midodrine today
dobutamine gtt off per cards
follow labs
maintain FR 48 ounces/day
d/w pt and nursing
--- NOTE | 2024-11-28 11:45 | CM ---
Reviewed chart. Met with Mr. Gillespie. He states he is feeling well. He states he ambulated in the hallway today. Prior to admission he resides with his spouse in a two story home with one step to enter. He has a full fight of steps to get to hi
bedroom. He states he has a full bathroom on each level. He can stay on the first floor if needed. Prior to admission he was independent with ambulation and adls. He has a single point cane and walker at home. His spouse works two days a week
outside the home. His brother in law resides nearby and can assist in his care if needed. He has a prescription plan and uses [facility]. Medical work-up in progress. The discharge plan is to return home with his spouse and a home visit by the
Transitional Care Nurse when medically stable.
--- NOTE | 2024-11-28 12:35 | PTCARENOTE ---
A-fib on monitor and VSS; assessment unchanged; pt in chair and call pierre within reach.
[2024-11-28 13:57] LABS: Mixed Venous O2 Saturation 63.9 %
[2024-11-28 14:34] LABS: Blood Urea Nitrogen 27 mg/dl (9-20); Calcium 8.5 mg/dl (8.4-10.2); Carbon Dioxide 33 mmol/L (22-30); Chloride 95 mmol/L (98-107); Estimated Creatinine Clearance 73 ml/min; Glucose 140 mg/dl (70-99); Potassium 3.6 mmol/L (3.5-5.1); Sodium 134 mmol/L (135-145); eGFR > 60.00
--- NOTE | 2024-11-28 16:03 | PTCARENOTE ---
Assessment unchanged; A-fib on monitor and VSS; pt ambulating hallways with RN.
[2024-11-28] MEDS: LIPITOR 40 MG PO (17:03)
[2024-11-28] MEDS: ProAmatine 10 MG PO (17:03)
[2024-11-28] MEDS: AYR SALINE NASAL GEL 1 APPLIC NASAL ×2 (17:25→20:00)
--- NOTE | 2024-11-28 18:36 | W.PN.CD ---
Addendum entered and electronically signed by Lester Smith MD 11/28/24 18:45:
Would not restart amio, patient has been in persistent Afib and would prefer to leave room for metop. Will address rhythm strategy as outpatient.
Original Note:
Today's Communication / Plan
-
wean norepi off, accept MAP 60-65 and monitor end organs and mentation
transition to PO diuretic tomorrow for goal 500 negative
Impression / Plan
-
Impression/Plan: 69 y/o male with HTN, HLD, hx of cerebellar CVA, PAF, severe , severe ICMO with chronic HFrEF admitted for elective TAVR, found to be in decompensated cardiogenic shock treated with inotropes and urgent TAVR.
#Severe
-Chronic, progressive
-s/p #29 Ryan SABRINA S3 Ultra TAVR via left transfemoral approach, 11/24/24.
-Access sites are C/D/I.
-Telemetry is unremarkable.
-Antithrombotic therapy with therapeutic anticoagulation (apixaban 5 mg BID).
#ICMO/Acute on chronic HFrEF/cardiogenic shock
-Acute on chronic.
-on low dose norepi, midodrine was started to help wean, recommend turning off norepi and considering accepting MAP goal of 60 as long as end organs and mentation remain stable
-likely nearing euvolemia, transition to oral diuretic - starting with bumex 2 PO, redosed in afternoon if needed for goal negative 500
-once off norepi x12 hours, restart metop at low dose
-Restart SGLT2i at discharge (empagliflozin - he is no longer interested in dapagliflozin)
-No role for ACEI/ARB/ARNi/MRA given low BP.
-There may be a role for Life-Vest prior to discharge in anticipation of primary prevention ICD/RELAY SHOP TESTER-D, though patient has not had significant burden of NSVT
#PAF:
-Currently in rate controlled AF.
-h/o JOE thrombus.
-Rate/rhythm control with metoprolol succinate and amiodarone.
-CHADS2-Vasc = 6 (CHF, HTN, Age x1, CVA x2, vascular disease).
-Therapeutic anticoagulation with apixaban 5 mg BID.
#CAD
-Chronic, stable. No angina.
-Continue secondary prevention with aspirin, atorvastatin.
-Metoprolol on hold due to BP.
Subjective/Interval History:
Feeling well sitting up in chair
reports feeling well with ambulation
DATA:
TTE, 12/04/2024:
CONCLUSIONS
Severely reduced left ventricular systolic function.
Left ventricular ejection fraction is 15% by Velásquez's method of discs.
Flattened septum in systole and diastole consistent with RV pressure and volume
overload.
Normal right ventricular size and function.
S/p Sabrina 29 TAVR with peak/mean gradients of 11/6 mmHg. Trace paravalvular
aortic regurgitation.
No significant change since the prior study of 11/24/24.
TAVR, 11/24/2024:
CONCLUSIONS
1. Successful placement of a Ryan Sabrina S3 Ultra 29 mm transcatheter aortic valve via left transfemoral approach with no acute complications.
2. Acute on chronic heart failure with elevated filling pressures (LVEDP = 35).
Right Heart Catheterization, 11/23/2024:
CONCLUSION:
1. Severely elevated filling pressures (PCWP = 35 mmHg at 81.6 kg).
2. Severely depressed cardiac function on dobutamine (cardiac index 1.95 L/min/m� by Sujey, 1.74 L/min/m� by thermodilution), consistent with cardiogenic shock.
3. 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
Coronary angiography, 10/12/2024:
CORONARY ANGIOGRAPHY
Dominance: right
LM: large with mild disease
LAD: large vessel giving rise a moderate caliber D1, large branching D2, and multiple septal perforators. There is a focal 50% stenosis in the proximal aspect of D1. The D2 has eccentric, focal, moderate-severe stenoses proximal to the bifurcation
as well as in the proximal aspects of both limbs. The LAD proper has mild calcific disease proximally, a 50% stenosis just after D2, and a 40% stenosis in the mid-distal vessel.
LCx: Large vessel giving rise to three small-moderate caliber OM branches. There is a 90% stenosis in the proximal vessel. OM 2 is subtotaled proximally. OM3 provides collaterals to the distal RCA.
RCA: Severely diseased through the proximal to mid section with a total occlusion distally. The large RPDA and a large RPL branch are supplied by [id number]-[id number] collaterals.
Physical Exam
Vital Signs/Labs
Vital Signs
Temp Pulse Resp BP Pulse Ox
36.9 C 80 16 89/68 95
11/28/24 17:00 11/28/24 18:01 11/28/24 18:00 11/28/24 18:01 11/28/24 17:00
11/27/24 11/28/24 11/29/24
06:59 06:59 06:59
Actual Weight 79.4 kg 77.2 kg
11/28/24 04:10
11/28/24 23:59
PT 18.4 Sec (11.4-14.6) H 11/25/24 03:10
INR 1.51 11/25/24 03:10
APTT 101.9 Sec (23.4-35.0) H 11/23/24 23:12
Magnesium Cancelled 11/28/24 19:59
11/15/24
08:37
Okk-A-Rcgyrkbaeuw Pept [id number]
Physical Exam
Constitutional: No acute distress
Cardiovascular: Rhythm/rate is irregular
Respiratory: Respiratory effort normal
Neuro/Psych: AO x 3
Data Reviewed
-
Date of Service: November 28, 2024
Medical Decision Making: Reviewed Test Results
EKG: Tracing Personally Visualized and interpreted
Echo: Tracing Personally Visualized and interpreted
X-Ray/CT/US/MRI/NUC/PET: Image Personally Visualized and interpreted
Labs: Labs Reviewed by me
[2024-11-28] MEDS: CALCIUM GLUCONATE 100 IV ×2 (20:00→21:41)
--- NOTE | 2024-11-28 20:00 | PTCARENOTE ---
assumed care of pt from previous RN. pt A&Ox4, resting in chair at time of assessment. A fib w/ occasional PVCs on tele-monitor. POX 96-100% on RA. abd s/n, +BS. marcelo catheter draining clear, yellow urine. all surgical sites stable, CDI. R IJ
Cordis w/ KVO. L radial a-line- leveled, zeroed, flushed. PIVx2 intact. see worklist for complete nursing assessment, interventions, gtt titrations, VS, and I&Os.
[2024-11-29] VITALS (19 sets, daily range): BP systolic 72–112; BP diastolic 55–83; PULSE 86; O2SAT 95–97; BMI 25.5
--- NOTE | 2024-11-29 | PTCARENOTE ---
assessment remains unchanged. VSS.
--- NOTE | 2024-11-29 02:53 | DOWNTIME ---
There was a [employer] Client Subgrade Roller Operator Downtime on 11/29/2024 from 0100 to 11/29/2023 at 0235 . Downtime documentation of patient's care, including medication administrations, has been reconciled in the electronic record per guidelines. Refer to the
patient's paper chart under the miscellaneous tab to see printed paper medication records and downtime forms.
[2024-11-29 03:51] LABS: Mixed Venous O2 Saturation 59.7 %
[2024-11-29 03:56] LABS: Hematocrit 38.2 % (39.0-52.0); Hemoglobin 12.3 g/dL (13.0-18.0); Mean Corp Hgb Conc. 32.2 g/dL (33.0-37.0); Mean Corpuscular Hgb 26.6 pg (27.0-31.0); Mean Corpuscular Volume 82.5 fL (80.0-94.0); Mean Platelet Volume 10.3 fL (7.4-10.4); Platelet Count 93 10^3/uL (130-400); Red Blood Cell Count 4.63 10^6/uL (4.70-6.10); Red Cell Dist. Width 16.5 % (11.5-14.5); White Blood Cell Count 5.3 10^3/uL (4.8-10.8)
[2024-11-29 03:57] LABS: Ionized Calcium 1.19 mMOL/L (1.15-1.33)
--- NOTE | 2024-11-29 04:00 | PTCARENOTE ---
no acute changes. VSS. A fib on tele-monitor. POX 96-99% on RA.
[2024-11-29 04:03] LABS: ALT (SGPT) 89 U/L (0-50); AST (SGOT) 57 U/L (17-59); Alkaline Phosphatase 130 U/L (38-126); Blood Urea Nitrogen 29 mg/dl (9-20); Calcium 8.9 mg/dl (8.4-10.2); Carbon Dioxide 34 mmol/L (22-30); Chloride 97 mmol/L (98-107); Direct Bilirubin 0.5 mg/dl (0.0-0.4); Estimated Creatinine Clearance 82 ml/min; Glucose 88 mg/dl (70-99); Potassium 4.2 mmol/L (3.5-5.1); Sodium 135 mmol/L (135-145); Total Bilirubin 1.7 mg/dl (0.2-1.3); Total Protein 5.6 g/dl (6.3-8.2); eGFR > 60.00
[2024-11-29] MEDS: CALCIUM GLUCONATE 100 IV (04:49)
--- NOTE | 2024-11-29 05:14 | W.PN.CT ---
Today's Communication / Plan
-
Plan:
-No major issues overnight. Hemodynamically and neurologically intact
-Dobutamine and Levophed were weaned off yesterday morning. Received Bumex gtt from 8:30 AM to 8:30 PM yesterday 11/28. Started on Midodrine 11/28. BB on hold
-Currently in rate controlled a-fib @ 70-90's. No Amiodarone per Cards. Will resume GDMT as BP permits
-Resumed Eliquis on 11/25
-[place] discontinued 11/27, MVO2 off cordis 59.7%
-Will consider d/c of marcelo today, if no bumex gtt required
-Groin C/D/I without hematoma
-Repeat echo on 11/24 showed a well seated TAVR with PG/MG 7/3 mmHg, trace AI, EF 15-20%
-Monitor thrombocytopenia, 134->96->93->96-> 93K today (noted to be on the decline following resumption of Eliquis)
-Monitor elevated LFTs, all but AST is normal. Trending down
-Cont. current meds (ASA, Lipitor, Eliquis)
-OOB into chair
-Consider diuresis again today, likely no gtt. 24hr u/o 5300 mL
-Replete electrolytes
-Hyponatremia has resolved, 126-> 130-> 134 -> 135, no more Samsca per Nephrology
Assessment / Plan
-
Assessment:
S/p L TF TAVR w/ placement of 29mm KIMBERLY 3 valve, by Dr Hung/Luis, on 11/24/24, pod#5
-Severe aortic stenosis (P/M: 41/23, WICHO 0.5, DVI 0.2).
-Gjwn-xv-ndflihqe aortic insufficiency
-Mild mitral regurgitation
-Moderate tricuspid regurgitation
-Reduced left ventricular ejection fraction 15%-20%
-Systolic and diastolic CHF
-Inotrope-dependant qjrlr-us-perrxxb combined systolic and diastolic cardiogenic shock
-Moderate pulmonary hypertension (PA 74/43) with pulmonary capillary wedge pressure 35 mmHg
-Left ventricular end diastolic pressure remains at 35 mmHg.
-3V CAD
-HTN
-HLD
-DJD
-MRSA+ (nasal swab), 11/15/24
-Recent PNA, 09/03
-Prediabetes (hgb A1C 6.1)
-Elevated LFTs, likely d/t shock liver
-KATE, likely prerenal
-Hyponatremia
-Glaucoma
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
-A fib S/P multiple cardioversions (on Eliquis at home)
-Pleural effusion S/P R thoracentesis with evacuation of 1L fluid
-S/P bilateral THR
-S/P bilateral cataracts
-Acute postop blood loss/anemia (stable)
-Acute postop thrombocytopenia (stable)
Discussed patient care with: Cardiology, Nursing, Respiratory Therapy, Pharmacy and Care Team
Subjective
Procedure
S/p L TF TAVR w/ placement of 29mm KIMBERLY 3 valve, by Dr Hung/Luis, on 11/24/24
-
Date of Service: November 29, 2024
Pt c/o mild incisional pain, otherwise feels well
Objective Data
-
Lab Results
11/29/24 03:35
11/29/24 03:35
PT 18.4 Sec (11.4-14.6) H 11/25/24 03:10
INR 1.51 11/25/24 03:10
APTT 101.9 Sec (23.4-35.0) H 11/23/24 23:12
Vital Signs
Vital Signs
Temp Pulse Resp BP Pulse Ox
98 F 94 12 100/78 98
11/29/24 04:00 11/29/24 04:30 11/29/24 04:00 11/29/24 04:00 11/29/24 04:00
CT Intake/Output/Weight
11/28/24 11/28/24 11/29/24
06:59 18:59 06:59
Intake Total 304.0 / 916.4 225.6 / 527.6 302 / 527.6
Output Total 4125 / 7750 3075 / 4590 1515 / 4590
Balance -3821.0 / -6833.6 -2849.4 / -4062.4 -1213 / -4062.4
SaO2: 98 (RA)
Physical Exam
-
General: Awake, Oriented and AOx3
Cardiovascular: Irregular rate & rhythm, No Murmurs, No Rub and No Gallop
Respiratory: Decreased Breath Sounds (at bases, otherwise clear)
Sternum: Stable
Incision: Clean, Dry, Intact and Dressing Intact
Extremities: Edema +1
Data Reviewed
-
Lab Results: Results Reviewed
Medications: Active Meds Reviewed
Chest X-Ray: Report Reviewed and Image Reviewed
ECG: Report Reviewed and Image Reviewed
[2024-11-29] MEDS: ELIQUIS 5 MG PO ×2 (07:48→19:51)
[2024-11-29] MEDS: ProAmatine 10 MG PO ×3 (07:48→17:22)
[2024-11-29] MEDS: ASPIR LOW (ENTERIC COATED) 81 MG PO (07:48)
[2024-11-29] MEDS: COSOPT EYE DROPS 1 DROP BOTH EYES ×2 (07:49→19:51)
--- NOTE | 2024-11-29 07:59 | PTCARENOTE ---
Received pt from mini shifter RN; pt AAOx3; A-fib on monitor and VSS; RIJ Cordis, Left A-line and PIV x2 all patent; lungs diminished with fine crackles at bases; IS to 2000; positive bowel sounds; Burgess catheter draining yellow urine; palpable
pulses throughout; trace lower extremity edea; B/L groin sites C/D/I; see nursing documentation for further details.
[2024-11-29] MEDS: BUMEX 2 MG IV (08:14)
[2024-11-29] MEDS: MIRALAX 17 GRAMS PO (08:14)
[2024-11-29] MEDS: FLOMAX 0.4 MG PO ×2 (08:14→08:15)
--- NOTE | 2024-11-29 08:23 | PTCARENOTE ---
Burgess catheter removed per CVNP order.
--- NOTE | 2024-11-29 09:34 | CM ---
Reviewed chart. Met with Mr. Gillespie to review discharge plans. He states he is feeling well. Prior to admission he resides with his spouse in a two story home with one step to enter. He has a full bathroom on each floor. He has to go up a full
flight of steps to get to bedroom. He can stay on the first floor if needed. Prior to admission he was independent with ambulation and adls. He has a single pint cane and walker at home. His spouse works outside the home to days per week. She is
working today, so she will be off ,Wednesday and the weekend if he goes home then, to assist in his care if needed. Reviewed a home visit by the Transitional Care Nurse. He is agreeable to a home visit. Medical work-up in progress. The
discharge plan is to return home with his spouse and a home visit by the Transitional Care Nurse when medically stable.
--- NOTE | 2024-11-29 09:51 | W.PN.NEPH.PH ---
Today's Communication / Plan
-
Continue IV bolus Bumex monitor for bicarb with significant diuresis
Assessment/Plan
-
IMP:
Severe s/p TAVR 11/24
ICMO
Acute on chronic HFrEF
cardiogenic shock
Hyponatremia
PAF
CAD
HLD
DJD
Prediabetes (hgb A1C 6.1)
Elevated LFTs, likely d/t shock liver
KATE -resolved
Glaucoma
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
Pleural effusion S/P R thoracentesis with evacuation of 1L fluid 11/15/24
plan:
A/w possible SZ during pre op, s/p TAVR on 11/24
Hyponatremia-high ADH state, U osmo 424, U na low 20 with cardiorenal and hypervolemia
sodium improved with samsca
monitor met alkalosis
titrate pressors to keep MPA>65, cont midodrine
dobutamine gtt off per cards
follow labs
maintain FR 48 ounces/day
Continuous to diuresis weights down -4 L over the last 24 hours.
Bumex drip discontinued is now getting IV bolus 2 mg twice a day.
Remains on high flow oxygen
Chest x-ray independently reviewed lung caballero are relatively clear with significant cardiomegaly
Total Time Spent with Patient (in minutes): 35
-
-
Date of Service: November 29, 2024
CC / HPI / ROS
-
Chief Complaint:
CHF status post TAVR
History of Present Illness:
Postop hyponatremia in the setting of hypervolemia improved and stable
Review of Systems:.
Remains on high flow oxygen.
No chest pain.
Weights improving remains total body volume overload
Labs
-
Labs:
WBC 5.3 10^3/uL (4.8-10.8) 11/29/24 03:35
RBC 4.63 10^6/uL (4.70-6.10) L 11/29/24 03:35
Hgb 12.3 g/dL (13.0-18.0) L 11/29/24 03:35
Hct 38.2 % (39.0-52.0) L 11/29/24 03:35
Plt Count 93 10^3/uL (130-400) L 11/29/24 03:35
Sodium 135 mmol/L (135-145) 11/29/24 03:35
Potassium 4.2 mmol/L (3.5-5.1) 11/29/24 03:35
Chloride 97 mmol/L (98-107) L 11/29/24 03:35
Carbon Dioxide 34 mmol/L (22-30) H 11/29/24 03:35
BUN 29 mg/dl (9-20) H 11/29/24 03:35
Creatinine 0.8 mg/dL (0.7-1.3) 11/29/24 03:35
eGFR > 60.00 11/29/24 03:35
Glucose 88 mg/dl (70-99) 11/29/24 03:35
Calcium 8.9 mg/dl (8.4-10.2) 11/29/24 03:35
Gtf-A-Dzbodesjelj Pept 45116 pg/ml 11/15/24 08:37
Albumin 3.0 g/dl (3.5-5.0) L 11/29/24 03:35
Physical Exam
-
Vital Signs:
Vital Signs
Temp Pulse Resp BP Pulse Ox
98.2 F 83 18 90/77 96
11/29/24 08:00 11/29/24 09:00 11/29/24 08:00 11/29/24 08:00 11/29/24 08:26
Respiratory:: Bilateral: Coarse
Lung Excursion:: Normal
Abdomen:: Soft
Bowel Sounds:: Normal
Extremity Edema:: +3: Bilateral:
Burgess Catheter: Yes
--- NOTE | 2024-11-29 12:06 | W.PN.CD ---
Today's Communication / Plan
-
Challenging management with cardiomyopathy and severely reduced LVF
BP limiting meds
transiton to oral Bumex 2mg a day
low dose BB as BP will allow
NSVT - Monitor on telemetry
Reasessment by Dr Smith tomorrow
Impression / Plan
-
Impression/Plan: 69 y/o male with HTN, HLD, hx of cerebellar CVA, PAF, severe , severe ICMO with chronic HFrEF admitted for elective TAVR, found to be in decompensated cardiogenic shock treated with inotropes and urgent TAVR.
#Severe
-Chronic, progressive
-s/p #29 Ryan SABRINA S3 Ultra TAVR via left transfemoral approach, 11/24/24.
-Access sites are C/D/I.
-Telemetry is unremarkable.
-Antithrombotic therapy with therapeutic anticoagulation (apixaban 5 mg BID).
#ICMO/Acute on chronic HFrEF/cardiogenic shock
-Acute on chronic.
-on low dose norepi, midodrine was started to help wean, 11/28/23 norepi turned off and plan per notes -accepting MAP goal of 60 as long as end organs and mentation remain stable
-likely nearing euvolemia, transition to oral diuretic - starting with bumex 2 PO, redosed in afternoon if needed for goal negative 500
-once off norepi x12 hours, restart metop at low dose
-Restart SGLT2i at discharge. Maryam was wonderingif Farxiga made him lose his tast. but is welling to try Jardiance (empagliflozin - he is no longer interested in dapagliflozin)
-No role for ACEI/ARB/ARNi/MRA given low BP.
-Per Dr Smith - There may be a role for Life-Vest prior to discharge in anticipation of primary prevention ICD/ROLL UP HELPER-D, though patient has not had significant burden of NSVT. Continue to assess.
#PAF:
-Currently in rate controlled AF.
-h/o JOE thrombus.
-Rate/rhythm control with metoprolol succinate and amiodarone.
-CHADS2-Vasc = 6 (CHF, HTN, Age x1, CVA x2, vascular disease).
-Therapeutic anticoagulation with apixaban 5 mg BID.
NSVT
- 5beat and 7 beat run.
- asymptomatic'
- Beta martín when BP will allow
- monitor on tele
.
#CAD
-Chronic, stable. No angina.
-Continue secondary prevention with aspirin, atorvastatin.
-Metoprolol on hold due to BP.
Subjective/Interval History:
Feeling well sitting up in chair
reports feeling well with ambulation
DATA:
TTE, 12/04/2024:
CONCLUSIONS
Severely reduced left ventricular systolic function.
Left ventricular ejection fraction is 15% by Velásquez's method of discs.
Flattened septum in systole and diastole consistent with RV pressure and volume
overload.
Normal right ventricular size and function.
S/p Sabrina 29 TAVR with peak/mean gradients of 11/6 mmHg. Trace paravalvular
aortic regurgitation.
No significant change since the prior study of 11/24/24.
TAVR, 11/24/2024:
CONCLUSIONS
1. Successful placement of a Ryan Sabrina S3 Ultra 29 mm transcatheter aortic valve via left transfemoral approach with no acute complications.
2. Acute on chronic heart failure with elevated filling pressures (LVEDP = 35).
Right Heart Catheterization, 11/23/2024:
CONCLUSION:
1. Severely elevated filling pressures (PCWP = 35 mmHg at 81.6 kg).
2. Severely depressed cardiac function on dobutamine (cardiac index 1.95 L/min/m� by Sujey, 1.74 L/min/m� by thermodilution), consistent with cardiogenic shock.
3. 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
Coronary angiography, 10/12/2024:
CORONARY ANGIOGRAPHY
Dominance: right
LM: large with mild disease
LAD: large vessel giving rise a moderate caliber D1, large branching D2, and multiple septal perforators. There is a focal 50% stenosis in the proximal aspect of D1. The D2 has eccentric, focal, moderate-severe stenoses proximal to the bifurcation
as well as in the proximal aspects of both limbs. The LAD proper has mild calcific disease proximally, a 50% stenosis just after D2, and a 40% stenosis in the mid-distal vessel.
LCx: Large vessel giving rise to three small-moderate caliber OM branches. There is a 90% stenosis in the proximal vessel. OM 2 is subtotaled proximally. OM3 provides collaterals to the distal RCA.
RCA: Severely diseased through the proximal to mid section with a total occlusion distally. The large RPDA and a large RPL branch are supplied by zxyc-cn-[id number] collaterals.
Physical Exam
Vital Signs/Labs
Vital Signs
Temp Pulse Resp BP Pulse Ox
98.2 F 83 18 90/77 96
11/29/24 08:00 11/29/24 09:00 11/29/24 08:00 11/29/24 08:00 11/29/24 08:26
11/28/24 11/29/24 11/30/24
06:59 06:59 06:59
Actual Weight 77.2 kg 76.2 kg
11/29/24 03:35
11/29/24 03:35
PT 18.4 Sec (11.4-14.6) H 11/25/24 03:10
INR 1.51 11/25/24 03:10
APTT 101.9 Sec (23.4-35.0) H 11/23/24 23:12
Magnesium 2.0 mg/dl (1.6-2.3) 11/29/24 03:35
11/15/24
08:37
Tdd-B-Aiupclaflte Pept [id number]
Physical Exam
Constitutional: No acute distress
Cardiovascular: Rhythm & rate is regular
Respiratory: Wheeze Absent and Rhonchi Absent
GI: Soft and Non tender
Neuro/Psych: Alert
Other: Other (mild edema)
Data Reviewed
-
Date of Service: November 29, 2024
Medical Decision Making: Reviewed Test Results
Medical Tests (PFT, Pathology etc): Report Reviewed by me
Labs: Labs Reviewed by me
--- NOTE | 2024-11-29 12:46 | PTCARENOTE ---
A-line and Cordis removed; A-fib on monitor and VSS; pt ambulating hallway with RN; pt in chair with family at bedside; assessment unchanged.
--- NOTE | 2024-11-29 16:11 | PTCARENOTE ---
A-fib on monitor and VSS; assessment unchanged and pt in chair with family at bedside.
[2024-11-29] MEDS: LIPITOR 40 MG PO (17:22)
--- NOTE | 2024-11-29 20:00 | PTCARENOTE ---
assumed care of pt from previous RN. pt A&Ox4, resting in chair at time of assessment. A fib w/ occasional PVCs on tele-monitor. POX 100% on RA. abd s/n, +BS. +BM today. voiding clear, mala colored urine in urinal. all surgical sites stable, CDI.
PIVx2 intact. see worklist for complete nursing assessment, interventions, VS, and I&Os.
--- NOTE | 2024-11-29 23:16 | PTCARENOTE ---
assessment remains unchanged. VSS. pt assisted to bathroom. +BM.
[2024-11-30] VITALS (16 sets, daily range): BP systolic 79–108; BP diastolic 61–95; PULSE 102; O2SAT 98–100; BMI 25.7
--- NOTE | 2024-11-30 04:15 | W.PN.CT ---
Today's Communication / Plan
-
-No major issues overnight. Hemodynamically and neurologically intact
-Dobutamine and Levophed were weaned off yesterday morning. Received Bumex gtt from 8:30 AM to 8:30 PM yesterday 11/28. Started on Midodrine 11/28. BB on hold
-Currently in rate controlled a-fib @ 70-90's. No Amiodarone per Cards. Will resume GDMT as BP permits
-Resumed Eliquis on 11/25
-[place] discontinued 11/27, MVO2 off cordis 59.7%
-Start PO bumex today
-Groin C/D/I without hematoma
-Repeat echo on 11/24 showed a well seated TAVR with PG/MG 7/3 mmHg, trace AI, EF 15-20%
-Monitor thrombocytopenia, 90K today, stable from 93 yesterday
-Monitor elevated LFTs. Trending down
-Cont. current meds (ASA, Lipitor, Eliquis)
-Replete electrolytes as needed
-Hyponatremia has resolved
-discharge planning
Assessment / Plan
-
Assessment:
S/p L TF TAVR w/ placement of 29mm KIMBERLY 3 valve, by Dr Hung/Luis, on 11/24/24, pod#6
-Severe aortic stenosis (P/M: 41/23, WICHO 0.5, DVI 0.2).
-Ldyb-zf-kkstmytl aortic insufficiency
-Mild mitral regurgitation
-Moderate tricuspid regurgitation
-Reduced left ventricular ejection fraction 15%-20%
-Systolic and diastolic CHF
-Inotrope-dependant frkuh-bx-fzzymkm combined systolic and diastolic cardiogenic shock
-Moderate pulmonary hypertension (PA 74/43) with pulmonary capillary wedge pressure 35 mmHg
-Left ventricular end diastolic pressure remains at 35 mmHg.
-3V CAD
-HTN
-HLD
-DJD
-MRSA+ (nasal swab), 11/15/24
-Recent PNA, 09/03
-Prediabetes (hgb A1C 6.1)
-Elevated LFTs, likely d/t shock liver
-KATE, likely prerenal
-Hyponatremia
-Glaucoma
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
-A fib S/P multiple cardioversions (on Eliquis at home)
-Pleural effusion S/P R thoracentesis with evacuation of 1L fluid
-S/P bilateral THR
-S/P bilateral cataracts
-Acute postop blood loss/anemia (stable)
-Acute postop thrombocytopenia (stable)
Subjective
Procedure
S/p L TF TAVR w/ placement of 29mm KIMBERLY 3 valve, by Dr Hung/Luis, on 11/24/24
-
Date of Service: November 30, 2024
Objective Data
-
Lab Results
11/30/24 04:03
11/30/24 04:03
PT 18.4 Sec (11.4-14.6) H 11/25/24 03:10
INR 1.51 11/25/24 03:10
APTT 101.9 Sec (23.4-35.0) H 11/23/24 23:12
Vital Signs
Vital Signs
Temp Pulse Resp BP Pulse Ox
97.8 F 87 14 103/71 98
11/30/24 03:55 11/30/24 04:00 11/30/24 03:55 11/30/24 03:55 11/30/24 03:55
CT Intake/Output/Weight
11/29/24 11/29/24 11/30/24
06:59 18:59 06:59
Intake Total 422 / 657.6 980 / 980
Output Total 1635 / 4710 750 / 750
Balance -1213 / -4052.4 230 / 230
SaO2: 98
Physical Exam
-
General: AOx3
Cardiovascular: Irregular rate & rhythm
Respiratory: Clear
Incision: Clean, Dry and Intact
Extremities: Edema +1
--- NOTE | 2024-11-30 04:19 | PTCARENOTE ---
no acute changes. VSS. AM labs collected and sent.
[2024-11-30 04:39] LABS: Hematocrit 38.2 % (39.0-52.0); Hemoglobin 12.4 g/dL (13.0-18.0); Mean Corp Hgb Conc. 32.5 g/dL (33.0-37.0); Mean Corpuscular Hgb 26.5 pg (27.0-31.0); Mean Corpuscular Volume 81.6 fL (80.0-94.0); Mean Platelet Volume 10.4 fL (7.4-10.4); Platelet Count 90 10^3/uL (130-400); Red Blood Cell Count 4.68 10^6/uL (4.70-6.10); Red Cell Dist. Width 16.4 % (11.5-14.5)
[2024-11-30 04:45] LABS: ALT (SGPT) 81 U/L (0-50); AST (SGOT) 55 U/L (17-59); Albumin 3.2 g/dl (3.5-5.0); Alkaline Phosphatase 121 U/L (38-126); Blood Urea Nitrogen 33 mg/dl (9-20); Calcium 8.3 mg/dl (8.4-10.2); Carbon Dioxide 31 mmol/L (22-30); Chloride 93 mmol/L (98-107); Direct Bilirubin 0.3 mg/dl (0.0-0.4); Estimated Creatinine Clearance 82 ml/min; Glucose 81 mg/dl (70-99); Potassium 3.9 mmol/L (3.5-5.1); Sodium 130 mmol/L (135-145); Total Bilirubin 1.8 mg/dl (0.2-1.3); Total Protein 5.8 g/dl (6.3-8.2); eGFR > 60.00
[2024-11-30] MEDS: KCL 20 MEQ PO (06:08)
--- NOTE | 2024-11-30 06:59 | W.PN.CD ---
Today's Communication / Plan
-
Ambulate.
Flex dose bumetanide to BID (or supplement with metolazone) PRN weight gain.
Agree with metoprolol 12.5 BID. Monitor BP response over the next 24 hours.
Life-Vest.
BMP one week after discharge.
Start empagliflozin 10 mg daily at discharge.
Impression / Plan
-
Impression/Plan: 69 y/o male with HTN, HLD, hx of cerebellar CVA, PAF, severe , severe ICMO with chronic HFrEF admitted for elective TAVR, found to be in decompensated cardiogenic shock treated with inotropes and urgent TAVR.
#Severe
-Chronic, progressive
-s/p #29 Ryan SABRINA S3 Ultra TAVR via left transfemoral approach, 11/24/24.
-Access sites are C/D/I.
-Telemetry is unremarkable.
-Antithrombotic therapy with therapeutic anticoagulation (apixaban 5 mg BID).
#ICMO/Acute on chronic HFrEF/cardiogenic shock
-Acute on chronic.
-Weaned from norepinephrine/dobutamine, requiring midodrine.
-Restart SGLT2i at discharge. Patient was wondering if dapagliflozin made him lose his taste. but is willing to try empagliflozin.
-No role for ACEI/ARB/ARNi/MRA given low BP.
-Continue bumetanide 2 mg PO daily, flex dosing to BID (vs. augmentation with metolazone) PRN weight gain of 1-3 lbs/24 hours, 3-5 lbs/week.
-Life-Vest at discharge.
-BMP in one week.
-Repeat echocardiogram in 6-8 weeks to re-assess LVEF. If EF remains < 35%, refer for CRAB FISHERMAN-D.
#PAF:
-Currently in rate border line controlled AF.
-h/o JOE thrombus.
-Rate/rhythm control with metoprolol succinate 12.5 mg BID. Hold amiodarone given current adequate rate control and transaminitis.
-CHADS2-Vasc = 6 (CHF, HTN, Age x1, CVA x2, vascular disease).
-Therapeutic anticoagulation with apixaban 5 mg BID.
#NSVT
-Acute.
-5 beat and 7 beat run.
-Frequent PVC's, triplets.
-Metoprolol succinate 12.5 mg BID restarted this morning.
-Life-Vest at discharge.
.
#CAD
-Chronic, stable. No angina.
-Continue secondary prevention with aspirin, atorvastatin.
Subjective/Interval History:
Weaned off of norepinephrine/dobutamine > 24 hours.
Midodrine started for BP support.
Weight up 0.5 kg from yesterday.
Na down to 130.
DATA:
TTE, 12/04/2024:
CONCLUSIONS
Severely reduced left ventricular systolic function.
Left ventricular ejection fraction is 15% by Velásquez's method of discs.
Flattened septum in systole and diastole consistent with RV pressure and volume
overload.
Normal right ventricular size and function.
S/p Sabrina 29 TAVR with peak/mean gradients of 11/6 mmHg. Trace paravalvular
aortic regurgitation.
No significant change since the prior study of 11/24/24.
TAVR, 11/24/2024:
CONCLUSIONS
1. Successful placement of a Ryan Sabrina S3 Ultra 29 mm transcatheter aortic valve via left transfemoral approach with no acute complications.
2. Acute on chronic heart failure with elevated filling pressures (LVEDP = 35).
Right Heart Catheterization, 11/23/2024:
CONCLUSION:
1. Severely elevated filling pressures (PCWP = 35 mmHg at 81.6 kg).
2. Severely depressed cardiac function on dobutamine (cardiac index 1.95 L/min/m� by Sujey, 1.74 L/min/m� by thermodilution), consistent with cardiogenic shock.
3. 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
Coronary angiography, 10/12/2024:
CORONARY ANGIOGRAPHY
Dominance: right
LM: large with mild disease
LAD: large vessel giving rise a moderate caliber D1, large branching D2, and multiple septal perforators. There is a focal 50% stenosis in the proximal aspect of D1. The D2 has eccentric, focal, moderate-severe stenoses proximal to the bifurcation
as well as in the proximal aspects of both limbs. The LAD proper has mild calcific disease proximally, a 50% stenosis just after D2, and a 40% stenosis in the mid-distal vessel.
LCx: Large vessel giving rise to three small-moderate caliber OM branches. There is a 90% stenosis in the proximal vessel. OM 2 is subtotaled proximally. OM3 provides collaterals to the distal RCA.
RCA: Severely diseased through the proximal to mid section with a total occlusion distally. The large RPDA and a large RPL branch are supplied by algc-tu-mwbfr collaterals.
Physical Exam
Vital Signs/Labs
Vital Signs
Temp Pulse Resp BP Pulse Ox
36.6 C 89 14 103/71 98
11/30/24 03:55 11/30/24 06:00 11/30/24 03:55 11/30/24 03:55 11/30/24 04:19
11/28/24 11/29/24 11/30/24
11:59 11:59 11:59
Actual Weight 77.2 kg 76.2 kg 76.7 kg
11/30/24 04:03
11/30/24 04:03
PT 18.4 Sec (11.4-14.6) H 11/25/24 03:10
INR 1.51 11/25/24 03:10
APTT 101.9 Sec (23.4-35.0) H 11/23/24 23:12
Magnesium 2.0 mg/dl (1.6-2.3) 11/30/24 04:03
11/15/24
08:37
Knb-Z-Vktbromlute Pept [id number]
Physical Exam
Constitutional: No acute distress and Comfortable
EENT: Anicteric and Moist mucous membranes
Cardiovascular: Pedal edema is absent, JVD pressure is normal, Rhythm/rate is irregular, S1S2 is normal and Murmur/rub/gallop absent
Respiratory: Respiratory effort normal, Lungs clear to auscul., Wheeze Absent, Crackles Absent and Rhonchi Absent
GI: Soft, Distention absent, Flat, Non tender and Normal bowel sounds
Neuro/Psych: AO x 3
Data Reviewed
-
Date of Service: November 30, 2024
Medical Decision Making: Reviewed Test Results, Independent Historian Assessment and Test Interpretation
EKG: Tracing Personally Visualized and interpreted and Report Reviewed by me
Echo: Report Reviewed by me
X-Ray/CT/US/MRI/NUC/PET: Image Personally Visualized and interpreted and Report Reviewed by me
Medical Tests (PFT, Pathology etc): Image Personally Visualized and interpreted and Report Reviewed by me
Labs: Labs Reviewed by me
Old Records: Reviewed
--- NOTE | 2024-11-30 07:30 | PTCARENOTE ---
Received pt from [facility]. Walking rounds completed. Pt assessment completed in chair. Pt is AAOx4. No neuro deficits noted. Afib with LBBB on monitor. HR 70-100's, B/P 83/70. + Pulses, Bilateral lower extremities +1 edema. Lungs clear, diminished
in bases. POX 98% RA. I/S 1500. Pt encouraged to use 10X per hour while awake. Normal BS. Abdomen soft, non-tender to touch. Pt voiding dark, yellow urine WNL L 20 AC and L 20 wrist PVA are intact and flush. Plan of care discussed with pt. Pt agrees
with plan. Will continue to monitor pt needs.
--- NOTE | 2024-11-30 09:00 | PTCARENOTE ---
Resumed care of patient. Pt assessed while he was sitting in the chair. Pt alert and oriented x4. Pt denies pain, shortness of breath, and nausea. YAO with equal strength throughout. Afib with LBBB with PVCs on tele with rates 90s-100s. BP 95/68.
Bilateral radial and DP pulses palpable No edema noted. POX 98% on RA. Lungs diminished in the bases. IS encouraged-2000mL achieved. Abdomen soft, nontender. +BS. +BM yesterday. Pt voiding mala urine in the urinal. B/l groins soft, nontender. PIV
x2 intact. See MAR for medication administration. See worklist for complete nursing assessment. Plan of care reviewed and patient in agreement.
[2024-11-30] MEDS: BUMEX 2 MG PO (09:12)
[2024-11-30] MEDS: ELIQUIS 5 MG PO ×2 (09:12→20:23)
[2024-11-30] MEDS: ProAmatine 10 MG PO ×3 (09:12→17:27)
[2024-11-30] MEDS: FLOMAX 0.4 MG PO (09:12)
[2024-11-30] MEDS: TOPROL XL 12.5 MG PO (09:12)
[2024-11-30] MEDS: MIRALAX 17 GRAMS PO (09:13)
[2024-11-30] MEDS: COSOPT EYE DROPS 1 DROP BOTH EYES ×2 (09:13→20:22)
[2024-11-30] MEDS: ASPIR LOW (ENTERIC COATED) 81 MG PO (09:13)
--- NOTE | 2024-11-30 10:32 | W.PN.NEPH.PH ---
Today's Communication / Plan
-
Bumex p.o.
Assessment/Plan
-
IMP:
Severe s/p TAVR 11/24
ICMO
Acute on chronic HFrEF
cardiogenic shock
Hyponatremia
PAF
CAD
HLD
DJD
Prediabetes (hgb A1C 6.1)
Elevated LFTs, likely d/t shock liver
KATE -resolved
Glaucoma
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
Pleural effusion S/P R thoracentesis with evacuation of 1L fluid 11/15/24
plan:
A/w possible SZ during pre op, s/p TAVR on 11/24
Hyponatremia-high ADH state, U osmo 424, U na low 20 with cardiorenal and hypervolemia
sodium improved with samsca
monitor met alkalosis
Off pressors/ cont midodrine
dobutamine gtt off per cards
follow labs
maintain FR 48 ounces/day
Bumex drip discontinued
Bumex 2 mg p.o. daily started by cardiology
Sodium 130 today down from 135. He remains in negative fluid balance but will monitor over the next 24 hours and redose Samsca
Chest x-ray independently reviewed lung caballero are relatively clear with significant cardiomegaly
Total Time Spent with Patient (in minutes): 35
-
-
Date of Service: November 30, 2024
CC / HPI / ROS
-
Chief Complaint:
CHF status post TAVR
History of Present Illness:
Postop hyponatremia in the setting of hypervolemia improved and stable
Review of Systems:.
On BiPAP
No chest pain.
Weights improving remains total body volume overload
Labs
-
Labs:
WBC 6.0 10^3/uL (4.8-10.8) 11/30/24 04:03
RBC 4.68 10^6/uL (4.70-6.10) L 11/30/24 04:03
Hgb 12.4 g/dL (13.0-18.0) L 11/30/24 04:03
Hct 38.2 % (39.0-52.0) L 11/30/24 04:03
Plt Count 90 10^3/uL (130-400) L 11/30/24 04:03
Sodium 130 mmol/L (135-145) L 11/30/24 04:03
Potassium 3.9 mmol/L (3.5-5.1) 11/30/24 04:03
Chloride 93 mmol/L (98-107) L 11/30/24 04:03
Carbon Dioxide 31 mmol/L (22-30) H 11/30/24 04:03
BUN 33 mg/dl (9-20) H 11/30/24 04:03
Creatinine 0.8 mg/dL (0.7-1.3) 11/30/24 04:03
eGFR > 60.00 11/30/24 04:03
Glucose 81 mg/dl (70-99) 11/30/24 04:03
Calcium 8.3 mg/dl (8.4-10.2) L 11/30/24 04:03
Qkh-N-Oejuxhmxmgc Pept 38930 pg/ml 11/15/24 08:37
Albumin 3.2 g/dl (3.5-5.0) L 11/30/24 04:03
Physical Exam
-
Vital Signs:
Vital Signs
Temp Pulse Resp BP Pulse Ox
98.3 F 93 14 95/68 98
11/30/24 09:00 11/30/24 10:00 11/30/24 03:55 11/30/24 09:07 11/30/24 09:06
Respiratory:: Bilateral: Coarse
Lung Excursion:: Normal
Abdomen:: Soft
Bowel Sounds:: Normal
Extremity Edema:: +3: Bilateral:
Burgess Catheter: Yes
--- NOTE | 2024-11-30 12:12 | CM ---
Reviewed chart. Received message that Mr. Gillespie may need a Life Vest. Telephone call to [facility] Life Vest Liaison to make the referral. Sent the referral. Awaiting approval. If the Life Vest gets approved the Life Vest brewery representative will be here
at 6:00-7:00 p.m. Met with Mr. Gillespie to review discharge plans. He states he is feeling well and maybe able to go home soon. He states he has been ambulating in the hallway and getting out of the chair without a problem. Prior to admission he
resides with his spouse in a two story home with one step to enter. He has a full flight of steps to get to bedroom. He has a full bathroom on each level. Prior to admission he was independent with ambulation and adls. He has a single point cane
and walker at home. His spouse works two days a week. We reviewed a home visit by the Transitional Care Nurse. He is agreeable to a home visit. Medical work-up in progress. The discharge plan is to return home with his spouse and a home visit by
the Transitional Care Nurse when medically stable.
--- NOTE | 2024-11-30 12:30 | PTCARENOTE ---
Pt reassessed. Pt sitting in the chair. Afib on tele with rates in the 100s. BP 85/64. POX 100% on RA. Pt voiding clear yellow urine in the urinal. Ambulating in the room independently, and tolerating. No other acute changes.
--- NOTE | 2024-11-30 15:30 | PTCARENOTE ---
Pt reassessed. Afib on tele with rates 80s-90s. Hypotensive, asymptomatic. CT LICENSED STAFF MFT notified. POX 98% on RA. Pt sitting in the chair, at bedside.
[2024-11-30] MEDS: LIPITOR 40 MG PO (17:27)
[2024-11-30] MEDS: TOPROL XL PO (21:31)
[2024-12-01] VITALS (18 sets, daily range): BP systolic 80–132; BP diastolic 53–115; PULSE 98; O2SAT 99–100; BMI 26.0
--- NOTE | 2024-12-01 00:02 | PTCARENOTE ---
VSS. Pt in AFIB on monitor. HR 70-100's. B/P 92/80. PM care provided. PT resting in bed. Will continue to monitor pt needs.
[2024-12-01] MEDS: OCEAN, SALINE MIST 2 SPRAYS NASAL ×2 (02:24→09:32)
--- NOTE | 2024-12-01 04:54 | PTCARENOTE ---
VSS. Pt in Afib with LBBB ob monitor. Morning labs obtained and sent. Educated pt on fluid restriction and heart failure. Pt resting in bed. Will continue to monitor pt needs.
[2024-12-01 05:04] LABS: ALT (SGPT) 80 U/L (0-50); AST (SGOT) 53 U/L (17-59); Alkaline Phosphatase 128 U/L (38-126); Blood Urea Nitrogen 30 mg/dl (9-20); Calcium 7.8 mg/dl (8.4-10.2); Carbon Dioxide 31 mmol/L (22-30); Chloride 93 mmol/L (98-107); Direct Bilirubin 0.4 mg/dl (0.0-0.4); Estimated Creatinine Clearance 82 ml/min; Glucose 88 mg/dl (70-99); Potassium 3.7 mmol/L (3.5-5.1); Sodium 130 mmol/L (135-145); Total Bilirubin 1.5 mg/dl (0.2-1.3); Total Protein 5.6 g/dl (6.3-8.2); eGFR > 60.00
[2024-12-01] MEDS: TOPROL XL 12.5 MG PO (06:01)
--- NOTE | 2024-12-01 06:08 | PTCARENOTE ---
VSS. Afib with LBBB on monitor. Am care provided. Pt HR increase to 130-150 upon exertion. CTPA Michael notified. Troprol XL 12.5mg ordered stat and provided (see MAR). HR 110-120, B/P 102/81. Pt resting in chair. Will continue to monitor pt needs.
--- NOTE | 2024-12-01 08:00 | PTCARENOTE ---
Resumed care of patient. Pt assessed while he was sitting in the chair. Pt alert and oriented x4. YAO with equal strength throughout. Afib with LBBB and PVCs on tele with rates in the 90s-110s. BP 98/71. Bilateral radial and DP pulses palpable. No
edema noted. POX 98% on RA. Lungs diminished in the bases. No cough noted. IS encouraged-2000mL achieved. +BS BM yesterday. Abdomen soft, nontender. Voiding independently, reports no issues. B/l groins soft, intact. PIV x2 intact. See MAR for
medication administration. See worklist for complete nursing assessment. Plan of care reviewed and patient in agreement.
[2024-12-01] MEDS: ProAmatine 10 MG PO (08:01)
[2024-12-01] MEDS: ASPIR LOW (ENTERIC COATED) 81 MG PO (08:02)
[2024-12-01] MEDS: BUMEX 2 MG PO (08:02)
[2024-12-01] MEDS: ELIQUIS 5 MG PO (08:02)
[2024-12-01] MEDS: COSOPT EYE DROPS 1 DROP BOTH EYES (08:02)
[2024-12-01] MEDS: FLOMAX 0.4 MG PO (08:02)
--- NOTE | 2024-12-01 08:07 | W.DCSUMMARY ---
Addendum entered and electronically signed by MULUGETA Kirk 12/01/24 16:18:
Patient experienced LifeVest alert. Intervention canceled by patient. Dr. Gaitan notified and presented to unit to review rhythm strips on activities assistant, which is consistent with atrial fibrillation with rates in the 130s. Life vest territory
software engineering manager Jose notified and will have rep come to patient's house to assess settings. Patient deemed stable for discharge to home.
Original Note:
Discharge Summary
Discharge Data
Date of Admission: 11/23/24
Date of Discharge: 12/01/24
-
Pending Results: No
Hospital Course
Primary care physician: Greg Garcia
Outpatient kiln firer helper: Favian Smith
Inpatient consultants: [facility] Cardiology, nephrology
Procedures:
1. TAVR
Primary Diagnosis:
1. Severe nonrheumatic aortic stenosis
Secondary Diagnoses:
1. 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
2. Hyperlipidemia
3. Glaucoma
4. Coronary artery disease
5. History of Right cerebellar CVA
6. Degenerative joint disease status post bilateral total hip replacement
7. Chronic atrial fibrillation status post multiple cardioversions
8. Left atrial appendage thrombus (10/24/2024)
9. Prediabetes (A1c 6.1)
10. History of pleural effusion with right thoracentesis (11/15/2024)
11. Urinary retention
12. Acute on chronic nonischemic cardiomyopathy HFrEF EF (EF 15%)
13. Hyponatremia due to cardiorenal syndrome
14. Preoperative vasovagal event (CT head negative)
HPI: 69-year-old male electively admitted on 11/11 for TAVR
Hospital course: Patient suffered a vasovagal event preoperatively. Stat CT of the head was negative. Surgery was canceled. A coud� bladder catheter was placed for urinary retention and accurate I's and O's. Patient underwent right heart cath
for [place] and patient initiated on dobutamine/Levophed and Bumex infusion. Patient underwent a left transfemoral TAVR #29 mm KIMBERLY 3 valve on 11/24/[address] Jorje Coon. Postprocedure TTE reported an EF of 50% with AV gradients of 11/6 mmHg
and trace paravalvular leak. Eliquis is initiated. Patient was aggressively diuresed from postoperative day #1 through 5. Levophed was discontinued on postoperative day #4 and amiodarone discontinued as patient with history of chronic A-fib.
Beta-martín was resumed on postoperative day #5 and short acting converted to metoprolol. LifeVest was ordered. Midodrine was discontinued per discussion with cardiology. Goal MAP will be greater than 60 TORR. Sodium was 130 and tolvaptan x 1
dose given per renal. Patient was monitored throughout the day and MAP remained greater than 60 TORR. Bumex will continue on discharge in place of Lasix. Patient will have follow-up BMP in 1 week to evaluate his chronic hyponatremia.
Home medication changes:
Stop:
valsartan due to low normal range BP
Amiodarone due to chronic A-fib
Change:
Furosemide to Bumex
Toprol 12.5mg BID>daily
Discharge Plan
-
Patient Disposition: Home (Routine Discharge)
Discharge Diagnosis/Procedures: TF-TAVR
Condition: Fair
Diet: Low Cholesterol and 2 Gram Sodium
Activity: As tolerated
Driving Restrictions: No driving for 1 week
Bathing Restrictions: OK to Shower
Blood Work: BMP in 1 week
Others Tests: 30 Day Follow Up Echocardiogram: 12/25/2024 at 10:20am at [facility]
Other Services: Cardiac Rehab
Wound Care: Please do not apply lotions, creams or powder to groin areas. Please monitor for increased pain, swelling, redness or drainage. Please call your doctor if any occur.
Specialty Instructions: Weigh Daily- Call MD for wt gain/loss 3 lbs overnight/5 lbs in 1 week
Referrals:
CT Transitional Care Nurse [Outside] (The Cardiothoracic Transitional Care Nurse will call you to set up a visit in 1-2 days.)
[facility] [Outside]
(Cardiac Rehab Orientation appointment is on Wednesday01/01/25 at 0930
The Cardiac Rehab gym is located on the first floor of the [facility].)
Sariah Farr CRNP [Specified Professional Personl] - 12/28/24 9:20 am
Greg Valentino DO [Family Provider] -
Prescriptions:
New
acetaminophen 325 mg Tablet
650 mg PO Q4HPRN PRN (Reason: ROE, mild pain, or fever >101F) Qty: 0 0RF
tamsulosin 0.4 mg Capsule
0.4 mg PO DAILY Qty: 30 1RF
bumetanide 2 mg Tablet
2 mg PO DAILY Qty: 30 1RF
metoprolol succinate 25 mg Tablet Extended Release 24 Hr
12.5 mg PO DAILY Qty: 30 1RF
Continued
atorvastatin 40 mg Tablet
40 mg PO QPM
aspirin 81 mg Tablet,Delayed Release (Dr/Ec)
81 mg PO DAILY
Eliquis 5 mg Tablet
5 mg PO BID
dorzolamide-timolol 22.3-6.8 mg/mL Drops
1 drp BOTH EYES BID
potassium chloride 20 mEq Packet
20 meq PO DAILY
dapagliflozin propanediol [Farxiga] 10 mg Tablet
10 mg PO DAILY
Discontinued
amiodarone 200 mg Tablet
200 mg PO DAILY
metoprolol succinate 25 mg Tablet Extended Release 24 Hr
12.5 mg PO BID
valsartan 40 mg Tablet
40 mg PO DAILY
furosemide 40 mg tablet
40 mg PO BID
Discharge Orders:
Discharge Patient (As Directed); Ordered 12/01/24
Ordered By: Jaja Boo
Care Plan Goals
Care Plan Goals:
Problem: Readiness for enhanced knowledge related to diagnosis and treatment plan
Goal: Understand your diagnosis and treatment plan needs, including medications if applicable.
Instructions: Know your diagnosis, underlying causes and treatment plan options, including medications if applicable. Consult with your health care team to learn about your diagnosis and treatment plan, including medications if applicable.
Discharge Date and Time
Print Language: GREENLANDIC
[2024-12-01] MEDS: MIRALAX PO (08:09)
--- NOTE | 2024-12-01 08:18 | W.PN.CT ---
Today's Communication / Plan
-
-pod #7
-a-fib 80s while in bed, but 110s-130s once ambulates
-held Toprol last night d/t sbp 85. On Midodrine 10 tid
-gave Toprol early this am for elevated hr
-encourage IS, ambulate
Assessment / Plan
-
Assessment:
S/p L TF TAVR w/ placement of 29mm KIMBERLY 3 valve, by Dr Hung/Luis, on 11/24/24, pod#7
-Severe aortic stenosis (P/M: 41/23, WICHO 0.5, DVI 0.2).
-Tgng-uv-gablaoqa aortic insufficiency
-Mild mitral regurgitation
-Moderate tricuspid regurgitation
-Reduced left ventricular ejection fraction 15%-20%
-Systolic and diastolic CHF
-Inotrope-dependant icllq-pr-epuuecy combined systolic and diastolic cardiogenic shock
-Moderate pulmonary hypertension (PA 74/43) with pulmonary capillary wedge pressure 35 mmHg
-Left ventricular end diastolic pressure remains at 35 mmHg.
-3V CAD
-HTN
-HLD
-DJD
-MRSA+ (nasal swab), 11/15/24
-Recent PNA, 09/03
-Prediabetes (hgb A1C 6.1)
-Elevated LFTs, likely d/t shock liver
-KATE, likely prerenal
-Hyponatremia
-Glaucoma
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
-A fib S/P multiple cardioversions (on Eliquis at home)
-Pleural effusion S/P R thoracentesis with evacuation of 1L fluid
-S/P bilateral THR
-S/P bilateral cataracts
-Acute postop blood loss/anemia (stable)
-Acute postop thrombocytopenia (stable)
Discussed patient care with: Nursing and Care Team
Subjective
Procedure
S/p L TF TAVR w/ placement of 29mm KIMBERLY 3 valve, by Dr Hung/Luis, on 11/24/24
-
Date of Service: December 01, 2024
Objective Data
-
Lab Results
11/30/24 04:03
12/01/24 04:04
PT 18.4 Sec (11.4-14.6) H 11/25/24 03:10
INR 1.51 11/25/24 03:10
APTT 101.9 Sec (23.4-35.0) H 11/23/24 23:12
Vital Signs
Vital Signs
Temp Pulse Resp BP Pulse Ox
98.0 F 95 16 98/71 98
12/01/24 08:00 12/01/24 08:03 12/01/24 08:00 12/01/24 08:03 12/01/24 08:00
CT Intake/Output/Weight
11/30/24 12/01/24 12/01/24
18:59 06:59 18:59
Intake Total 440 / 440 480 / 480
Output Total 1455 / 2355 900 / 2355
Balance -1015 / -1915 -900 / -1915 480 / 480
SaO2: 98
Physical Exam
-
General: Awake and AOx3
Cardiovascular: Irregular rate & rhythm, No Murmurs and No Rub
Respiratory: Decreased Breath Sounds
Incision: Clean, Dry and Intact
Extremities: No Edema
Abdomen: soft, nontender, + bowel sounds
Data Reviewed
-
Lab Results: Results Reviewed
Medications: Active Meds Reviewed
Chest X-Ray: Report Reviewed and Image Reviewed
ECG: Report Reviewed and Image Reviewed
[2024-12-01] MEDS: FARXIGA 10 MG PO (09:31)
--- NOTE | 2024-12-01 10:32 | W.PN.NEPH.PH ---
Today's Communication / Plan
-
samsca
Assessment/Plan
-
IMP:
Severe s/p TAVR 11/24
ICMO
Acute on chronic HFrEF
cardiogenic shock
Hyponatremia
PAF
CAD
HLD
DJD
Prediabetes (hgb A1C 6.1)
Elevated LFTs, likely d/t shock liver
KATE -resolved
Glaucoma
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
Pleural effusion S/P R thoracentesis with evacuation of 1L fluid 11/15/24
plan:
samsca today
bumex po
follow BMP
-
-
Date of Service: December 01, 2024
CC / HPI / ROS
-
Chief Complaint:
CHF status post TAVR
History of Present Illness:
Postop hyponatremia in the setting of hypervolemia improved and stable 130
on bumex for HF, off inotropes
BP stable low
Review of Systems:.
no SOB
No chest pain.
Labs
-
Labs:
WBC 6.0 10^3/uL (4.8-10.8) 11/30/24 04:03
RBC 4.68 10^6/uL (4.70-6.10) L 11/30/24 04:03
Hgb 12.4 g/dL (13.0-18.0) L 11/30/24 04:03
Hct 38.2 % (39.0-52.0) L 11/30/24 04:03
Plt Count 90 10^3/uL (130-400) L 11/30/24 04:03
Sodium 130 mmol/L (135-145) L 12/01/24 04:04
Potassium 3.7 mmol/L (3.5-5.1) 02/21/25 04:04
Chloride 93 mmol/L (98-107) L 12/01/24 04:04
Carbon Dioxide 31 mmol/L (22-30) H 12/01/24 04:04
BUN 30 mg/dl (9-20) H 12/01/24 04:04
Creatinine 0.8 mg/dL (0.7-1.3) 12/01/24 04:04
eGFR > 60.00 12/01/24 04:04
Glucose 88 mg/dl (70-99) 12/01/24 04:04
Calcium 7.8 mg/dl (8.4-10.2) L 12/01/24 04:04
Fyp-R-Zhydanynaow Pept 81203 pg/ml 11/15/24 08:37
Albumin 3.0 g/dl (3.5-5.0) L 12/01/24 04:04
Physical Exam
-
Vital Signs:
Vital Signs
Temp Pulse Resp BP Pulse Ox
98.0 F 97 16 85/69 90
12/01/24 08:00 12/01/24 09:30 12/01/24 08:00 12/01/24 09:30 12/01/24 09:00
Cardiovascular:: Regular rate and rhythm
Respiratory:: Bilateral: Coarse
Lung Excursion:: Normal
Abdomen:: Nontender and Soft
Bowel Sounds:: Normal
Extremity Edema:: +1: Bilateral:
[2024-12-01] MEDS: SAMSCA 15 MG PO (11:24)
--- NOTE | 2024-12-01 11:28 | PTCARENOTE ---
Pt reassessed. Afib with LBBB with PVCs on tele with rates in the 80s. BP 85/70. POX 96% on RA. Lifevest rep at bedside, life vest applied. No other acute changes from previous assessment.
--- NOTE | 2024-12-01 11:31 | CM ---
Reviewed chart. Life Vest Straight Truck Driver was here today at 10:00 a.m. to fit the Life Vest. Met with Mr. Gillespie and his spouse to review discharge plans. He states he feels well and maybe able to go home soon. We reviewed a home visit by the
Transitional Care Nurse. He is agreeable to a home visit. Prior to admission he resides with his spouse in a two story home with one step to enter. He has a full flight of steps to get to bedroom. He has a full bathroom on each level. He has been
ambulating in the hallway. Prior to admission he was independent with ambulation and adls. He has a single point cane and walker at home. His spouse works outside the home two days a week. His cviibdk-on-alt resides close by and maybe able to
assist if needed. He has a prescription plan and uses [facility]. Medical work-up in progress. The discharge plan is to return home with his spouse, Sanjiv Ya and a home visit by the Transitional Care Nurse when medically stable.
--- NOTE | 2024-12-01 15:30 | PTCARENOTE ---
Pt reassessed. BP 91/53. Pt reports no dizziness. Resting in the chair. Dr. Smith notified of BP. Discharge orders written.
--- NOTE | 2024-12-01 15:45 | PTCARENOTE ---
Alarm heard from Life Vest. Pt awake, following instructions to push life vest button. HR 130s Afib with LBBB and PVCs. BP 104/84. CT APIGEE DEVELOPER and Dr. Smith notified. Pt informed Life Vest to adjust settings. Discharge remains in effect. Pt's at
bedside.
--- NOTE | 2024-12-01 16:07 | W.PN.CD ---
Today's Communication / Plan
-
discharge to home
Impression / Plan
-
Impression/Plan: 69 y/o male with HTN, HLD, hx of cerebellar CVA, PAF, severe , severe ICMO with chronic HFrEF admitted for elective TAVR, found to be in decompensated cardiogenic shock treated with inotropes and urgent TAVR.
#Severe
-Chronic, progressive
-s/p #29 Ryan SABRINA S3 Ultra TAVR via left transfemoral approach, 11/24/24.
-Access sites are C/D/I.
-Telemetry is unremarkable. Afib with RVR
-Antithrombotic therapy with therapeutic anticoagulation (apixaban 5 mg BID).
#ICMO/Acute on chronic HFrEF/cardiogenic shock
-Acute on chronic.
-Weaned from norepinephrine/dobutamine, now weaned from midodrine.
-Restart SGLT2i at discharge. Patient was wondering if dapagliflozin made him lose his taste. but is willing to try empagliflozin.
-Holding ACEI/ARB/ARNi/MRA given low BP. Will attempt to reinitiate as outpatient.
-Continue bumetanide 2 mg PO daily, flex dosing to BID (vs. augmentation with metolazone) PRN weight gain of 1-3 lbs/24 hours, 3-5 lbs/week.
-BMP in one week. Outpatient follow up in 1 week.
-cont. low dose metoprolol
-Repeat echocardiogram in 6-8 weeks to re-assess LVEF. If EF remains < 35%, refer for LUMBER SCALER-D. Life vest for now.
#PAF:
-Currently in rate border line controlled AF.
-h/o JOE thrombus.
-Rate/rhythm control with metoprolol succinate 12.5 mg BID. Hold amiodarone given persistent AFib.
-CHADS2-Vasc = 6 (CHF, HTN, Age x1, CVA x2, vascular disease).
-Therapeutic anticoagulation with apixaban 5 mg BID.
#NSVT
-short runs
-Frequent PVC's, triplets.
-Metoprolol succinate 12.5 mg BID restarted this morning.
-Life-Vest at discharge.
.
#CAD
-Chronic, stable. No angina.
-Continue secondary prevention with aspirin, atorvastatin.
Subjective/Interval History:
Off midodrine with stable BP.
Plan for discharge today with follow up in 1 week.
DATA:
TTE, 12/04/2024:
CONCLUSIONS
Severely reduced left ventricular systolic function.
Left ventricular ejection fraction is 15% by Velásquez's method of discs.
Flattened septum in systole and diastole consistent with RV pressure and volume
overload.
Normal right ventricular size and function.
S/p Sabrina 29 TAVR with peak/mean gradients of 11/6 mmHg. Trace paravalvular
aortic regurgitation.
No significant change since the prior study of 11/24/24.
TAVR, 11/24/2024:
CONCLUSIONS
1. Successful placement of a Ryan Sabrina S3 Ultra 29 mm transcatheter aortic valve via left transfemoral approach with no acute complications.
2. Acute on chronic heart failure with elevated filling pressures (LVEDP = 35).
Right Heart Catheterization, 11/23/2024:
CONCLUSION:
1. Severely elevated filling pressures (PCWP = 35 mmHg at 81.6 kg).
2. Severely depressed cardiac function on dobutamine (cardiac index 1.95 L/min/m� by Sujey, 1.74 L/min/m� by thermodilution), consistent with cardiogenic shock.
3. 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
Coronary angiography, 10/12/2024:
CORONARY ANGIOGRAPHY
Dominance: right
LM: large with mild disease
LAD: large vessel giving rise a moderate caliber D1, large branching D2, and multiple septal perforators. There is a focal 50% stenosis in the proximal aspect of D1. The D2 has eccentric, focal, moderate-severe stenoses proximal to the bifurcation
as well as in the proximal aspects of both limbs. The LAD proper has mild calcific disease proximally, a 50% stenosis just after D2, and a 40% stenosis in the mid-distal vessel.
LCx: Large vessel giving rise to three small-moderate caliber OM branches. There is a 90% stenosis in the proximal vessel. OM 2 is subtotaled proximally. OM3 provides collaterals to the distal RCA.
RCA: Severely diseased through the proximal to mid section with a total occlusion distally. The large RPDA and a large RPL branch are supplied by [id number] collaterals.
Physical Exam
Vital Signs/Labs
Vital Signs
Temp Pulse Resp BP Pulse Ox
37.0 C 88 16 91/53 98
12/01/24 15:26 12/01/24 15:26 12/01/24 15:26 12/01/24 15:26 12/01/24 15:26
11/30/24 12/01/24 12/02/24
06:59 06:59 06:59
Actual Weight 76.7 kg 77.4 kg
11/30/24 04:03
12/01/24 04:04
PT 18.4 Sec (11.4-14.6) H 11/25/24 03:10
INR 1.51 11/25/24 03:10
APTT 101.9 Sec (23.4-35.0) H 11/23/24 23:12
Magnesium 2.0 mg/dl (1.6-2.3) 12/01/24 04:04
11/15/24
08:37
Rhm-G-Rxqpgikhitx Pept [id number]
Physical Exam
Constitutional: No acute distress
Cardiovascular: Rhythm & rate is regular
Respiratory: Respiratory effort normal
Neuro/Psych: AO x 3
Data Reviewed
-
Date of Service: December 01, 2024
Labs: Labs Reviewed by me
--- NOTE | 2024-12-01 17:10 | PTCARENOTE ---
Discharge instructions reviewed. All questions answered. Pt escorted to car via wheelchair. All belongings returned to patient.
== END 2024-12-01 17:20 | disposition home or self-care (01) | DRG 266 ==
LOC: CVICU 07:43
PROVIDERS: Clinical Nurse Specialist Acute Care; Internal Medicine Cardiovascular Disease; Nurse Practitioner; Nurse Practitioner Acute Care; ADMITTING PHYSICIAN Thoracic Surgery (Cardiothoracic Vascular Surgery); ATTENDING PHYSICIAN Thoracic Surgery (Cardiothoracic Vascular Surgery); CONSULT PHYSICIAN Internal Medicine; CONSULT PHYSICIAN Internal Medicine Critical Care Medicine; CONSULT PHYSICIAN Psychiatry & Neurology Clinical Neurophysiology; CONSULT PHYSICIAN Student in an Organized Health Care Education/Training Program; FAMILY PHYSICIAN Internal Medicine
PROC: 03HY32Z Insertion of Monitoring Device into Upper Artery, Percutaneous Approach (ICD-10-PCS; 2024-11-23)
PROC: 4A023N6 Measurement of Cardiac Sampling and Pressure, Right Heart, Percutaneous Approach (ICD-10-PCS; 2024-11-23)
PROC: 3E043XZ Introduction of Vasopressor into Central Vein, Percutaneous Approach (ICD-10-PCS; 2024-11-23)
PROC: 02RF38Z Replacement of Aortic Valve with Zooplastic Tissue, Percutaneous Approach (ICD-10-PCS; 2024-11-24)
DX: I35.0 Nonrheumatic aortic (valve) stenosis (principal); I50.23 Acute on chronic systolic (congestive) heart failure; R57.0 Cardiogenic shock; K72.00 Acute and subacute hepatic failure without coma; I13.0 Hypertensive heart and chronic kidney disease with heart failure and stage 1 through stage 4 chronic kidney disease, or unspecified chronic kidney disease; E87.1 Hypo-osmolality and hyponatremia; N17.9 Acute kidney failure, unspecified; D62 Acute posthemorrhagic anemia; E87.3 Alkalosis; I48.20 Chronic atrial fibrillation, unspecified; I42.8 Other cardiomyopathies; I47.20 Ventricular tachycardia, unspecified; I51.3 Intracardiac thrombosis, not elsewhere classified; R33.9 Retention of urine, unspecified; D69.59 Other secondary thrombocytopenia; N18.9 Chronic kidney disease, unspecified; E11.22 Type 2 diabetes mellitus with diabetic chronic kidney disease; I25.10 Atherosclerotic heart disease of native coronary artery without angina pectoris; I34.0 Nonrheumatic mitral (valve) insufficiency; I36.1 Nonrheumatic tricuspid (valve) insufficiency; E78.00 Pure hypercholesterolemia, unspecified; I27.29 Other secondary pulmonary hypertension; E87.5 Hyperkalemia; J32.0 Chronic maxillary sinusitis; I73.9 Peripheral vascular disease, unspecified; R55 Syncope and collapse; F17.290 Nicotine dependence, other tobacco product, uncomplicated; H40.9 Unspecified glaucoma; M19.90 Unspecified osteoarthritis, unspecified site; G93.89 Other specified disorders of brain; Z22.322 Carrier or suspected carrier of Methicillin resistant Staphylococcus aureus; Z79.01 Long term (current) use of anticoagulants; Z79.82 Long term (current) use of aspirin; Z79.899 Other long term (current) drug therapy; Z86.73 Personal history of transient ischemic attack (TIA), and cerebral infarction without residual deficits; Z87.01 Personal history of pneumonia (recurrent)
CPT/HCPCS: 93308; 33361; 36415; 36600; 70450; 71045; 71046; 80048; 80053; 80076; 81003; 81015; 82043; 82248; 82330; 82570; 82805; 82810; 82962; 83036; 83605; 83735; 83880; 83935; 84132; 84133; 84300; 84302; 85025; 85027; 85347; 85610; 85730; 86850; 86900; 86901; 87070; 87147; 93005; 93306; 93321; 93325; 93451; 93970; 95816; C1760; C1769; C1894; P9045; P9047; Q9967

== ENCOUNTER → 2024-12-25 09:59 | Outpatient (REF) | payer OTHER, SELFPAY | LOC: RCS 09:59 | PROVIDERS: ATTENDING PHYSICIAN Student in an Organized Health Care Education/Training Program; FAMILY PHYSICIAN Internal Medicine | DX: Z95.2 Presence of prosthetic heart valve (principal) | CPT/HCPCS: 93306 ==

== ENCOUNTER → 2024-12-26 11:21 | Outpatient (REF) | payer OTHER, SELFPAY | LOC: HWRAD 11:21 | PROVIDERS: ATTENDING PHYSICIAN Nurse Practitioner Family; FAMILY PHYSICIAN Internal Medicine | DX: R05.3 Chronic cough (principal) | CPT/HCPCS: 71046 ==

== ENCOUNTER 2025-01-08 16:16 | Outpatient (RCR) | payer OTHER, SELFPAY | END 2025-01-08 23:59 | disposition home or self-care (01) | LOC: CRHB 16:16 | PROVIDERS: ATTENDING PHYSICIAN Student in an Organized Health Care Education/Training Program | DX: Z95.4 Presence of other heart-valve replacement | CPT/HCPCS: G0422; G0423 ==

== ENCOUNTER 2025-01-10 07:39 | Outpatient (RCR) | payer OTHER, SELFPAY | END 2025-01-10 23:59 | disposition home or self-care (01) | LOC: CRHB 07:39 | PROVIDERS: ATTENDING PHYSICIAN Student in an Organized Health Care Education/Training Program; FAMILY PHYSICIAN Internal Medicine | DX: Z95.4 Presence of other heart-valve replacement (principal) | CPT/HCPCS: G0422; G0423 ==

== ENCOUNTER 2025-01-10 14:25 | Inpatient (IN) | payer OTHER, SELFPAY ==
[2025-01-10] VITALS (39 sets, daily range): BP systolic 70–133; BP diastolic 47–109
[2025-01-10] MEDS: CARDIZEM 10 MG IV (11:09)
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
[2025-01-10] MEDS: CARDIZEM 125 IV (11:11)
[2025-01-10 11:51] LABS: % Basophils 0.5 % (0-2); % Eosinophils 1.8 % (0-6); % Immature Granulocytes 0.8 % (0-0.5); % Lymphocytes 19.8 % (20.5-51.1); % Monocytes 9.6 % (1.7-9.3); % Neutrophils 67.5 % (42.2-75.2); Absolute Eosinophils 0.1 10^3/uL (0-0.7); Absolute Immature Granulocytes 0.1 10^3/uL (0-0.05); Absolute Lymphocytes 1.2 10^3/uL (1.2-3.4); Absolute Monocytes 0.6 10^3/uL (0.1-0.6); Absolute Neutrophils 4.1 10^3/uL (1.4-6.5); Hematocrit 42.1 % (39.0-52.0); Hemoglobin 13.5 g/dL (13.0-18.0); Mean Corp Hgb Conc. 32.1 g/dL (33.0-37.0); Mean Corpuscular Hgb 25.4 pg (27.0-31.0); Mean Corpuscular Volume 79.1 fL (80.0-94.0); Nucleated Red Blood Cells % 0 % (-); Platelet Count 170 10^3/uL (130-400); Red Blood Cell Count 5.32 10^6/uL (4.70-6.10); White Blood Cell Count 6.1 10^3/uL (4.8-10.8)
[2025-01-10] MEDS: NSS 250 IV (12:00)
[2025-01-10 12:03] LABS: INR 1.52; PT 18.8 Sec (11.4-14.6)
[2025-01-10 12:04] LABS: APTT 34.7 Sec (23.4-35.0)
[2025-01-10 12:18] LABS: Urine Albumin 2+ (Neg - Trace); Urine Bilirubin Negative (Negative); Urine Character Clear (Clear); Urine Color Yellow; Urine Glucose 4+ (Negative); Urine Ketone Negative (Negative); Urine Leukocyte Negative (Negative); Urine Nitrite Negative (Negative); Urine Occult Blood Negative (Negative); Urine Specific Gravity 1.005 (<1.030); Urine Urobilinogen Negative (Neg - 1+)
[2025-01-10 12:29] LABS: Urine Sperm Seen
[2025-01-10 12:30] LABS: Urine Red Blood Cell 0-2 /HPF (0-2)
[2025-01-10 12:30] LABS: ALT (SGPT) 28 U/L (0-50); AST (SGOT) 34 U/L (17-59); Albumin 3.1 g/dl (3.5-5.0); Alkaline Phosphatase 108 U/L (38-126); Blood Urea Nitrogen 27 mg/dl (9-20); Calcium 8.3 mg/dl (8.4-10.2); Carbon Dioxide 26 mmol/L (22-30); Chloride 106 mmol/L (98-107); Glucose 99 mg/dl (70-99); Lipase 75 U/L (23-300); Potassium 3.6 mmol/L (3.5-5.1); Sodium 138 mmol/L (135-145); Total Bilirubin 1.3 mg/dl (0.2-1.3); eGFR > 60.00
[2025-01-10 12:31] LABS: Urine Squamous Cell 0-2 /LPF (Few)
--- NOTE | 2025-01-10 13:34 | EDRN ---
life vest off and the pt is on the ZOLL monitor, the pt is resting in stretcher in the lowest position, side rails up x2, call pierre within reach, HOB elevated, no c/o chest pain, no s/o SOB, VS WNL
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
--- NOTE | 2025-01-10 14:01 | EDRN ---
hospitalist currently at the pts bedside
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
--- NOTE | 2025-01-10 14:53 | EDRN ---
cardiology currently at the pts bedside
[2025-01-10] MEDS: KCL 40 MEQ PO (16:08)
[2025-01-10] MEDS: CORDARONE 103 MG IV (16:27)
--- NOTE | 2025-01-10 16:29 | PTCARENOTE ---
patient arrived from ER, zoll pads on patient, telemetry placed, Afib, with Vtach, VSS. patient is very pleasant, oriented x 3, YAO with purpose. strongly told patient that he will not be OOB, patient needs [facility] equipment/TLSO brace for spinal fx.
patient has abrasions left shoulder, right thigh, bilat. shins and hands. patient doesnot c/o pain. patient arrived on IV Cardizem, Dr. Witt in room, D/C'd IV Cardizem and started IV amiodarone bolus and will follow by an IV drip via left
forearm. 40 KCL po given as ordered. Echo is presently at bedside. able to admit patient, oriented to room and surroundings. patient called .
--- NOTE | 2025-01-10 16:37 | CM ---
CM following for DC planning needs.
Patient known to me from TAVR procedure 11/2024.
Met w/ patient at bedside. Pt. resides w/ spouse in a private, 2 STH w/ 1 LAZARUS. Pt is functionally indep. at baseline w/ ADLs, mobility without the use of any assisted device. Pt. has have a LifeVest at home, which was provided upon DC during last
admission. Pt. is currently at patient at Card[facility].
Antic. DC plan is for home, no needs.
CM to follow.
[2025-01-10] MEDS: CORDARONE 518 MG IV (16:39)
--- NOTE | 2025-01-10 16:42 | PTCARENOTE ---
Echo completed at bedside. IV amiodarone started at 1mg/min. via left arm, infusing well.
--- NOTE | 2025-01-10 17:00 | PTCARENOTE ---
community board member Ermelinda will call or fax [facility] equipment for a TLSO brace for patients spinal FX.
[2025-01-10] MEDS: LIPITOR 40 MG PO (17:38)
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
[2025-01-10] MEDS: TYLENOL 650 MG PO (20:46)
[2025-01-10] MEDS: TOPROL XL 12.5 MG PO (20:46)
[2025-01-10] MEDS: ENTRESTO 24 MG/26 MG 1 TAB PO (20:46)
[2025-01-11] VITALS (41 sets, daily range): BP systolic 83–119; BP diastolic 61–99; PULSE 2–90; BMI 24.3
[2025-01-11 05:22] LABS: Hematocrit 39.5 % (39.0-52.0); Hemoglobin 12.4 g/dL (13.0-18.0); Mean Corp Hgb Conc. 31.4 g/dL (33.0-37.0); Mean Corpuscular Hgb 24.8 pg (27.0-31.0); Mean Corpuscular Volume 79.2 fL (80.0-94.0); Mean Platelet Volume 10.7 fL (7.4-10.4); Platelet Count 160 10^3/uL (130-400); Red Blood Cell Count 4.99 10^6/uL (4.70-6.10); Red Cell Dist. Width 18.5 % (11.5-14.5); White Blood Cell Count 5.8 10^3/uL (4.8-10.8)
[2025-01-11 05:52] LABS: Blood Urea Nitrogen 30 mg/dl (9-20); Calcium 8.8 mg/dl (8.4-10.2); Carbon Dioxide 22 mmol/L (22-30); Chloride 104 mmol/L (98-107); Estimated Creatinine Clearance 63 ml/min; Glucose 104 mg/dl (70-99); Magnesium 2.2 mg/dl (1.6-2.3); Potassium 4.8 mmol/L (3.5-5.1); Sodium 137 mmol/L (135-145); eGFR > 60.00
[2025-01-11] MEDS: KCL 20 MEQ PO (09:45)
[2025-01-11] MEDS: PROTONIX 40 MG PO (09:45)
[2025-01-11] MEDS: BUMEX PO (09:54)
[2025-01-11] MEDS: TOPROL XL 12.5 MG PO (09:55)
[2025-01-11] MEDS: ENTRESTO 24 MG/26 MG PO (09:55)
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
--- NOTE | 2025-01-11 12:11 | PTCARENOTE ---
Pt cleansed with 2% CHG wipes early this morning and again at 1100. Pt was fitted for back brace form rep from [facility]. He is NPO except meds for BiVICD today
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
[2025-01-11 16:50] LABS: Glucose - Point of Care 100 mg/dl (70-99)
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
--- NOTE | 2025-01-11 17:05 | PTCARENOTE ---
Pt transferred to ICU s/p AICD placement, report given to RN, Rj in ICU.
[2025-01-11 17:29] LABS: B.E. -8.6 mmol/L; O2 Saturation % 99.9 % (94-98); PCO2 27 mmHg (35-48); PO2 142 mmHg (83-108); pH 7.36 (7.35-7.45)
--- NOTE | 2025-01-11 17:31 | W.PN.UPDATE ---
Update Note
Progress Note Update
It was decided for the patient to proceed to BIV ICD implant this afternoon by cardiology team given his high risk for both intermittent AV block and VT. We were updated by cardiology team that the procedure successfully completed but the patient
developed hypotension while getting ready to transfer to the service. He was considered having cardiogenic shock and was started on vasopressors and was transferred to ICU. When he was arrived to the ICU, he was not responsive to verbal/physical
stimulus. Therefore he was obtained a head CT. He was planned to be placed on BIPAP to maintain his saturation by ICU team.
[2025-01-11 17:45] LABS: HCO3 15.3 mmol/L (21-28)
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
[2025-01-11] MEDS: KEPPRA 1000 MG IV (17:48)
[2025-01-11] MEDS: FARXIGA PO (17:48)
[2025-01-11] MEDS: LIPITOR PO (17:48)
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
--- NOTE | 2025-01-11 18:54 | W.PN.UPDATE ---
Update Note
Progress Note Update
Evaluated patient at bedside after ICD implant. Severe hypotension requiring pressors (levophed): threat to life. Patient does not respond to stimuli.
Echo shows EF less than 10%.
Possible prolonged anesthesia effect vs cardiogenic shock, vs other.
Plan is head CT, labs.
If no improvement, or evidence of end organ dysfunction on labs, will start milrinone 0.125. May need to increase levophed in that case due to inodilator effect.
Discussed with critical care team at bedside, including MD and EDUCATIONAL AID.
Discussed with family at bedside.
CCT 35 min.
[2025-01-11 19:00] LABS: Hematocrit 43.5 % (39.0-52.0); Hemoglobin 13.6 g/dL (13.0-18.0); Mean Corp Hgb Conc. 31.3 g/dL (33.0-37.0); Mean Corpuscular Volume 80.1 fL (80.0-94.0); Mean Platelet Volume 10.2 fL (7.4-10.4); Platelet Count 173 10^3/uL (130-400); Red Blood Cell Count 5.43 10^6/uL (4.70-6.10); Red Cell Dist. Width 19.1 % (11.5-14.5); White Blood Cell Count 6.3 10^3/uL (4.8-10.8)
[2025-01-11 19:10] LABS: Ammonia < 9 umol/L (9-30)
--- NOTE | 2025-01-11 19:44 | PTCARENOTE ---
Pt arrived to ICU from EP lab s/p AICD/Packemaker placement. Pt unresponsive. Pupils pinpoint. NIHSS performed, resulting 40 for unresponsiveness. Ataxia maked 0 for unresponsiveness per assessment guidelines. Dr. Johnston at bedside to assess.
Oropharyngeal airway in place. BiPAP placed on pt; 09/15; 4L. Diminished breath sounds. Pt with Edu-stoke breathing. SaO2 > 95%. 100% V Paced on bevel mill operator. HR 90s. Received with Levophed gtt infusing @ 6 mcg/min with goal MAP > 65. Trace
anasarca. Weak pedal pulses. Bladder scanned for 302ml. No void observed. Incontinence pad placed. Hypoactive bowel sounds. Ordered labs drawn and sent.
[2025-01-11] MEDS: ANCEF 5 IV (20:11)
--- NOTE | 2025-01-11 20:30 | W.PN.UPDATE ---
Update Note
Progress Note Update
01/11/25 at 1900
Patient continues to be unresponsive. Labs obtained to evaluate end organ damage, suspect hypotension and low flow state due to underlying EF of 10% compounded with anesthesia. Ctscan of the head obtained and negative for acute intracranial
abnormalities. Patient not responsive to noxious stimuli, remains on BIPAP. Discussed case with Dr. Johnston, pony rougher and Dr. Light, research advisor. at bedside updated by Dr. Johnston and Dr. Light, answered all questions. Dr. Light
recommendations received: could initiate milrinone to help with perfusion to organs. Although milrinone could also cause additional hypotension, patient is on levophed gtt with ability to titrate and increase as needed.
1999 Dr. Vargas, neurologist, updated patient is not waking up, not responsive to noxious stimuli. Recommended for complete work up to obtain CTA head and neck to rule out stroke or embolization (particularly to the basal artery or brain stem).
Keppra had been given for any possible seizure activity due to hypotension/low flow state. Plan for tomorrow will be EEG and MRI of the brain if unresponsiveness persists. During transportation to CTA scan, patient was noted to be moving
extremities. When patient arrived back from CTA scan, he was able to move extremities and did answer simple questions although confused and now impulsive attempting to get out of bed and rip off BIPAP mask. Attempted to make patient comfortable by
just using nasal cannula instead of BIPAP, however became apneic. Therefore due to apnea, BIPAP will be continued. Patient's Hafsa called and updated that patient was now awake and responding and thanked me for the update.
[2025-01-11 20:37] LABS: ALT (SGPT) 345 U/L (0-50); AST (SGOT) 434 U/L (17-59); Albumin 3.4 g/dl (3.5-5.0); Alkaline Phosphatase 104 U/L (38-126); Blood Urea Nitrogen 31 mg/dl (9-20); Calcium 8.4 mg/dl (8.4-10.2); Carbon Dioxide 20 mmol/L (22-30); Chloride 105 mmol/L (98-107); Estimated Creatinine Clearance 57 ml/min; Glucose 123 mg/dl (70-99); Potassium 6.1 mmol/L (3.5-5.1); Sodium 135 mmol/L (135-145); Total Bilirubin 2.3 mg/dl (0.2-1.3); Total Protein 6.6 g/dl (6.3-8.2); eGFR > 60.00
[2025-01-11 20:45] LABS: TSH Reflex To Free T4 2.18 uIU/ml (0.47-4.68)
[2025-01-11] MEDS: SODIUM BICARBONATE 50 MEQ IV (21:17)
[2025-01-11] MEDS: DEXTROSE 50% SYRINGE 25 GRAMS IV (21:18)
[2025-01-11] MEDS: NOVOLIN R 10 UNITS IV (21:18)
[2025-01-11 21:27] LABS: Glucose - Point of Care 112 mg/dl (70-99)
[2025-01-11] MEDS: PRIMACOR 20 MG 100 IV (21:43)
--- NOTE | 2025-01-11 22:08 | PTCARENOTE ---
Assumed care of pt at 1900. At start of shift pt unresponsive to all stimuli, GCS of 3, oral pharyngeal airway in place along with Bipap 12/5 with O2 at 4LPM. Pt 100% V paced on monitor with HR in 90s. On Levophed at 6mcg/min. NIHSS done, pt scored
a 40 due to being unresponsive. Stat CTA head/neck ordered and pt taken down around 2029. Just before getting into the CT room pt opened his eyes and was attempting to pull the bipap mask off. Pt able to state his name but when asked where he was he
stated '[place]'. CTA done, back to room around 2049. When asked again, pt is oriented to self but not to place/time/situation. Attempted to do NIHSS again but unable to accurately perform the exam--pt is able to follow simple commands but is
having a difficult time staying awake enough to carry out the test items. Pt able to move his extremities (LUE currently in an immobilizer s/p AICD/pacemaker placement, unable to test), muscle strength in RUE, LLE, RLE are all 4-5/5. Attempted to
switch pt from bipap mask to regular nasal cannula but pt has been having periods of apnea lasting several seconds each time, frequently triggering the apnea alarm on the monitor. Pt placed back on bipap. K+ elevated, treated with IV
insulin/D50/sodium bicarb, see EMAR for details. Milrinone infusion started (see EMAR). VAT team currently at bedside to place PICC line.
--- NOTE | 2025-01-11 22:08 | PTCARENOTE ---
Assumed care of pt at 1900. At start of shift pt unresponsive to all stimuli, GCS of 3, oral pharyngeal airway in place along with Bipap 12/5 with O2 at 4LPM. Pt 100% V paced on monitor with HR in 90s. On Levophed at 6mcg/min. NIHSS done, pt scored
a 40 due to being unresponsive. Stat CTA head/neck ordered and pt taken down around 2029. Just before getting into the CT room pt opened his eyes and was attempting to pull the bipap mask off. Pt able to state his name but when asked where he was he
stated '[place]'. CTA done, back to room around 20 When asked again, pt is oriented to self but not to place/time/situation. Attempted to do NIHSS again but unable to accurately perform the exam--pt is able to follow simple commands but is
having a difficult time staying awake enough to carry out the test items. Pt able to move his extremities (LUE currently in an immobilizer s/p AICD/pacemaker placement, unable to test), muscle strength in RUE, LLE, RLE are all 4-5/5. Attempted to
switch pt from bipap mask to regular nasal cannula but pt has been having periods of apnea lasting several seconds each time, frequently triggering the apnea alarm on the monitor. Pt placed back on bipap. K+ elevated, treated with IV
insulin/D50/sodium bicarb, see EMAR for details. Milrinone infusion started (see EMAR). VAT team currently at bedside to place PICC line.
[2025-01-11 22:53] LABS: Glucose - Point of Care 132 mg/dl (70-99)
[2025-01-11 23:44] LABS: Glucose - Point of Care 137 mg/dl (70-99)
[2025-01-12] VITALS (46 sets, daily range): BP systolic 75–140; BP diastolic 60–124; PULSE 2–97; BMI 24.7
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
[2025-01-12] MEDS: LEVOPHED 250 IV (01:17)
[2025-01-12 01:31] LABS: Glucose - Point of Care 142 mg/dl (70-99)
[2025-01-12 03:19] LABS: Glucose - Point of Care 142 mg/dl (70-99)
[2025-01-12] MEDS: ANCEF 5 IV (04:10)
[2025-01-12 04:43] LABS: Hematocrit 35.7 % (39.0-52.0); Hemoglobin 11.4 g/dL (13.0-18.0); Mean Corp Hgb Conc. 31.9 g/dL (33.0-37.0); Mean Corpuscular Hgb 25.1 pg (27.0-31.0); Mean Corpuscular Volume 78.5 fL (80.0-94.0); Mean Platelet Volume 10.7 fL (7.4-10.4); Platelet Count 120 10^3/uL (130-400); Red Blood Cell Count 4.55 10^6/uL (4.70-6.10); White Blood Cell Count 4.7 10^3/uL (4.8-10.8)
[2025-01-12 04:44] LABS: B.E. -2.9 mmol/L; HCO3 20.8 mmol/L (21-28); O2 Saturation % 98.9 % (94-98); PCO2 32 mmHg (35-48); PO2 89 mmHg (83-108); pH 7.42 (7.35-7.45)
[2025-01-12 04:45] LABS: O2 Therapy BIPAP
[2025-01-12 04:55] LABS: Lactic Acid 1.3 mmol/L (0.7-2.0)
[2025-01-12 05:02] LABS: Albumin 2.9 g/dl (3.5-5.0); Alkaline Phosphatase 95 U/L (38-126); Blood Urea Nitrogen 33 mg/dl (9-20); Calcium 8.5 mg/dl (8.4-10.2); Carbon Dioxide 25 mmol/L (22-30); Chloride 106 mmol/L (98-107); Estimated Creatinine Clearance 63 ml/min; Glucose 121 mg/dl (70-99); Magnesium 2.2 mg/dl (1.6-2.3); Potassium 5.1 mmol/L (3.5-5.1); Sodium 137 mmol/L (135-145); Total Bilirubin 1.5 mg/dl (0.2-1.3); Total Protein 5.7 g/dl (6.3-8.2); eGFR > 60.00
[2025-01-12 05:17] LABS: ALT (SGPT) 822 U/L (0-50); AST (SGOT) 925 U/L (17-59)
--- NOTE | 2025-01-12 06:12 | PTCARENOTE ---
Assessment unchanged. Pt awakens spontaneously or to voice/light tactile stimuli. GCS 14 for confused conversation--pt is still not oriented to place, time, or situation and needs to be reoriented. Pt unaware that he had a pacer/AICD placed even
after being reminded several times. However, pt is pleasant and cooperative with care, able to follow all commands, able to move all extremities with 5/5 strength (LUE not texted d/t immobilizer). Pt bladder scanned again around 0530 since he had
not voided since being straight cathed, pt ended up being able to void in the urinal afterwards (see bladder scan flowsheet/I&O flowsheet for details). 100% V paced on monitor with HR in 90s. Bipap mask removed around 0530 and pt placed on 2LNC,
maintaining SpO2 96%. Pt's respirations have been regular for the last several hours, no longer exhibiting Edu Camp respirations.
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
--- NOTE | 2025-01-12 08:34 | W.PN.UPDATE ---
Update Note
Progress Note Update
EP Update
Pt alert and oriented X3. No neurologic deficits. ICD site is normal. Pressure dressing removed. No hematoma or bleeding. CXR/EKG good. Device remote check is very good RV/LV lead thresholds are less than 1 V.
Once LFTs normalize consider starting Amiodarone 400 BID for 14 days then 200 mg a day and if AFib persists proceed with Cardioversion in 1 month.
[2025-01-12] MEDS: PROTONIX 40 MG PO (08:45)
[2025-01-12] MEDS: BUMEX 2 MG PO (08:45)
[2025-01-12] MEDS: FARXIGA 10 MG PO (08:45)
--- NOTE | 2025-01-12 08:47 | PTCARENOTE ---
Pt received in bed @ 0700. AAOx3. Responsive to all stimuli. Intermittent confusion. NIHSS 2 for stating wrong age (pt stated he was 70 years old), and mild aphasia for occasional wrong word choice. Pupils 2mm and reactive to light. Pt able to
communicate situation that brought him to hospital and that he required pacemaker placement. 100% V Paced on cytopathology technologist. Left chest wall with pressure dressing. Left arm immobilizer in place. Midodrine 0.125 mcg/kg/min infusing. Trace
anasarca. Pedal and radial pulses palpable. SaO2 96% on 2L NC. Passed bedside swallow eval. Diet upgraded; pt tolerated PO intake. (R) DL PICC in place.
--- NOTE | 2025-01-12 09:29 | W.PN.ANS.POP ---
Anesthesia Post Operative
- Anesthesia Post Op Note
Vital Signs Stable-See Nursing Note: Yes (patient on milrinone infusion)
Airway Patent: Yes
Adequate Pain Control: Yes
Change in Mental Status: No
Current Postoperative Nausea & Vomiting: No
Anesthesia Complications: No
General Anesthetic Recall: No
Unplanned Admission: No
Post Op Hydration Adequate: Yes
[2025-01-12] MEDS: LIDOCAINE 4% PATCH 1 PATCH TOPICAL (11:40)
[2025-01-12] MEDS: TIMOPTIC 0.5% OPHTHALMIC SOLUTION 1 DROP BOTH EYES ×2 (11:40→21:06)
[2025-01-12] MEDS: TRUSOPT 2% OPHTHALMIC SOLUTION 1 DROP BOTH EYES ×2 (11:40→21:06)
--- NOTE | 2025-01-12 11:56 | PTCARENOTE ---
Pt reassessed. Immobilizer and pressure dressing removed by Cardiology. Pt voided 400ml yellow into urinal. Lidocaine patch applied to lower back. Pt with new orders for IVU.
[2025-01-12 13:24] LABS: Creatine Phosphokinase 374 U/L (55-170)
[2025-01-12 14:10] LABS: Free T4 2.31 ng/dl (0.78-2.19)
[2025-01-12] MEDS: KEPPRA 500 MG PO ×2 (14:10→21:06)
[2025-01-12 14:24] LABS: TSH 1.74 uIU/ml (0.47-4.68)
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
--- NOTE | 2025-01-12 14:33 | PTCARENOTE ---
Pt oob to chair with assist x1. Back brace applied for transfer to chair.
--- NOTE | 2025-01-12 15:19 | CM ---
CM following re: discharge planning.
Reviewed pt's chart, met with pt.
Pt. resides w/ spouse in a private, 2 STH w/ 1 LAZARUS. Pt is functionally independent at baseline w/ ADLs, mobility without the use of any assisted device. Pt. is currently with outpatient Cardiac Rehab.
Per chart review, pt has been clinically improved and will be transferred to IVU.
D/C plan: home with resumptions of cardiac rehab vs home no needs.
CM will follow with discharge plan updates as hospitalization progresses
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
[2025-01-12] MEDS: LOW STRENGTH ASPIRIN 81 MG PO (17:00)
--- NOTE | 2025-01-12 17:06 | PTCARENOTE ---
Pt hypotensive in chair. BP 75/65; MAP 70. HR 112. Pt denying any symptoms. Assisted back to bed. Pt steady on feet. Denied any symptoms. Follow up BP in bed 91/69. New order to stop Milrinone gtt; gtt discontinued.
--- NOTE | 2025-01-12 22:25 | PTCARENOTE ---
Assumed care of pt at 1900. Pt is A/O x4, pleasant and cooperative with care. No neurological deficits at this time, NIHSS done, pt scored a 0. Able to ambulate to BR with standby assistance to brush his teeth and void in urinal. 100% V paced on
monitor with HR in 90s-110s. SpO2 100% on RA. See nursing shift assessment flowsheet for full physical assessment details. Call pierre and personal items within reach. Bed alarm activated.
[2025-01-13] VITALS (20 sets, daily range): BP systolic 74–124; BP diastolic 62–97; PULSE 2–103; O2SAT 98; BMI 24.6
[2025-01-13 03:55] LABS: Hematocrit 34.3 % (39.0-52.0); Mean Corp Hgb Conc. 32.1 g/dL (33.0-37.0); Mean Platelet Volume 10.8 fL (7.4-10.4); Platelet Count 134 10^3/uL (130-400); White Blood Cell Count 13.3 10^3/uL (4.8-10.8)
[2025-01-13 04:17] LABS: ALT (SGPT) 688 U/L (0-50); AST (SGOT) 640 U/L (17-59); Albumin 2.8 g/dl (3.5-5.0); Alkaline Phosphatase 99 U/L (38-126); Blood Urea Nitrogen 42 mg/dl (9-20); Calcium 8.5 mg/dl (8.4-10.2); Carbon Dioxide 25 mmol/L (22-30); Chloride 103 mmol/L (98-107); Estimated Creatinine Clearance 57 ml/min; Glucose 101 mg/dl (70-99); Iron 36 ug/dl (49-181); Potassium 4.9 mmol/L (3.5-5.1); Sodium 134 mmol/L (135-145); Total Bilirubin 1.2 mg/dl (0.2-1.3); Total Protein 5.7 g/dl (6.3-8.2); eGFR > 60.00
[2025-01-13 04:36] LABS: Percent Saturation 10 % (20-50); Total Iron Binding Capacity 354 ug/dl (261-462)
[2025-01-13 04:50] LABS: Ferritin 62.9 ng/ml (17.9-464.0)
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
[2025-01-13] MEDS: LIDOCAINE 4% PATCH 1 PATCH TOPICAL (08:06)
[2025-01-13] MEDS: BUMEX 2 MG PO (08:06)
[2025-01-13] MEDS: KEPPRA 500 MG PO ×2 (08:06→19:52)
[2025-01-13] MEDS: PROTONIX 40 MG PO (08:06)
[2025-01-13] MEDS: LOW STRENGTH ASPIRIN 81 MG PO (08:06)
[2025-01-13] MEDS: TIMOPTIC 0.5% OPHTHALMIC SOLUTION 1 DROP BOTH EYES ×2 (08:07→20:56)
[2025-01-13] MEDS: TRUSOPT 2% OPHTHALMIC SOLUTION 1 DROP BOTH EYES ×2 (08:07→19:56)
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
--- NOTE | 2025-01-13 10:00 | PTCARENOTE ---
Assumed care of patient at 0645. Assessment completed and documented in shift assessment.
Patient is AAOX4, pleasant and cooperative. Uses call pierre appropriately (disarmed bed alarm at this time - this RN feels he's been appropriate). L CW surgicel with old drainage, otherwise CDI. Remains V-paced on the monitor. OOB with TLSO brace to
chair. Completed CHG bath with assistance of his .
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
--- NOTE | 2025-01-13 16:31 | PTCARENOTE ---
01/13/25 1620 Received patient from ICU via wheelchair. Pt ambulated to chair with TLSO brace on. Pt with steady gait. Pt with no complaints of headache, dizziness, chest pain or palpitations. Pt placed on impregnator carbon products in V-paced rhythm, 99% on
room air. Pt oriented to room and surroundings. All questions were answered, support given.
--- NOTE | 2025-01-13 17:53 | PTCARENOTE ---
01/13/25 1700 Pt's BP on arrival to unit was 84/71 in LUE. Pt's BP remained SBP in 80's. Attending made aware. Repeat BP sitting up in chair was 83/69, laying down in bed 86/73. Pt is asymptomatic. Md aware, No further orders at this time.
[2025-01-13] MEDS: ELIQUIS 5 MG PO (19:52)
[2025-01-13] MEDS: FLUSH (NSS) 1 FLUSH IV ×2 (19:53→20:57)
[2025-01-14] VITALS (10 sets, daily range): BP systolic 82–104; BP diastolic 57–80; PULSE 99–107; BMI 24.3
--- NOTE | 2025-01-14 00:17 | PTCARENOTE ---
Received pt at change of shift. Left chest wall surgical site with dressing dry and intact. V paced, in the 90's on the monitor. BP was 86/76. Manual BP completed-86/62. Pt asymptomatic. Massiel Keating NP made aware. No further orders at this time.
Educated pt to update RN with any changes. Call pierre within reach. Placed on BiPAP by respiratory. Comfort measures provided.
[2025-01-14 05:05] LABS: Hematocrit 34.3 % (39.0-52.0); Mean Corp Hgb Conc. 32.1 g/dL (33.0-37.0); Mean Platelet Volume 10.2 fL (7.4-10.4); Platelet Count 126 10^3/uL (130-400); Red Cell Dist. Width 18.1 % (11.5-14.5)
[2025-01-14 05:42] LABS: ALT (SGPT) 611 U/L (0-50); AST (SGOT) 408 U/L (17-59); Albumin 2.6 g/dl (3.5-5.0); Alkaline Phosphatase 103 U/L (38-126); Blood Urea Nitrogen 34 mg/dl (9-20); Carbon Dioxide 29 mmol/L (22-30); Chloride 103 mmol/L (98-107); Estimated Creatinine Clearance 69 ml/min; Glucose 81 mg/dl (70-99); Potassium 3.9 mmol/L (3.5-5.1); Sodium 136 mmol/L (135-145); Total Bilirubin 1.1 mg/dl (0.2-1.3); Total Protein 5.3 g/dl (6.3-8.2); eGFR > 60.00
--- NOTE | 2025-01-14 06:11 | PTCARENOTE ---
pt slept well overnight. wore BiPAP until 0330. Vpaced in the 90s on the monitor. BP this AM 84/67. asymptomatic. Pt denies any lightheadedness. Up to standing scale. CHG wipes completed. instructed to call for assistance. call pierre within reach.
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
[2025-01-14] MEDS: PROTONIX 40 MG PO (09:08)
[2025-01-14] MEDS: KEPPRA 500 MG PO ×2 (09:08→19:44)
[2025-01-14] MEDS: TRUSOPT 2% OPHTHALMIC SOLUTION 1 DROP BOTH EYES ×2 (09:08→19:44)
[2025-01-14] MEDS: BUMEX 2 MG PO (09:08)
[2025-01-14] MEDS: TIMOPTIC 0.5% OPHTHALMIC SOLUTION 1 DROP BOTH EYES ×2 (09:08→19:44)
[2025-01-14] MEDS: ELIQUIS 5 MG PO ×2 (09:08→19:44)
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
[2025-01-14] MEDS: LIDOCAINE 4% PATCH TOPICAL (13:59)
[2025-01-14] MEDS: MIRALAX 17 GRAMS PO (16:03)
--- NOTE | 2025-01-14 16:55 | PTCARENOTE ---
01/14/25 Received patient from previous shift in bed resting comfortably. Pt denies any chest pain, palpitations, or shortness of breath. Pt on cardiac nurse specialist V-paced. VSS. Pt on room air 95%. Pt worked with OT today, Pt OOB chair with TLSO brace on.
Pt received Miralax for constipation. Pt for labs in AM.
--- NOTE | 2025-01-14 20:48 | PTCARENOTE ---
Patient received at change of shift out of bed to the chair. TSLO brace in place. Vpaced on telemetry. Left anterior chest wall aquacell intact, small amount of old drainage noted. Radial pulse palpable. Discussed activity restrictions following
BiV-ICD placement. Denies chest pain. Denies feeling lightheaded or dizzy. RUE double lumen PICC in place, positive blood return. CHG bath completed. Full bed change completed. Plan of care discussed. Call pierre within reach. Care ongoing.
[2025-01-15] VITALS (17 sets, daily range): BP systolic 82–103; BP diastolic 61–80; PULSE 2–109; BMI 24.3
[2025-01-15 04:02] LABS: Hematocrit 36.2 % (39.0-52.0); Hemoglobin 11.5 g/dL (13.0-18.0); Mean Corp Hgb Conc. 31.8 g/dL (33.0-37.0); Mean Corpuscular Hgb 24.6 pg (27.0-31.0); Mean Corpuscular Volume 77.4 fL (80.0-94.0); Mean Platelet Volume 10.6 fL (7.4-10.4); Platelet Count 147 10^3/uL (130-400); Red Blood Cell Count 4.68 10^6/uL (4.70-6.10); White Blood Cell Count 6.3 10^3/uL (4.8-10.8)
[2025-01-15 04:30] LABS: ALT (SGPT) 583 U/L (0-50); AST (SGOT) 335 U/L (17-59); Albumin 2.8 g/dl (3.5-5.0); Alkaline Phosphatase 106 U/L (38-126); Blood Urea Nitrogen 36 mg/dl (9-20); Calcium 8.2 mg/dl (8.4-10.2); Carbon Dioxide 31 mmol/L (22-30); Chloride 102 mmol/L (98-107); Estimated Creatinine Clearance 86 ml/min; Glucose 93 mg/dl (70-99); Potassium 3.8 mmol/L (3.5-5.1); Sodium 137 mmol/L (135-145); Total Bilirubin 1.4 mg/dl (0.2-1.3); Total Protein 5.5 g/dl (6.3-8.2); eGFR > 60.00
[2025-01-15] MEDS: MIRALAX 17 GRAMS PO (07:41)
[2025-01-15] MEDS: KEPPRA 500 MG PO ×2 (07:41→21:20)
[2025-01-15] MEDS: PROTONIX 40 MG PO (07:41)
[2025-01-15] MEDS: BUMEX 2 MG PO (07:42)
[2025-01-15] MEDS: ASPIR LOW (ENTERIC COATED) 81 MG PO (07:42)
[2025-01-15] MEDS: ELIQUIS 5 MG PO ×2 (07:42→21:20)
[2025-01-15] MEDS: LIDOCAINE 4% PATCH TOPICAL (07:42)
[2025-01-15] MEDS: TRUSOPT 2% OPHTHALMIC SOLUTION 1 DROP BOTH EYES ×2 (07:43→21:20)
[2025-01-15] MEDS: TIMOPTIC 0.5% OPHTHALMIC SOLUTION 1 DROP BOTH EYES ×2 (07:43→21:34)
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
[2025-01-15] MEDS: PACERONE 400 MG PO ×2 (09:33→21:33)
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
[2025-01-15] MEDS: DULCOLAX 10 MG RECTAL (10:23)
[2025-01-15] MEDS: SENOKOT-S 1 TABLET PO (10:23)
--- NOTE | 2025-01-15 10:28 | PTCARENOTE ---
Assumed care at 0700. AOx3, pleasant. 100% vpaced on telemetry, HR 80s at rest, 110s w/ activity and has bursts into 140s of wide complex, vpaced rhythm. VSS w/ SBPs 90s-100s. Denies cardiac symptoms. Complains of constipation, reporting last BM was
'Wednesday or .' Medicated w/ PRN bowel regimen. Resident Dr. Muniz at bedside.
--- NOTE | 2025-01-15 13:27 | PTCARENOTE ---
Able to have large formed BM. Patient reports much relief.
--- NOTE | 2025-01-15 23:12 | PTCARENOTE ---
received patient at the change of shift. AAOx3. resting in the chair. denies any complaints. Vpaced on tele with underlying Afib- 90s. PVCs noted. bp on the lower side- 80s-low 90s/60s-70s. updated Dr. Amado via TT. patient due to receive PM dose of
Entresto and Amiodarone. via telephone order, per Dr. Amado, discontinue Entresto. okay to give Amio dose, see mar. patient asymptomatic with lower bps. ambulated to the bathroom with no issues. denies any lightheadedness/dizziness. L chest site
CDI. TSLO brace when oob. reviewed plan of care with patient and verbalized understanding. call pierre within reach. makes needs known.
[2025-01-16 05:01] VITALS: BP 92/75
[2025-01-16 05:28] LABS: Hematocrit 38.2 % (39.0-52.0); Hemoglobin 12.1 g/dL (13.0-18.0); Mean Corp Hgb Conc. 31.7 g/dL (33.0-37.0); Mean Corpuscular Hgb 24.6 pg (27.0-31.0); Mean Corpuscular Volume 77.8 fL (80.0-94.0); Mean Platelet Volume 10.4 fL (7.4-10.4); Platelet Count 142 10^3/uL (130-400); Red Blood Cell Count 4.91 10^6/uL (4.70-6.10); Red Cell Dist. Width 18.2 % (11.5-14.5); White Blood Cell Count 6.1 10^3/uL (4.8-10.8)
[2025-01-16 05:44] LABS: ALT (SGPT) 439 U/L (0-50); AST (SGOT) 181 U/L (17-59); Albumin 2.8 g/dl (3.5-5.0); Alkaline Phosphatase 112 U/L (38-126); Blood Urea Nitrogen 32 mg/dl (9-20); Calcium 8.3 mg/dl (8.4-10.2); Carbon Dioxide 31 mmol/L (22-30); Chloride 101 mmol/L (98-107); Estimated Creatinine Clearance 86 ml/min; Glucose 92 mg/dl (70-99); Sodium 137 mmol/L (135-145); Total Bilirubin 1.4 mg/dl (0.2-1.3); Total Protein 5.5 g/dl (6.3-8.2); eGFR > 60.00
[2025-01-16 06:00] VITALS: BMI 24.0
[2025-01-16 06:47] VITALS: BP 106/71
[2025-01-16] MEDS: BUMEX 2 MG PO (08:23)
[2025-01-16] MEDS: FLUSH (NSS) 1 FLUSH IV (08:23)
[2025-01-16] MEDS: KEPPRA 500 MG PO (08:23)
[2025-01-16] MEDS: PACERONE 400 MG PO (08:24)
[2025-01-16] MEDS: TIMOPTIC 0.5% OPHTHALMIC SOLUTION 1 DROP BOTH EYES (08:24)
[2025-01-16] MEDS: LIDOCAINE 4% PATCH TOPICAL (08:24)
[2025-01-16] MEDS: PROTONIX 40 MG PO (08:24)
[2025-01-16] MEDS: ELIQUIS 5 MG PO (08:24)
[2025-01-16] MEDS: TRUSOPT 2% OPHTHALMIC SOLUTION 1 DROP BOTH EYES (08:25)
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
[2025-01-16 08:41] LABS: % Basophils 0.5 % (0-2); % Eosinophils 5.6 % (0-6); % Immature Granulocytes 0.3 % (0-0.5); % Lymphocytes 23.3 % (20.5-51.1); % Monocytes 9.3 % (1.7-9.3); Absolute Eosinophils 0.3 10^3/uL (0-0.7); Absolute Lymphocytes 1.3 10^3/uL (1.2-3.4); Absolute Monocytes 0.5 10^3/uL (0.1-0.6); Absolute Neutrophils 3.5 10^3/uL (1.4-6.5); Hematocrit 36.8 % (39.0-52.0); Hemoglobin 11.8 g/dL (13.0-18.0); Mean Corp Hgb Conc. 32.1 g/dL (33.0-37.0); Mean Corpuscular Hgb 24.8 pg (27.0-31.0); Mean Corpuscular Volume 77.5 fL (80.0-94.0); Mean Platelet Volume 10.7 fL (7.4-10.4); Nucleated Red Blood Cells % 0 % (-); Platelet Count 142 10^3/uL (130-400); Red Blood Cell Count 4.75 10^6/uL (4.70-6.10); Red Cell Dist. Width 18.2 % (11.5-14.5); White Blood Cell Count 5.7 10^3/uL (4.8-10.8)
[2025-01-16 08:57] LABS: ALT (SGPT) 447 U/L (0-50); AST (SGOT) 177 U/L (17-59); Albumin 3.2 g/dl (3.5-5.0); Alkaline Phosphatase 119 U/L (38-126); Blood Urea Nitrogen 30 mg/dl (9-20); Calcium 8.5 mg/dl (8.4-10.2); Carbon Dioxide 28 mmol/L (22-30); Chloride 100 mmol/L (98-107); Estimated Creatinine Clearance 86 ml/min; Glucose 88 mg/dl (70-99); Potassium 3.9 mmol/L (3.5-5.1); Sodium 135 mmol/L (135-145); Total Bilirubin 1.5 mg/dl (0.2-1.3); Total Protein 6.1 g/dl (6.3-8.2); eGFR > 60.00
--- NOTE | 2025-01-16 09:15 | PTCARENOTE ---
The patient is aaox3, vital signs are stable. V-pacing with underlying Afib is noted on the monitor. His left chest wall dressing is intact with old scant drainage. Some surrounding ecchymosis is noted surrounding the dressing. He has no complaints
of pain, discomfort, dizziness, or lightheadedness. Activity restrictions for the next month was reviewed with the patient.
[2025-01-16 10:55] VITALS: BP 98/68
[2025-01-16] MEDS: ENTRESTO 24 MG/26 MG 1 TAB PO (11:00)
[2025-01-16] MEDS: TOPROL XL 12.5 MG PO (11:01)
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
[2025-01-16 15:11] VITALS: BP 83/65
--- NOTE | 2025-01-16 15:17 | PN.CDI ---
CDI
- -
CDI:
Physician Documentation Request
Admit Date: 01/10/25 14:25
Dear Doctor Flavio,
01/11 Hospitalist update note states 'Notified by EP cardiology that post procedure is patient unresponsive.'
Nursing note states 'BiPAP placed on pt....Diminished breath sounds'
[place] Technician note states '[place] breathing.....Maintain on BiPAP for now'
Please clarify which of the following accurately represents the patient's respiratory status following surgery:
Acute respiratory failure - please indicate type
Acute pulmonary insufficiency (following surgery)
Hypoxia
Other
Additional information for Pulmonary Insufficiency:
Consider when patients require licensed practical nurse oxygen therapy postoperatively
Weaned off oxygen initially then requiring supplemental oxygen
No other definitive diagnosis to support the need for oxygen (COPD exac, CHF etc.)
Unable to wean from vent
When criteria for respiratory failure not present
May extend stay or require additional resources; may need home O2
Additional information for Respiratory Failure:
Recognized criteria for Respiratory Failure (Source: DO Hospitalist Aug 2013)
ABGs: (1 or more) Symptoms Indicate:
1. p)2 <60 or RA SPO2 <91% on RA 1. Tachypnea, SOB, dyspnea 1. Type as:
2. pCO2 50 and pH <7.35 2. Use of accessory muscles a. Hypoxic
3. pO2 decrease of pCO2 increase by 3. Pallor or cyanosis b. Hypercapnic
10 mmHg from baseline if known 4. Anxiety or restlessness 2. If due to procedure or due to another cause
5. Unable to speak in full sentences
Supplemental O2 of > 40% Intubation is not required
Use of terms such as suspected, likely, concern for, or probable (associated with a specific diagnosis that is being evaluated, monitored, or treated as if it exists) are acceptable and can be coded in the inpatient setting, when documented at the
time of discharge.
Thank you,
Gala Ossun RN, BSN
CDI Specialist
tiger text
Please use your independent medical judgment in providing your response.
[2025-01-16 16:42] VITALS: BP 97/79
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
== END 2025-01-16 18:11 | disposition home or self-care (01) | DRG 276 ==
LOC: IVU 14:25
PROVIDERS: Internal Medicine Cardiovascular Disease; Nurse Practitioner Family; Radiology Neuroradiology; Student in an Organized Health Care Education/Training Program; ADMITTING PHYSICIAN Internal Medicine; ATTENDING PHYSICIAN Family Medicine; CONSULT PHYSICIAN Internal Medicine Cardiovascular Disease; CONSULT PHYSICIAN Internal Medicine Critical Care Medicine; CONSULT PHYSICIAN Psychiatry & Neurology Neurology; EMERGENCY PHYSICIAN Emergency Medicine; OTHER PHYSICIAN Neurological Surgery
PROC: 3E0102A Introduction of Anti-Infective Envelope into Subcutaneous Tissue, Open Approach (ICD-10-PCS; 2025-01-11)
PROC: 02H63KZ Insertion of Defibrillator Lead into Right Atrium, Percutaneous Approach (ICD-10-PCS; 2025-01-11)
PROC: 02HK3KZ Insertion of Defibrillator Lead into Right Ventricle, Percutaneous Approach (ICD-10-PCS; 2025-01-11)
PROC: 5A09357 Assistance with Respiratory Ventilation, Less than 24 Consecutive Hours, Continuous Positive Airway Pressure (ICD-10-PCS; 2025-01-11)
PROC: 02H633Z Insertion of Infusion Device into Right Atrium, Percutaneous Approach (ICD-10-PCS; 2025-01-11)
PROC: 02HL3KZ Insertion of Defibrillator Lead into Left Ventricle, Percutaneous Approach (ICD-10-PCS; 2025-01-11)
PROC: 0JH609Z Insertion of Cardiac Resynchronization Defibrillator Pulse Generator into Chest Subcutaneous Tissue and Fascia, Open Approach (ICD-10-PCS; 2025-01-11)
DX: I47.20 Ventricular tachycardia, unspecified (principal); G92.8 Other toxic encephalopathy; I50.23 Acute on chronic systolic (congestive) heart failure; K72.00 Acute and subacute hepatic failure without coma; T81.11XA Postprocedural cardiogenic shock, initial encounter; J96.01 Acute respiratory failure with hypoxia; S22.089A Unspecified fracture of T11-T12 vertebra, initial encounter for closed fracture; E87.20 Acidosis, unspecified; S32.059A Unspecified fracture of fifth lumbar vertebra, initial encounter for closed fracture; G40.109 Localization-related (focal) (partial) symptomatic epilepsy and epileptic syndromes with simple partial seizures, not intractable, without status epilepticus; I11.0 Hypertensive heart disease with heart failure; S20.319A Abrasion of unspecified front wall of thorax, initial encounter; I44.7 Left bundle-branch block, unspecified; I48.0 Paroxysmal atrial fibrillation; S40.012A Contusion of left shoulder, initial encounter; I25.10 Atherosclerotic heart disease of native coronary artery without angina pectoris; I25.5 Ischemic cardiomyopathy; R55 Syncope and collapse; R04.0 Epistaxis; D50.9 Iron deficiency anemia, unspecified; E78.00 Pure hypercholesterolemia, unspecified; I35.0 Nonrheumatic aortic (valve) stenosis; I95.81 Postprocedural hypotension; Y83.1 Surgical operation with implant of artificial internal device as the cause of abnormal reaction of the patient, or of later complication, without mention of misadventure at the time of the procedure; Y92.239 Unspecified place in hospital as the place of occurrence of the external cause; E87.5 Hyperkalemia; K59.00 Constipation, unspecified; V47.5XXA Car driver injured in collision with fixed or stationary object in traffic accident, initial encounter; W22.11XA Striking against or struck by driver side automobile airbag, initial encounter; Y93.89 Activity, other specified; Y92.414 Local residential or business street as the place of occurrence of the external cause; Z79.82 Long term (current) use of aspirin; Z86.79 Personal history of other diseases of the circulatory system; Z79.01 Long term (current) use of anticoagulants; Z95.2 Presence of prosthetic heart valve; Z88.0 Allergy status to penicillin; Z86.73 Personal history of transient ischemic attack (TIA), and cerebral infarction without residual deficits
CPT/HCPCS: 93308; 33225; 33249; 36600; 70450; 70496; 70498; 71045; 71260; 72125; 74177; 80048; 80053; 81003; 81015; 82140; 82550; 82728; 82805; 82962; 83540; 83550; 83605; 83690; 83735; 84132; 84439; 84443; 85025; 85027; 85610; 85730; 86850; 86900; 86901; 93005; 93321; 93325; 94660; 96361; 96365; 96366; 97116; 97163; 97167; 97530; 99291; C1769; C1777; C1882; C1887; C1892; C1898; C1900; J2260; Q9967

== ENCOUNTER 2025-02-12 06:42 | Day surgery (SDC) | payer OTHER, SELFPAY | END 2025-02-12 09:30 | disposition home or self-care (01) | LOC: CATH 06:42 | PROVIDERS: ATTENDING PHYSICIAN Internal Medicine Cardiovascular Disease; FAMILY PHYSICIAN Internal Medicine; OTHER PHYSICIAN Student in an Organized Health Care Education/Training Program | DX: I48.19 Other persistent atrial fibrillation (principal); Z79.01 Long term (current) use of anticoagulants; I42.9 Cardiomyopathy, unspecified | CPT/HCPCS: 92960; 93005 ==

== ENCOUNTER 2025-04-05 17:50 | Inpatient (IN) | payer OTHER, SELFPAY ==
[2025-04-05] VITALS (24 sets, daily range): BP systolic 77–119; BP diastolic 49–92; BMI 24.5; BMI 24.2
--- NOTE | 2025-04-05 13:44 | ED.GENMED ---
History of Present Illness
<Johann Stanford PA-C - Last Filed: 04/07/25 14:29>
General
Chief Complaint: Dizziness
Source: patient, records and spouse
Time Seen by Provider: 04/05/25 13:36
History of Present Illness
History of Present Illness:
69-year-old male with past medical history of previous CVA, valvular disease, atrial fibrillation, CAD, CHF status post pacemaker defibrillator placement, hypertension, GERD, previous renal insufficiency presenting to the ER for evaluation of
persistent shaking and weakness that started earlier this morning, was at neurology office for routine follow-up visit and was shaking throughout this appointment, symptoms increased while out of breakfast following the appointment prompting to
bring patient to the ER noting that he also seems a little bit weaker than usual. Both the patient and were unaware if patient had any fevers. They do note that earlier today at the primary care office patient did receive a pneumonia vaccine
and thought that it could be related to this. Patient also notes that he recently had the pacemaker placed back in January without any complications. He reports feeling otherwise asymptomatic including denying any chest pain, shortness of breath,
URI-like symptoms, abdominal pain, nausea, vomiting, bowel changes or urinary symptoms. No known sick contacts, recent travel or recent antibiotics otherwise.
Past History
<Johann Stanford PA-C - Last Filed: 04/07/25 14:29>
Past History
ED Past Medical History: Arrthythmia, CAD, CHF, CVA, HTN, Renal failure and Valvular disease
ED Past Surgical History: Cardiac and Orthopedic
Social History
Tobacco: Non-smoker
Alcohol: Occasional
Drug: None
Personal:
Living: with family
Review of Systems
<Johann Stanford PA-C - Last Filed: 04/07/25 14:29>
Review of Systems
All Other Systems: ROS reviewed and negative except as documented in HPI and ROS
Phy Exam
<Johann Stanford PA-C - Last Filed: 04/07/25 14:29>
Physical Exam
Physical Exam:
GENERAL: Alert , in no apparent distress
HEAD: Normocephalic atraumatic
EYE: Clear conjunctiva
NECK: Supple
ENT: o/p clr, mmm.
CARDIAC: Regular rate and rhythm .
LUNGS: Clear breath sounds bilaterally, no acute respiratory distress, no wheezes/rales/rhonchi
CHEST WALL: There is no overlying erythema from the pacemaker insertion site
ABDOMEN: Soft, without focal tenderness, no r/g, no cvat
NEUROLOGICAL: Alert and oriented
SKIN: Hot to the touch and dry, flushed, skin intact.
MUSCULOSKELETAL: No edema, well perfused.
PSYCH: Normal and appropriate interaction.
Scores
<Johann Stanford PA-C - Last Filed: 04/07/25 14:29>
Heart Failure Risk
Heart Failure Risk Score: Not Applicable
Heart Score for Chest Pain Patients
STEMI patient?: Not applicable
Withdrawal Assessment of Alcohol
Withdrawal Assessment Completed?: Not applicable
Sepsis
<Johann Stanford PA-C - Last Filed: 04/07/25 14:29>
Sepsis Screen
Sepsis Screen: Severe Sepsis
Date: 04/07/25
Time: 14:29
<Beverly Cabrera PA-C - Last Filed: 04/06/25 00:40>
Sepsis Screening
Sepsis Assessment: Severe Sepsis
Sepsis Screening: Hypotension
Sepsis Screen
Sepsis Screen: Severe Sepsis
Date: 04/05/25
Time: 16:30
Course
<YANIRA Win Last Filed: 04/07/25 14:29>
Orders/Labs/Results
Orders:
Orders
04/05/25 Breakfast
Sodium, 2 Gram
At Your Request: Full Participation
04/05/25 12:31
Electrocardiogram (*1) Urgent
Reason for Study: Chest Pain
EKG- Treatment ONCE
04/05/25 13:43
0.9% Sodium Chloride 1000 ml [Nss] 1,000 ml IV BOLUS
Acetaminophen [Tylenol] 1,000 mg PO NOW STA
04/05/25 13:44
CR Chest - 2 Views Urgent
Comment:
Reason For Exam: fever
04/05/25 13:58
CMP [Comprehensive Metabolic Panel] Urgent
Complete Blood Count/With Diff Urgent
Lactic Acid Q4H
Comment: CANCEL 2nd LACTIC ACID IF 1st LACTIC ACID IS LESS THAN 2
Blood Culture Q30M
DINESH Source: Blood/Venous
Specimen Description:
04/05/25 14:14
COVID-19 Antigen Urgent
Source: Nasal Swab
04/05/25 14:16
Blood Culture Q30M
DINESH Source: Blood/Venous
Specimen Description:
04/05/25 14:24
Lyme Progressive Urgent
Blood Parasites Urgent
DINESH Source: Blood/Venous
Specimen Description:
04/05/25 14:34
Urinalysis Reflex To Culture Urgent
Date Specimen was Collected: 04/05/25
Time Specimen was Collected: 14:32
Urine Microscopic Reflex Cult Urgent
04/05/25 14:42
CT Head W/o Iv Contrast Urgent
Comment:
Reason For Exam: change in mental status, fever, on eliquis
04/05/25 16:37
0.9% Sodium Chloride 1000 ml [Nss] 1,000 ml IV BOLUS
Aztreonam [Azactam] 2,000 mg IV NOW STA
04/05/25 16:42
Vancomycin [Vancocin] 2,000 mg 0.9% Sodium Chloride 500 ml [Nss] 500 ml IV NOW
04/05/25 16:49
Sterile Water [Sterile Water For Injection] 10 ml .ROUTE .STK-MED ONE
04/05/25 16:53
Piperacillin/Tazo 3.375 Gram [Zosyn] 3.375 gram in 50 ml IV NOW
04/05/25 17:16
Admit/Transfer Patient As Directed
Co-Sign Provider:
Level of Care: Inpatient admission
Assign to:: IMU- Intermediate Care
Physician / Group: Jerrell
Diagnosis: SIRS
Reason for Hospitalization: IV abx
Expected length of stay greater than two midnights?: Yes
ELOS- Estimated Length of Stay in days: 3
I certify the patient meets the requirements for IP care: Yes
04/05/25 17:17
PRN Pain Medication Management As Directed
May give lesser potent ordered pain med per pt: Yes
preference::
Protocol:: Medication orders for pain may be administered in a
manner that supports deferring to patient preference
when the pt is:
- Requesting an ordered lesser potent pain medication.
Least to most potent pain medications are defined
as: acetaminophen < NSAID < tramadol < opioids
(morphine, oxycodone, hydromorphone).
- Requesting a lesser dose of the same medication IF
ORDERED.
- Requesting a less intrusive route of administration
if both routes are prescribed by the provider (PO <
IV).
04/05/25 17:18
Code Status As Directed
Resuscitation Status: Full Code
04/05/25 17:30
Blood Culture Stat
DINESH Source: Blood/Venous
Specimen Description:
04/05/25 20:03
Acetaminophen [Tylenol] 650 mg PO Q4HPRN PRN
04/05/25 20:15
Apixaban [Eliquis] 5 mg PO BID
Levetiracetam [Keppra] 500 mg PO Q12
04/05/25 20:15
INFECTIOUS DISEASE CONSULT Routine
Consulting Provider: Chayo Antunez
Was physician already notified: Yes
I&O [Intake/ Output] As Directed
Frequency: q12h
Vital Signs As Directed
Frequency: Per unit guidelines
Weight As Directed
Frequency: Daily
04/05/25 22:00
CefTRIAXone [Rocephin] 1,000 mg IV Q24H
04/06/25 04:51
Basic Metabolic Panel IN AM
Complete Blood Count/No Diff IN AM
04/06/25 08:00
Amiodarone [Pacerone] 200 mg PO DAILY
Atorvastatin [Lipitor] 40 mg PO DAILY
Abnormal Lab Results
04/05/25 04/05/25
13:58 14:34
WBC 11.3 H 10^3/uL
(4.8-10.8)
MCV 78.6 L fL
(80.0-94.0)
MCH 26.4 L pg
(27.0-31.0)
RDW 23.8 H %
(11.5-14.5)
Plt Count 110 L 10^3/uL
(130-400)
Abs Immat Gran (auto) 0.1 H 10^3/uL
(0-0.05)
Absolute Neuts (auto) 10.3 H 10^3/uL
(1.4-6.5)
Absolute Lymphs (auto) 0.3 L 10^3/uL
(1.2-3.4)
Neutrophils % 91.1 H %
(42.2-75.2)
Lymphocytes % 2.9 L %
(20.5-51.1)
Carbon Dioxide 21 L mmol/L
(22-30)
BUN 31 H mg/dl
(9-20)
ALT 52 H U/L
(0-50)
Ur Occult Blood Reflex 2+ A
(Negative)
Urine RBC 7-10 A /HPF
(0-2)
Urine Bacteria (Reflex) Few A
(Negative)
Urine Glucose 4+ A
(Negative)
Urine Albumin (Reflex) 1+ A
(Neg - Trace)
04/05/25 13:58
04/05/25 13:58
Vital Signs
Initial and Last Documented VS:
Initial Vital Signs
Temp Pulse Resp BP Pulse Ox
101.4 F H 93 18 100/65 97
04/05/25 12:40 04/05/25 12:40 04/05/25 12:40 04/05/25 12:40 04/05/25 12:40
Last Documented Vital Signs
Temp Pulse Resp BP Pulse Ox
97.9 F 70 17 94/66 96
04/07/25 11:09 04/07/25 11:02 04/07/25 10:00 04/07/25 11:02 04/07/25 11:02
<Reginald Miller MD - Last Filed: 04/05/25 16:49>
Orders/Labs/Results
Orders:
Orders
04/05/25 Breakfast
Sodium, 2 Gram
At Your Request: Full Participation
04/05/25 12:31
Electrocardiogram (*1) Urgent
Reason for Study: Chest Pain
EKG- Treatment ONCE
04/05/25 13:43
0.9% Sodium Chloride 1000 ml [Nss] 1,000 ml IV BOLUS
Acetaminophen [Tylenol] 1,000 mg PO NOW STA
04/05/25 13:44
CR Chest - 2 Views Urgent
Comment:
Reason For Exam: fever
04/05/25 13:58
CMP [Comprehensive Metabolic Panel] Urgent
Complete Blood Count/With Diff Urgent
Lactic Acid Q4H
Comment: CANCEL 2nd LACTIC ACID IF 1st LACTIC ACID IS LESS THAN 2
Blood Culture Q30M
DINESH Source: Blood/Venous
Specimen Description:
04/05/25 14:14
COVID-19 Antigen Urgent
Source: Nasal Swab
04/05/25 14:16
Blood Culture Q30M
DINESH Source: Blood/Venous
Specimen Description:
04/05/25 14:24
Lyme Progressive Urgent
Blood Parasites Urgent
DINESH Source: Blood/Venous
Specimen Description:
04/05/25 14:34
Urinalysis Reflex To Culture Urgent
Date Specimen was Collected: 04/05/25
Time Specimen was Collected: 14:32
Urine Microscopic Reflex Cult Urgent
04/05/25 14:42
CT Head W/o Iv Contrast Urgent
Comment:
Reason For Exam: change in mental status, fever, on eliquis
04/05/25 16:37
0.9% Sodium Chloride 1000 ml [Nss] 1,000 ml IV BOLUS
Aztreonam [Azactam] 2,000 mg IV NOW STA
04/05/25 16:42
Vancomycin [Vancocin] 2,000 mg 0.9% Sodium Chloride 500 ml [Nss] 500 ml IV NOW
04/05/25 16:49
Sterile Water [Sterile Water For Injection] 10 ml .ROUTE .STK-MED ONE
04/05/25 16:53
Piperacillin/Tazo 3.375 Gram [Zosyn] 3.375 gram in 50 ml IV NOW
04/05/25 17:16
Admit/Transfer Patient As Directed
Co-Sign Provider:
Level of Care: Inpatient admission
Assign to:: IMU- Intermediate Care
Physician / Group: Jerrell
Diagnosis: SIRS
Reason for Hospitalization: IV abx
Expected length of stay greater than two midnights?: Yes
ELOS- Estimated Length of Stay in days: 3
I certify the patient meets the requirements for IP care: Yes
04/05/25 17:17
PRN Pain Medication Management As Directed
May give lesser potent ordered pain med per pt: Yes
preference::
Protocol:: Medication orders for pain may be administered in a
manner that supports deferring to patient preference
when the pt is:
- Requesting an ordered lesser potent pain medication.
Least to most potent pain medications are defined
as: acetaminophen < NSAID < tramadol < opioids
(morphine, oxycodone, hydromorphone).
- Requesting a lesser dose of the same medication IF
ORDERED.
- Requesting a less intrusive route of administration
if both routes are prescribed by the provider (PO <
IV).
04/05/25 17:18
Code Status As Directed
Resuscitation Status: Full Code
04/05/25 17:30
Blood Culture Stat
DINESH Source: Blood/Venous
Specimen Description:
04/05/25 20:03
Acetaminophen [Tylenol] 650 mg PO Q4HPRN PRN
04/05/25 20:15
Apixaban [Eliquis] 5 mg PO BID
Levetiracetam [Keppra] 500 mg PO Q12
04/05/25 20:15
INFECTIOUS DISEASE CONSULT Routine
Consulting Provider: Chayo Antunez
Was physician already notified: Yes
I&O [Intake/ Output] As Directed
Frequency: q12h
Vital Signs As Directed
Frequency: Per unit guidelines
Weight As Directed
Frequency: Daily
04/05/25 22:00
CefTRIAXone [Rocephin] 1,000 mg IV Q24H
04/06/25 04:51
Basic Metabolic Panel IN AM
Complete Blood Count/No Diff IN AM
04/06/25 08:00
Amiodarone [Pacerone] 200 mg PO DAILY
Atorvastatin [Lipitor] 40 mg PO DAILY
Abnormal Lab Results
04/05/25 04/05/25
13:58 14:34
WBC 11.3 H 10^3/uL
(4.8-10.8)
MCV 78.6 L fL
(80.0-94.0)
MCH 26.4 L pg
(27.0-31.0)
RDW 23.8 H %
(11.5-14.5)
Plt Count 110 L 10^3/uL
(130-400)
Abs Immat Gran (auto) 0.1 H 10^3/uL
(0-0.05)
Absolute Neuts (auto) 10.3 H 10^3/uL
(1.4-6.5)
Absolute Lymphs (auto) 0.3 L 10^3/uL
(1.2-3.4)
Neutrophils % 91.1 H %
(42.2-75.2)
Lymphocytes % 2.9 L %
(20.5-51.1)
Carbon Dioxide 21 L mmol/L
(22-30)
BUN 31 H mg/dl
(9-20)
ALT 52 H U/L
(0-50)
Ur Occult Blood Reflex 2+ A
(Negative)
Urine RBC 7-10 A /HPF
(0-2)
Urine Bacteria (Reflex) Few A
(Negative)
Urine Glucose 4+ A
(Negative)
Urine Albumin (Reflex) 1+ A
(Neg - Trace)
04/05/25 13:58
04/05/25 13:58
Vital Signs
Initial and Last Documented VS:
Initial Vital Signs
Temp Pulse Resp BP Pulse Ox
101.4 F H 93 18 100/65 97
04/05/25 12:40 04/05/25 12:40 04/05/25 12:40 04/05/25 12:40 04/05/25 12:40
Last Documented Vital Signs
Temp Pulse Resp BP Pulse Ox
97.9 F 70 17 94/66 96
04/07/25 11:09 04/07/25 11:02 04/07/25 10:00 04/07/25 11:02 04/07/25 11:02
<Beveryl Cabrera PA-C - Last Filed: 04/06/25 00:40>
Orders/Labs/Results
Orders:
Orders
04/05/25 Breakfast
Sodium, 2 Gram
At Your Request: Full Participation
04/05/25 12:31
Electrocardiogram (*1) Urgent
Reason for Study: Chest Pain
EKG- Treatment ONCE
04/05/25 13:43
0.9% Sodium Chloride 1000 ml [Nss] 1,000 ml IV BOLUS
Acetaminophen [Tylenol] 1,000 mg PO NOW STA
04/05/25 13:44
CR Chest - 2 Views Urgent
Comment:
Reason For Exam: fever
04/05/25 13:58
CMP [Comprehensive Metabolic Panel] Urgent
Complete Blood Count/With Diff Urgent
Lactic Acid Q4H
Comment: CANCEL 2nd LACTIC ACID IF 1st LACTIC ACID IS LESS THAN 2
Blood Culture Q30M
DINESH Source: Blood/Venous
Specimen Description:
04/05/25 14:14
COVID-19 Antigen Urgent
Source: Nasal Swab
04/05/25 14:16
Blood Culture Q30M
DINESH Source: Blood/Venous
Specimen Description:
04/05/25 14:24
Lyme Progressive Urgent
Blood Parasites Urgent
DINESH Source: Blood/Venous
Specimen Description:
04/05/25 14:34
Urinalysis Reflex To Culture Urgent
Date Specimen was Collected: 04/05/25
Time Specimen was Collected: 14:32
Urine Microscopic Reflex Cult Urgent
04/05/25 14:42
CT Head W/o Iv Contrast Urgent
Comment:
Reason For Exam: change in mental status, fever, on eliquis
04/05/25 16:37
0.9% Sodium Chloride 1000 ml [Nss] 1,000 ml IV BOLUS
Aztreonam [Azactam] 2,000 mg IV NOW STA
04/05/25 16:42
Vancomycin [Vancocin] 2,000 mg 0.9% Sodium Chloride 500 ml [Nss] 500 ml IV NOW
04/05/25 16:49
Sterile Water [Sterile Water For Injection] 10 ml .ROUTE .STK-MED ONE
04/05/25 16:53
Piperacillin/Tazo 3.375 Gram [Zosyn] 3.375 gram in 50 ml IV NOW
04/05/25 17:16
Admit/Transfer Patient As Directed
Co-Sign Provider:
Level of Care: Inpatient admission
Assign to:: IMU- Intermediate Care
Physician / Group: Jerrell
Diagnosis: SIRS
Reason for Hospitalization: IV abx
Expected length of stay greater than two midnights?: Yes
ELOS- Estimated Length of Stay in days: 3
I certify the patient meets the requirements for IP care: Yes
04/05/25 17:17
PRN Pain Medication Management As Directed
May give lesser potent ordered pain med per pt: Yes
preference::
Protocol:: Medication orders for pain may be administered in a
manner that supports deferring to patient preference
when the pt is:
- Requesting an ordered lesser potent pain medication.
Least to most potent pain medications are defined
as: acetaminophen < NSAID < tramadol < opioids
(morphine, oxycodone, hydromorphone).
- Requesting a lesser dose of the same medication IF
ORDERED.
- Requesting a less intrusive route of administration
if both routes are prescribed by the provider (PO <
IV).
04/05/25 17:18
Code Status As Directed
Resuscitation Status: Full Code
04/05/25 17:30
Blood Culture Stat
DINESH Source: Blood/Venous
Specimen Description:
04/05/25 20:03
Acetaminophen [Tylenol] 650 mg PO Q4HPRN PRN
04/05/25 20:15
Apixaban [Eliquis] 5 mg PO BID
Levetiracetam [Keppra] 500 mg PO Q12
04/05/25 20:15
INFECTIOUS DISEASE CONSULT Routine
Consulting Provider: Chayo Antunez
Was physician already notified: Yes
I&O [Intake/ Output] As Directed
Frequency: q12h
Vital Signs As Directed
Frequency: Per unit guidelines
Weight As Directed
Frequency: Daily
04/05/25 22:00
CefTRIAXone [Rocephin] 1,000 mg IV Q24H
04/06/25 04:51
Basic Metabolic Panel IN AM
Complete Blood Count/No Diff IN AM
04/06/25 08:00
Amiodarone [Pacerone] 200 mg PO DAILY
Atorvastatin [Lipitor] 40 mg PO DAILY
Abnormal Lab Results
04/05/25 04/05/25
13:58 14:34
WBC 11.3 H 10^3/uL
(4.8-10.8)
MCV 78.6 L fL
(80.0-94.0)
MCH 26.4 L pg
(27.0-31.0)
RDW 23.8 H %
(11.5-14.5)
Plt Count 110 L 10^3/uL
(130-400)
Abs Immat Gran (auto) 0.1 H 10^3/uL
(0-0.05)
Absolute Neuts (auto) 10.3 H 10^3/uL
(1.4-6.5)
Absolute Lymphs (auto) 0.3 L 10^3/uL
(1.2-3.4)
Neutrophils % 91.1 H %
(42.2-75.2)
Lymphocytes % 2.9 L %
(20.5-51.1)
Carbon Dioxide 21 L mmol/L
(22-30)
BUN 31 H mg/dl
(9-20)
ALT 52 H U/L
(0-50)
Ur Occult Blood Reflex 2+ A
(Negative)
Urine RBC 7-10 A /HPF
(0-2)
Urine Bacteria (Reflex) Few A
(Negative)
Urine Glucose 4+ A
(Negative)
Urine Albumin (Reflex) 1+ A
(Neg - Trace)
04/05/25 13:58
04/05/25 13:58
Vital Signs
Initial and Last Documented VS:
Initial Vital Signs
Temp Pulse Resp BP Pulse Ox
101.4 F H 93 18 100/65 97
04/05/25 12:40 04/05/25 12:40 04/05/25 12:40 04/05/25 12:40 04/05/25 12:40
Last Documented Vital Signs
Temp Pulse Resp BP Pulse Ox
97.9 F 70 17 94/66 96
04/07/25 11:09 04/07/25 11:02 04/07/25 10:00 04/07/25 11:02 04/07/25 11:02
<Johann Stanford PA-C - Last Filed: 04/07/25 14:29>
MDM/Problems Addressed
Differential Diagnosis Includes:
- Vaccine administration reaction
- COVID/other viral etiology
- Pneumonia
- UTI
- Pacemaker site infection
- Heat exhaustion/heat related illness
-Bacteremia/sepsis
MDM/Problems Addressed:
69-year-old male presenting to the ER for evaluation of increased shaking and weakness, unknown to the patient and had a fever. Was given a pneumonia vaccine earlier today. Patient is febrile here but without any other symptoms. Will treat
fever with Tylenol. Labs, urine, chest x-ray blood cultures ordered. Will treat with 1 L normal saline as well. Disposition pending.
<Johann Stanford PA-C - Last Filed: 04/07/25 14:29>
*Pulse Oximetry
SaO2: 95
Oxygen Mode of Delivery: Room air
Patient hypoxic: no
*EKG
Heart Rate: 89
Rhythm: av sequential
*Tobacco Cutter Interpretation
Rate: normal
Rhythm: ventricular paced and av sequential
Data Reviewed
Review of Other/Old Records Reveals: Labs and Records
Source: patient and records
<Beverly Cabrera PA-C - Last Filed: 04/06/25 00:40>
*Critical Care Note
Total Time (30-74mins, 75-104mins- exclusive of procedures): Not Applicable
<Johann Stanford PA-C - Last Filed: 04/07/25 14:29>
Comment
Comment:
Leukocytosis and mild thrombocytopenia noted. Given his fever as well as was informed by nursing patient started to see me for 'a little bit confused' I added on a Lyme and blood parasite test. I do anticipate patient will need further monitoring
in the hospital.
<Beverly Cabrera PA-C - Last Filed: 04/06/25 00:40>
Update Note
Update Note:
Update: Received patient in sign out pending results. Labs reveal a mild leukocytosis and thrombocytopenia without clinically significant abnormalities on chemistry. Lactic nomral. Urine not clearly infected. CT head without acute abnormalities and
CXR without evidence of pneumonia.
Update 1630: I was called to patients bedside as he became hypotensive 80s/50s. He remained alert and relatively well appearing. He was given 1L of NS wide open. At this point- fever has come down to 101.4. Given new hypotension - working diagnosis
is sepsis of unclear source. Physical exam not consistent with meningitis. Possible bacteremia - blood cultures pending. Will treat with broad spectrum antibiotics, vancomycin / zosyn and admit to hospital for further management. Patient accepted to
hospitalist service.
ED Attending Note
<Johann Stanford PA-C - Last Filed: 04/07/25 14:29>
-
Portions of this chart may have been created with voice recognition software.� Occasional wrong word or��sound alike� substitutions may have occurred due to the inherent limitations of voice recognition software.
<Reginald Miller MD - Last Filed: 04/05/25 16:49>
ED Attending Note
Patient seen and examined by attending physician: Yes
I performed the substantive portion of visit, reviewed & personally made and approve the management plan that is documented in note by myself or NITIN.: Yes
ED Attending Note:
69-year-old male presented with sudden onset of chills weakness and now some mental status change after a pneumococcal vaccine this morning. Patient was following up with his primary physician and with neurology. He had an AICD placed in January of
this year. Shortly after his pneumococcal vaccine he had some sudden chills. General weakness. Was brought in for further evaluation while here his confusion seem to be getting worse and he had some gait issues and some word finding issues.
On exam patient is nontoxic. Chronically ill-appearing. He is alert to name location and year but was uncertain of the president. Cognitively slightly off. Neck is supple however. No unusual rash. No respiratory distress. Lungs clear and
equal. Heart regular rate and rhythm. Pacemaker upper chest wall. Abdomen nontender. Warm and dry. Grossly nonfocal. No drift. [id number] weak bilaterally but symmetrical. Seen for [id number]. Patient ambulated with a walker but
slightly shuffling gait.
Impression is 103 fever. Chronologically would seem related to the pneumococcal vaccine but of course needs a workup for other infectious etiology. Blood cultures chest x-ray urine tickborne illness all being evaluated. Patient is on Eliquis.
Because of the mental status change we will CT his head. Warrants inpatient management. Patient and family updated
1640.... Patient hypertensive. I had already been in the room reevaluating his situation. He clinically neurologically is improved. We were talking about the [employer]. However blood pressure is 80 systolic. Septic dose fluids and antibiotics
ordered. Penicillin allergy. updated. Hospitalist contacted for admission
Discharge Plan
Departure
Patient Disposition: Admit
Date of Disposition: 04/05/25
Time of Disposition: 16:40
Presentation/result/management discussed w/ accepting MD/DO: Hospitalist
Discharge Problem:
Sepsis
Interventions
Interventions:
*Risk Screen - Suicide Last Done: 04/05/25 12:40
*General Assessment Last Done: 04/05/25 12:40
*Neglect/Abuse Screening Last Done: 04/05/25 13:41
*ED- Fall Risk Assessment Last Done: 04/05/25 12:40
*ED COVID-19 Vaccine History Last Done: 04/05/25 12:40
*Nursing Disposition Last Done: 04/05/25 20:33
ED- Neurological Assessment Last Done: 04/05/25 13:37
ED- Cardiac Assessment Last Done: 04/05/25 13:37
ED Swallowing Screen Last Done: 04/05/25 13:40
Discharge Date and Time
Discharge Date/Time: 04/05/25 20:33
[2025-04-05] MEDS: TYLENOL 1000 MG PO (14:04)
[2025-04-05] MEDS: NSS 1000 IV ×2 (14:08→16:40)
[2025-04-05 14:11] LABS: Hematocrit 39.6 % (39.0-52.0); Hemoglobin 13.3 g/dL (13.0-18.0); Mean Corp Hgb Conc. 33.6 g/dL (33.0-37.0); Mean Corpuscular Volume 78.6 fL (80.0-94.0); Nucleated Red Blood Cells % 0 % (-); Platelet Count 110 10^3/uL (130-400); Red Cell Dist. Width 23.8 % (11.5-14.5)
--- NOTE | 2025-04-05 14:22 | EDRN ---
Patient suddenly became confused to situation and place. Patient word searching. Patient did not remember taking Tylenol and drinking water that he just took. Rj Stanford PA-C notified.
[2025-04-05 14:29] LABS: ALT (SGPT) 52 U/L (0-50); AST (SGOT) 43 U/L (17-59); Albumin 4.0 g/dl (3.5-5.0); Alkaline Phosphatase 110 U/L (38-126); Blood Urea Nitrogen 31 mg/dl (9-20); Calcium 8.8 mg/dl (8.4-10.2); Carbon Dioxide 21 mmol/L (22-30); Chloride 106 mmol/L (98-107); Estimated Creatinine Clearance 70 ml/min; Glucose 98 mg/dl (70-99); Potassium 4.5 mmol/L (3.5-5.1); Sodium 137 mmol/L (135-145); Total Protein 7.4 g/dl (6.3-8.2); eGFR > 60.00
[2025-04-05 14:47] LABS: COVID-19 Antigen Negative (Negative)
[2025-04-05 15:07] LABS: Urine Character Clear (Clear)
[2025-04-05 15:14] LABS: Urine White Cell 0-2 /HPF (0-5)
--- NOTE | 2025-04-05 16:45 | HPS.HSE ---
Family Physician
-
Family Physician: Greg Valentino
Chief Complaint
-
Weakness and Shaking
History of Present Illness
Patient is a 69 y/o male past medical history of HFrEF, CAD, A-Fib, Cardiomyopathy s/p ICD in January 2025, Aortic Stenosis s/p TAVR in Nov 2024, Seizure Disorder who presents with weakness and shaking. Patient reports he initially felt weak this
morning and then developed uncontrollable shaking which worsened over the coarse of the morning. Patient reports having some episodes of being 'loopy', His brought him to the emergency department for evaluation due to the worsening symptoms.
Upon arrival to the emergency department he was found to be febrile. Patient denies cough, shortness of breath, nausea, vomiting, diarrhea or dysuria. He reports doing work outside the past few days but denies any insect/tick bites. He denies any
recent travel.
Medical History
Past Medical History
Past Medical History: Reports Other
Additional Past Medical History:
Coronary Artery Disease
Ischemic Cardiomyopathy
Chronic HFrEF
Aortic Stenosis s/p TAVR
Paroxysmal Atrial Fibrillation
Left Atrial Appendage Thrombus
Essential Hypertension
Hyperlipidemia
Seizure Disorder
CVA
Past Surgical History: Reports Other
Additional Past Surgical History:
Bilateral Knee Replacements
TAVR
ICD
Social History
Tobacco: Non-smoker
Alcohol: None
Drug: None
Personal:
Living: With Family
Family History
Family History: Not pertinent
Allergies / Home Medications
Allergies reflects when Allergies were last updated in [facility].
Home Medications with original date entered in [facility]
Allergy/Medication List:
Allergies
Allergy/AdvReac Type Severity Reaction Status Date / Time
Penicillins Allergy Unknown- Verified 01/10/25 10:50
TOLD
YOUNG CHILD
Home Medications
apixaban 5 mg tablet (Eliquis) 5 mg PO BID Blood Clot Prevention/Tx 10/12/24
bumetanide 2 mg tablet 2 mg PO DAILY Fluid retention/Swelling #30 tabs 12/01/24
metoprolol succinate 25 mg tablet,extended release 24 hr 12.5 mg PO BID Heart disease/condition 01/10/25
potassium chloride 20 mEq tablet,extended release 20 meq PO HS Supplement 01/10/25
sacubitril 24 mg-valsartan 26 mg tablet (Entresto) 1 tab PO BID Blood Pressure 01/10/25
amiodarone 200 mg tablet 200 mg PO DAILY 04/05/25
atorvastatin 40 mg tablet 40 mg PO DAILY 04/05/25
dapagliflozin propanediol 10 mg tablet (Farxiga) 10 mg PO DAILY 04/05/25
dorzolamide 2 % eye drops 1 drp BOTH EYES BID 04/05/25
levetiracetam 500 mg tablet 500 mg PO Q12H 04/05/25
Review of Systems
-
History Source: Patient
A 12 point ROS was completed and negative except as noted: Yes
Constitutional: Reports Fever and Chills
Respiratory: Denies Cough or Trouble Breathing
Cardiac: Denies Chest Pain or Palpitations
Abdomen/GI: Denies Abdominal Pain, Nausea, Vomiting or Diarrhea
: Denies Dysuria, Flank Pain or Difficulty Voiding
Musculoskeletal: Denies Joint Pain or Joint Swelling
Skin: Denies Rash
Physical Exam
Vital Signs
Vital Signs
Temp Pulse Resp BP Pulse Ox
100.2 F 96 18 111/64 98
04/05/25 16:34 04/05/25 14:23 04/05/25 14:23 04/05/25 14:23 04/05/25 14:23
Physical Exam
General: Comfortable and Conversant
HEENT: Anicteric and Moist mucous membranes
Respiratory: Clear and Non Labored Respirations
Cardiac: S1/S2, Regular Rhythm, Murmur and Other (ICD site appears clean and intact)
GI: Soft and Non Tender
Rectal: Deferred by Provider
Musculoskeletal: No Clubbing, No Cyanosis and No Edema
Skin: Warm and Dry; No Rash
Neuro: Awake, Alert, Oriented and Nonfocal/grossly intact
Psych: Calm
Laboratory Results
-
04/05/25 13:58
04/05/25 13:58
Laboratory Results
Lactic Acid Cancelled 04/05/25 17:45
Total Bilirubin 0.9 mg/dl (0.2-1.3) 04/05/25 13:58
AST 43 U/L (17-59) 04/05/25 13:58
ALT 52 U/L (0-50) H 04/05/25 13:58
Alkaline Phosphatase 110 U/L (38-126) 04/05/25 13:58
Chest X-Ray:
No acute cardiopulmonary process.
Head CT:
No acute intracranial abnormality noted.
Data Reviewed
-
Diagnostic Radiology: Report Reviewed by me
Lab Data: Labs Reviewed by me
Old Records: Reviewed
Impression/Plan
-
Systemic Inflammatory Response Syndrome (criteria met include fever, tachycardia, and leukocytosis)
-No clear source of infection but high clinical concern for bacteremia and possibly endocarditis given his recent TAVR and ICD placement
-Admit to IMU as blood pressure is running on the low side
-Check blood cultures
-Check Lyme serology
-Continue empiric vancomycin and ceftriaxone
-Consult infectious disease
Coronary Artery Disease
Ischemic Cardiomyopathy s/p ICD
Chronic HFrEF
-Hold Bumex, Farxiga and Entresto
-Monitor Daily Weights
Paroxysmal Atrial Fibrillation
-Continue amiodarone
-Continue Eliquis
Hyperlipidemia
-Continue atorvastatin
Seizure Disorder
-Continue levetiracetam
Hx Aortic Stenosis s/p TAVR
Hx Left Atrial Appendage Thrombus
Hx CVA
DVT proph: Eliquis
Code Status: Full Code
[2025-04-05] MEDS: AZACTAM 2000 MG IV (17:04)
[2025-04-05] MEDS: VANCOCIN 540 MG IV (17:09)
[2025-04-05] MEDS: ZOSYN 50 IV (17:17)
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
--- NOTE | 2025-04-05 19:00 | EDRN ---
Report received, introduced myself to patient, meds were complete so took them down, informed patient we will be heading up to his room shortly, call pierre in reach, no further complaints.
--- NOTE | 2025-04-05 20:00 | EDRN ---
Went to give patient a cup of water per his request, he was at the end of the bed and seemed confused, with assistance of another nurse, pulled patient up in bed, patient felt warm, checked rectal temp, was 104.7, gave tylenol as ordered and packed
patient with some ice packs. Patients sheets changed and pulled up in bed, patient to be transported up to IMU.
[2025-04-05] MEDS: TYLENOL 650 MG PO (20:07)
--- NOTE | 2025-04-05 20:26 | PHA.VAN.IN ---
Assessment
- Assessment
Renal Function: Appears similar to baseline
Maximum Temperature: 104.7 F rectal 04/05 @ 2007
Concomitant Antimicrobials: ceftriaxone
Plan
- Plan
Initial / Loading Dose: vanc 2000mg administered @ 1709
Maintenance Regimen: dosing by level
Monitoring: random level 04/06 06
Pharmacokinetics Vancomycin I
- -
Patient Age: 69
Patient Sex: Male
Vancomycin Day #: 1
Indication: Other
Requesting Provider: Shira Wren
Pertinent Antimicrobial Allergies:
penicillin - unknown, as a child
Height / Weight:
Height 5 ft 10 in
Actual Weight 77.4 kg
- Vital Signs / Lab Results
Temp Pulse Resp BP Pulse Ox
104.7 F H 109 15 91/76 98
04/05/25 20:08 04/05/25 20:02 04/05/25 20:02 04/05/25 20:02 04/05/25 14:23
Lab Results - Hematology
04/05/25
13:58
WBC 11.3 H
Lab Results - Chemistry
04/05/25
13:58
BUN 31 H
Creatinine 1.0
Estimated Creat Clear 70
Albumin 4.0
04/05/25 04/05/25
13:58 17:45
Lactic Acid 1.9 Cancelled
Lab Results - Urine
04/05/25
14:34
Urine Nitrite (Reflex) Negative
Leukocyte Esterase Rfl Negative
Urine WBC (Reflex) 0-2
Ur Squamous Epith Cells 3-5
Urine Bacteria (Reflex) Few A
Microbiology Results
04/05/25 14:24 Blood Parasites Smear - Preliminary
Blood/Venous
[2025-04-05] MEDS: ROCEPHIN 1000 MG IV (20:57)
[2025-04-05] MEDS: ELIQUIS 5 MG PO (20:57)
[2025-04-05] MEDS: KEPPRA 500 MG PO (20:57)
[2025-04-05] MEDS: STERILE WATER FOR INJECTION 10 ML IV (20:58)
[2025-04-06] VITALS (40 sets, daily range): BP systolic 78–105; BP diastolic 51–75; BMI 24.0
[2025-04-06 05:14] LABS: Hematocrit 36.6 % (39.0-52.0); Hemoglobin 11.9 g/dL (13.0-18.0); Mean Corp Hgb Conc. 32.5 g/dL (33.0-37.0); Mean Corpuscular Volume 79.6 fL (80.0-94.0); Platelet Count 87 10^3/uL (130-400); Red Cell Dist. Width 24.3 % (11.5-14.5)
[2025-04-06 05:32] LABS: Blood Urea Nitrogen 26 mg/dl (9-20); Calcium 8.1 mg/dl (8.4-10.2); Carbon Dioxide 14 mmol/L (22-30); Chloride 114 mmol/L (98-107); Estimated Creatinine Clearance 70 ml/min; Glucose 91 mg/dl (70-99); Potassium 3.9 mmol/L (3.5-5.1); Sodium 136 mmol/L (135-145); eGFR > 60.00
--- NOTE | 2025-04-06 05:43 | PTCARENOTE ---
Received patient from the ED overnight. Tmax 100.8. Oriented with periods of forgetfulness. Soft BPs with maps that remained at 65 and above. Critical c02 of 14 with am labs. weight caller provider made aware and ordered IVF with bicarb.
[2025-04-06] MEDS: SODIUM BICARBONATE 1150 MEQ IV (06:10)
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
--- NOTE | 2025-04-06 08:23 | PHA.VAN.FU ---
Vancomycin Assessment / Plan
- Assessment
Renal Function: Stable (BUN trending down)
WBC's are: Trending Up
In the past 24 hrs, patient has been: Febrile
Concomitant Antimicrobials: ceftriaxone
- Assessment - Therapeutic Drug Monitoring
Random Level: 10.7 - 12H after 2g loading dose
Specimen was not protected from light - may have additional degradation of sample
- Dosing Plan
Adjust Regimen to: Vanc 750mg Q12H - first dose now then 1800
New Regimen Predicts: AUC (465), Peak (26.7), Trough (13.4)
- Monitoring Plan
No level(s) ordered at this time: consider levels in next few days
- Follow Up
Pharmacy will continue to follow.
Vancomycin Follow UP
- -
Patient Age: 69
Patient Sex: Male
Vancomycin Day #: 2
Indication: Other
Requesting Provider: Chidi Wren
Pertinent Antimicrobial Allergies:
penicillin - unknown, as a child
Height / Weight:
Height 5 ft 10 in
Actual Weight 75.8 kg
- Vital Signs / Lab Results
Temp Pulse Resp BP Pulse Ox
97.8 F 70 19 97/66 97
04/06/25 07:24 04/06/25 06:00 04/06/25 06:00 04/06/25 06:00 04/06/25 06:00
Lab Results - Hematology
04/05/25 04/06/25
13:58 04:51
WBC 11.3 H 15.1 H
Lab Results - Chemistry
04/05/25 04/06/25
13:58 04:51
BUN 31 H 26 H
Creatinine 1.0 1.0
Estimated Creat Clear 70 70
Albumin 4.0
04/05/25 04/05/25
13:58 17:45
Lactic Acid 1.9 Cancelled
Lab Results - Urine
04/05/25
14:34
Urine Nitrite (Reflex) Negative
Leukocyte Esterase Rfl Negative
Ur Squamous Epith Cells 3-5
Microbiology Results
04/05/25 14:16 Blood Culture - Preliminary
Blood/Venous Positive culture in progress
Gram Stain - Final
04/05/25 13:58 Blood Culture - Preliminary
Blood/Venous Positive culture in progress
Gram Stain - Final
04/05/25 14:24 Blood Parasites Smear - Preliminary
Blood/Venous
Therapeutic Drug Monitoring
Random Vancomycin 10.7 ug/ml 04/06/25 04:51
[2025-04-06] MEDS: ELIQUIS 5 MG PO ×2 (08:44→19:49)
[2025-04-06] MEDS: LIPITOR 40 MG PO (08:44)
[2025-04-06] MEDS: PACERONE 200 MG PO (08:44)
[2025-04-06] MEDS: KEPPRA 500 MG PO ×2 (08:46→19:49)
[2025-04-06] MEDS: TRUSOPT 2% OPHTHALMIC SOLUTION 1 DROP BOTH EYES ×2 (08:46→19:49)
[2025-04-06 09:45] LABS: C-Reactive Protein 67.40 mg/L (0.0-10.00)
[2025-04-06] MEDS: VANCOCIN 150 IV ×2 (10:00→18:01)
--- NOTE | 2025-04-06 11:05 | CON.CAR ---
Addendum entered and electronically signed by Ole Light MD 04/06/25 14:14:
69 yo male with PMH of CAD, severe s/p TAVR 11/2024, ICM prior EF 10%, BiV ICD, persistent A fib s/p DCCV and now in sinus is admitted with fever, chills, and bacteremia. Currently afebrile and feels better. Exam with RRR, no murmurs, no edema.
TTE shows EF 30-35%, TAVR with mild/mod AR. No vegetation. Bcx: + S. Aureus.
Bacteremia with h/o TAVR and ICD. Abx per ID. Will perform NASIM today.
Continue GDMT for his ICM.
Original Note:
Consultation
Consultation Request
Date/Time Consultation Requested: 04/06/25 8:20a
Date/Time Consultation Performed: 04/06/25 10:30a
Requesting Provider: Dr. Romo
Performing Provider: MULUGETA Barnes for Dr. Light
Reason for Consultation: sepsis, concern for endocarditis
Medical History
-
Chief Complaint: chills and weakness
History of Present Illness:
Mr. Gillespie is a 69 yo male with severe 3 vessel CAD, severe s/p TAVR 11/24/24, severe ischemic CM, HFrEF 10%, s/p MDT BiV ICD implant 01/11/25, CVA, HTN, HLD and persistent Afib (s/p cardioversion x 4, recent 02/12/25) on [facility], who presents to the
ER with c/o weakness and chills that began yesterday. He received a pneumonia vaccine at his PCP office in the morning then went to breakfast then to his Neurologist appointment. He felt weak and shaky on the way to his Neurologist and he sent him
in for evaluation. He is admitted to the hospitalist service with blood cultures positive for staphylococcus aureus and we are consulted for possible endocarditis. Currently he reports feeling well, denies any cardiac complaints.
Past Medical History
Past Medical History: Other (as above)
Past Surgical History: Other (as above)
Social History
Tobacco: Former Smoker
Alcohol: Occasional
Personal:
Living: With Family
Employment: Retired
Family History
Family History: Reviewed & Not Pertinent
Allergies / Home Medications
Allergy/AdvReac Type Severity Reaction Status Date / Time
Penicillins Allergy Unknown- Verified 01/10/25 10:50
TOLD
YOUNG CHILD
�Medication �Instructions �Recorded �Confirmed �Type
apixaban 5 mg tablet (Eliquis) 5 mg PO BID Blood Clot 10/12/24 04/05/25 History
Prevention/Tx
bumetanide 2 mg tablet 2 mg PO DAILY Fluid 12/01/24 04/05/25 Rx
retention/Swelling #30 tabs
metoprolol succinate 25 mg 12.5 mg PO BID Heart 01/10/25 04/05/25 History
tablet,extended release 24 hr disease/condition
potassium chloride 20 mEq 20 meq PO QPM Supplement 01/10/25 04/05/25 History
tablet,extended release
sacubitril 24 mg-valsartan 26 mg 1 tab PO BID Blood Pressure 01/10/25 04/05/25 History
tablet (Entresto)
amiodarone 200 mg tablet 200 mg PO DAILY 04/05/25 04/05/25 History
atorvastatin 40 mg tablet 40 mg PO QPM 04/05/25 04/05/25 History
dapagliflozin propanediol 10 mg 10 mg PO QPM 04/05/25 04/05/25 History
tablet (Farxiga)
dorzolamide 2 % eye drops 1 drp BOTH EYES BID 04/05/25 04/05/25 History
levetiracetam 500 mg tablet 500 mg PO Q12H 04/05/25 04/05/25 History
Review of Systems
-
History Source: Patient
All other systems: Negative unless noted
Physical Exam
Vital Signs
Temp Pulse Resp BP Pulse Ox
97.8 F 70 19 97/66 97
04/06/25 07:24 04/06/25 06:00 04/06/25 06:00 04/06/25 06:00 04/06/25 06:00
Lab Results
04/06/25 04:51
04/06/25 04:51
Physical Exam
General: Well Developed, Well Nourished and No Apparent Distress
HEENT: Normocephalic, Anicteric and Moist Mucous Membranes
Respiratory: Clear and Non Labored Respirations
Cardiac: S1/S2
Breast: Deferred by me
GI: Soft, Non Tender, Non Distended and Normal Bowel Sounds
Rectal: Deferred by Provider
Genito-urinary: No Costovertebral Tender
Musculoskeletal: No Clubbing, No Cyanosis and No Edema
Skin: Warm and Dry
Neuro: AO x 3
Hematologic/Lymphatic: No Lymphadenopathy
Psych: Calm
Impression / Plan
-
Bacteremia - acute, blood cultures positive for staphylococcus aureus, MRSA.
- on ABX, ID consulted.
- echo today as below.
- needs NASIM, will try for later this afternoon. NPO.
Severe - s/p TAVR 11/24/24.
- stable on echo.
ICM/HFrEF - chronic.
- EF now 30-35% on echo 04/06/25.
- previous EF 10%.
- continue GDMT with Toprol, Entresto, Jardiance, and Bumex.
- has MDT BiV ICD in place.
ICD - MDT BiV device.
- stable with normal function and followed in our outpatient device clinic.
CAD - severe 3 vessel.
- stable w/o angina.
- continue medical therapy.
Afib - s/p cardioversion 02/12/25 restoring NSR.
- on Eliquis, continue.
- asymptomatic.
Echo 04/06/25: EF 30-35%, mild mitral stenosis, s/p TAVR with peak/mean gradients across the aortic valve at 19/10 mmHg, mild/moderate paravalvular aortic regurgitation, enlarged right ventricular size with normal right ventricular systolic function,
mild/moderate tricuspid regurgitation, no vegetation visualized on valves or device leads within limits of TTE.
Data Reviewed
-
EKG: Tracing Personally Visualized and interpreted (A sensed, v paced 89 bpm)
Radiology: Report Reviewed by me (CXR NAD)
CT Scan: Report Reviewed by me (head: no abnormality)
Labs: Labs Reviewed by me
Old Records: Reviewed
[2025-04-06] MEDS: NSS 250 IV (11:30)
--- NOTE | 2025-04-06 12:05 | CM ---
Patient with Dx Systemic Inflammatory Response Syndrome. Room air. Receiving IV Abx. Per nurse; forgetful.
Met with patient and ;
the patient resides with his in a 2 story house with 1 [address].
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 If unable to continue working in that capacity patient would have 6 months to move.
The patient has been independent in ADLs and ambulation without using an assistive device, and says he has remained active working outdoors on the estate property.
DME - RW, SPC, BP cuff
No prior VN or SNF
PCP - Greg Valentino
[facility] - [facility]
Patient states he has not been OOB yet since admission.
Offered VN and patient declined at this time.
Plan follow patient's mobility and clinical status.
Plan probable home.
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
--- NOTE | 2025-04-06 13:09 | PN.CDI ---
CDI
- -
CDI:
Physician Documentation Request
Admit Date: 04/05/25 17:50
Dear Doctor Clarissa,
Clinical Indicators:
Patient admitted with Sepsis.
04/05 ED report, 'General weakness. Was brought in for further evaluation while here his confusion seem to be getting worse and he had some gait issues and some word finding issues.'
04/05 (14:22) RN note, 'Patient suddenly became confused to situation and place. Patient word searching. Patient did not remember taking Tylenol and drinking water that he just took.'
04/05 H & P, 'Patient reports having some episodes of being 'loopy''
Based on the above, could you clarify which, if any of the following, is the most likely etiology of the confusion/altered mental status.
Acute Metabolic Encephalopathy
Acute or subacute confusional state due to ____ (specify known or suspected etiology)
Other, please specify
Use of terms such as suspected, likely, concern for, or probable (associated with a specific diagnosis that is being evaluated, monitored, or treated as if it exists) are acceptable and can be coded in the inpatient setting, when documented at the
time of discharge.
Thank you,
TAM Saunders RN
CDI Specialist
available via tiger text
Please use your independent medical judgment in providing your response.
[2025-04-06] MEDS: ANCEF 10 IV ×2 (14:31→21:00)
--- NOTE | 2025-04-06 15:15 | PTCARENOTE ---
Addendum entered by Adriana Acharya RN 04/06/25 15:23:
1523: Dr Cabrera arrived to see pt
Original Note:
Arrived to pts room [id number] for NASIM procedure; Awaiting Dr Light arrival to obtain consent.
--- NOTE | 2025-04-06 15:15 | W.PN.UPDATE ---
Update Note
Progress Note Update
Performed bedside POCUS as patient with borderline blood pressures throughout the day. MAP 63 at time of my assessment.
Subxiphoid view difficult to fully assess IVC secondary to his anatomy with low riding xiphoid. Unable to obtain formal measurements though was able to visualize hepatic veins and portion of IVC which demonstrated respiratory variation near 50% on
visual estimation.
Parasternal long and short axis views demonstrated enlarged RV, LVEF roughly 30% and stenosis of mitral valve.
Apical four-chamber demonstrated RV ICD lead approximating to the apex. Again with enlarged RV.
Suspect that the patient would be volume responsive at this time. Will order another 500 mL IV fluids and reassess BP and volume status after.
--- NOTE | 2025-04-06 15:24 | PTCARENOTE ---
1530 Molybden[employer] Steamer Operator Iliana Khanna arrived to pts room
1535 Dr Light arrived and consent obtained.
1543 Sary Tse CRNA arrived/monitoring sedation; See anesthesia record
1549 Pt placed on high flow O2 by WET FINISHER WOOL
1550 Dr Light arrived and Time out performed
1553 Pt positioned on left side with Wedge pillow.
1554 Bite block positioned
1557 Shay probe inserted (Probe #1)/ images being obtained
1559 Pt stable; Shay remains in progress
1606 Pt stable; Shay remains in progress
1614 Probe removed; Case Ended.
--- NOTE | 2025-04-06 16:45 | PTCARENOTE ---
Pt AAO x 3; VSS. No complaints of pain post NASIM. Report given to Elsa YAO
--- NOTE | 2025-04-06 17:38 | W.PN.UPDATE ---
Update Note
Progress Note Update
No evidence of endocarditis on NASIM.
[2025-04-06] MEDS: NSS 500 IV (18:04)
--- NOTE | 2025-04-06 19:22 | PTCARENOTE ---
day shift note. see nursing assessment. pt hypotensive with bps in 70s systolic at times this am. iv boluses administered per order and bps up to 80-90s systolic with map greater than 65. pt alert awake and conversant. per hospitalist bp in 80s ok
if map above 65. NASIM done at bedside. iv antibiotics administered per order.
[2025-04-07] VITALS (24 sets, daily range): BP systolic 86–120; BP diastolic 57–76; BMI 25.1
[2025-04-07 04:59] LABS: Hematocrit 33.0 % (39.0-52.0); Hemoglobin 10.8 g/dL (13.0-18.0); Mean Corp Hgb Conc. 32.7 g/dL (33.0-37.0); Mean Corpuscular Volume 79.3 fL (80.0-94.0); Nucleated Red Blood Cells % 0 % (-); Platelet Count 81 10^3/uL (130-400); Red Cell Dist. Width 23.9 % (11.5-14.5)
--- NOTE | 2025-04-07 05:14 | PTCARENOTE ---
Afebrile overnight. Maps maintained at 65 and above. Patient desatted to 79 percent while asleep. inventory specialist manager provider made aware and asked to place 02 order. Satting 94 percent on 2 liters.
[2025-04-07 05:16] LABS: Blood Urea Nitrogen 16 mg/dl (9-20); Calcium 7.6 mg/dl (8.4-10.2); Carbon Dioxide 20 mmol/L (22-30); Chloride 113 mmol/L (98-107); Estimated Creatinine Clearance 87 ml/min; Glucose 85 mg/dl (70-99); Magnesium 2.2 mg/dl (1.6-2.3); Potassium 3.9 mmol/L (3.5-5.1); Sodium 136 mmol/L (135-145); eGFR > 60.00
[2025-04-07] MEDS: ANCEF 10 IV ×3 (05:53→21:09)
[2025-04-07] MEDS: VANCOCIN 150 IV ×2 (05:54→17:40)
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
--- NOTE | 2025-04-07 07:45 | PTCARENOTE ---
Patient received from manager of data. Patient resting comfortably in bed, will get OOB to chair. AAO, VSS. No events noted overnight aside from needing to be placed on 2L N/C due to some nocturnal desaturations, on Room Air now. No complaints of
pain. Continuing ABX. No testing scheduled at this time. Call pierre in reach.
[2025-04-07] MEDS: PACERONE 200 MG PO (07:52)
[2025-04-07] MEDS: KEPPRA 500 MG PO ×2 (07:53→19:33)
[2025-04-07] MEDS: TRUSOPT 2% OPHTHALMIC SOLUTION 1 DROP BOTH EYES ×2 (07:53→19:33)
[2025-04-07] MEDS: ELIQUIS 5 MG PO ×2 (07:53→19:33)
[2025-04-07] MEDS: LIPITOR 40 MG PO (07:53)
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
--- NOTE | 2025-04-07 09:57 | PHA.VAN.FU ---
Vancomycin Assessment / Plan
- Assessment
Renal Function: Stable
WBC's are: WNL
In the past 24 hrs, patient has been: Afebrile
Concomitant Antimicrobials: cefazolin
- Dosing Plan
Continue: vancomycin 750 mg q12h - first dose 04/06 0900
- Monitoring Plan
No level(s) ordered at this time: consider levels Wednesday if vanc continues
- Follow Up
Pharmacy will continue to follow.
Vancomycin Follow UP
- -
Patient Age: 69
Patient Sex: Male
Vancomycin Day #: 3
Indication: Other
Requesting Provider: Chidi Wren
Pertinent Antimicrobial Allergies:
penicillin - unknown, as a child
Height / Weight:
Height 5 ft 10 in
Actual Weight 79.2 kg
- Vital Signs / Lab Results
Temp Pulse Resp BP Pulse Ox
98.1 F 70 18 111/70 95
04/07/25 07:26 04/07/25 07:52 04/07/25 07:00 04/07/25 07:52 04/07/25 08:15
Lab Results - Hematology
04/05/25 04/06/25 04/07/25
13:58 04:51 04:15
WBC 11.3 H 15.1 H 8.4
Lab Results - Chemistry
04/05/25 04/06/25 04/07/25
13:58 04:51 04:15
BUN 31 H 26 H 16
Creatinine 1.0 1.0 0.8
Estimated Creat Clear 70 70 87
Albumin 4.0
04/05/25 04/05/25
13:58 17:45
Lactic Acid 1.9 Cancelled
Microbiology Results
04/05/25 17:30 Blood Culture - Preliminary
Blood/Venous Positive culture in progress
Gram Stain - Preliminary
04/05/25 14:24 Blood Parasites Smear - Final
Blood/Venous
04/05/25 13:58 Blood Culture - Preliminary
Blood/Venous Staphylococcus aureus
Gram Stain - Final
04/05/25 14:16 Blood Culture - Preliminary
Blood/Venous Positive culture in progress
Gram Stain - Final
Therapeutic Drug Monitoring
Random Vancomycin 10.7 ug/ml 04/06/25 04:51
--- NOTE | 2025-04-07 12:36 | W.PN.CD ---
Today's Communication / Plan
-
IV Abx
await S aureus sensitivities, and for clear cultures
Impression / Plan
-
Bacteremia - acute, blood cultures positive for staphylococcus aureus
- on ABX, ID consulted.
- no endocarditis in NASIM 04/06: will still need 6 wks Abx given TAVR and ICD
-last Bcx + on 04/05, and new set drawn today
Severe - s/p TAVR 11/24/24.
- stable on NASIM
ICM/HFrEF - chronic.
- EF now 30-35% on echo 04/06/25.
- previous EF 10%.
- continue GDMT with Toprol, Entresto, Jardiance, and Bumex.
- has MDT BiV ICD in place.
ICD - MDT BiV device.
- stable with normal function and followed in our outpatient device clinic.
CAD - severe 3 vessel.
- stable w/o angina.
- continue medical therapy.
Afib - s/p cardioversion 02/12/25 restoring NSR.
- on Eliquis, continue.
- asymptomatic.
Echo 04/06/25: EF 30-35%, mild mitral stenosis, s/p TAVR with peak/mean gradients across the aortic valve at 19/10 mmHg, mild/moderate paravalvular aortic regurgitation, enlarged right ventricular size with normal right ventricular systolic function,
mild/moderate tricuspid regurgitation, no vegetation visualized on valves or device leads within limits of TTE.
Physical Exam
Vital Signs/Labs
Vital Signs
Temp Pulse Resp BP Pulse Ox
97.9 F 70 17 94/66 96
04/07/25 11:09 04/07/25 11:02 04/07/25 10:00 04/07/25 11:02 04/07/25 11:02
04/06/25 04/07/25 04/08/25
06:59 06:59 06:59
Actual Weight 75.8 kg 79.2 kg
04/07/25 04:15
04/07/25 04:15
Magnesium 2.2 mg/dl (1.6-2.3) 04/07/25 04:15
Physical Exam
Constitutional: No acute distress and Comfortable
EENT: Moist mucous membranes
Cardiovascular: Rhythm & rate is regular, Pedal edema is absent, JVD pressure is normal and Systolic murmur absent
Respiratory: Respiratory effort normal and Lungs clear to auscul.
Neuro/Psych: AO x 3
Data Reviewed
-
Date of Service: April 07, 2025
EKG: Other (Tele: AsVp 70)
Labs: Labs Reviewed by me
[2025-04-07] MEDS: FARXIGA 10 MG PO (17:41)
[2025-04-07] MEDS: TOPROL XL 12.5 MG PO (19:34)
--- NOTE | 2025-04-07 23:41 | PTCARENOTE ---
Patient desatted to 74 percent while asleep. Placed on 2 liters NC and maintaining sat at 97%.
[2025-04-08] VITALS (28 sets, daily range): BP systolic 89–150; BP diastolic 61–114; PULSE 71; O2SAT 94–96; BMI 24.5
[2025-04-08 04:13] LABS: Hematocrit 33.5 % (39.0-52.0); Hemoglobin 10.9 g/dL (13.0-18.0); Mean Corp Hgb Conc. 32.5 g/dL (33.0-37.0); Mean Corpuscular Volume 79.8 fL (80.0-94.0); Nucleated Red Blood Cells % 0 % (-); Platelet Count 90 10^3/uL (130-400); Red Cell Dist. Width 23.6 % (11.5-14.5)
[2025-04-08 04:34] LABS: Blood Urea Nitrogen 14 mg/dl (9-20); Calcium 7.7 mg/dl (8.4-10.2); Carbon Dioxide 21 mmol/L (22-30); Chloride 114 mmol/L (98-107); Estimated Creatinine Clearance 100 ml/min; Glucose 92 mg/dl (70-99); Magnesium 2.3 mg/dl (1.6-2.3); Potassium 3.9 mmol/L (3.5-5.1); Sodium 139 mmol/L (135-145); eGFR > 60.00
[2025-04-08 04:56] LABS: Anisocytosis 2+; Microcytosis 2+; Normal RBC Morphology No; Ovalocytes 1+
[2025-04-08] MEDS: ANCEF 10 IV ×3 (05:08→21:40)
[2025-04-08] MEDS: VANCOCIN 150 IV (05:08)
--- NOTE | 2025-04-08 06:05 | PTCARENOTE ---
No acute events overnight. Patient remained afebrile. VSS. Required 2 liters NC while asleep. IV abx infusing as ordered.
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
[2025-04-08] MEDS: ELIQUIS 5 MG PO ×2 (08:55→20:13)
[2025-04-08] MEDS: TOPROL XL 12.5 MG PO ×2 (08:55→20:16)
[2025-04-08] MEDS: KEPPRA 500 MG PO ×2 (08:55→20:16)
[2025-04-08] MEDS: LIPITOR 40 MG PO (08:55)
[2025-04-08] MEDS: PACERONE 200 MG PO (08:55)
[2025-04-08] MEDS: BUMEX 2 MG PO (08:56)
[2025-04-08] MEDS: TRUSOPT 2% OPHTHALMIC SOLUTION 1 DROP BOTH EYES ×2 (08:56→20:22)
--- NOTE | 2025-04-08 09:48 | PHA.VAN.FU ---
Vancomycin Assessment / Plan
- Assessment
Renal Function: SCR Decreasing (1.0->0.8->0.7)
WBC's are: WNL
In the past 24 hrs, patient has been: Afebrile
Concomitant Antimicrobials: cefazolin
- Dosing Plan
Continue: vancomycin 750 mg q12h - first dose 04/06 900
- Monitoring Plan
Peak Level: 04/08 2100
Trough Level: 04/09 530
- Follow Up
Pharmacy will continue to follow.
Vancomycin Follow UP
- -
Patient Age: 69
Patient Sex: Male
Vancomycin Day #: 4
Indication: Other
Requesting Provider: Chidi Wren
Pertinent Antimicrobial Allergies:
penicillin - unknown, as a child
Height / Weight:
Height 5 ft 10 in
Actual Weight 77.6 kg
- Vital Signs / Lab Results
Temp Pulse Resp BP Pulse Ox
98.4 F 74 19 117/78 95
04/08/25 08:22 04/08/25 06:00 04/08/25 06:00 04/08/25 06:00 04/08/25 06:00
Lab Results - Hematology
04/05/25 04/06/25 04/07/25
13:58 04:51 04:15
WBC 11.3 H 15.1 H 8.4
04/08/25
03:42
WBC 6.1
Lab Results - Chemistry
04/05/25 04/06/25 04/07/25
13:58 04:51 04:15
BUN 31 H 26 H 16
Creatinine 1.0 1.0 0.8
Estimated Creat Clear 70 70 87
Albumin 4.0
04/08/25
03:42
BUN 14
Creatinine 0.7
Estimated Creat Clear 100
Albumin
04/05/25 04/05/25
13:58 17:45
Lactic Acid 1.9 Cancelled
Microbiology Results
04/05/25 17:30 Blood Culture - Preliminary
Blood/Venous S aureus-Methicillin Sensitive
Gram Stain - Preliminary
04/05/25 14:16 Blood Culture - Final
Blood/Venous S aureus-Methicillin Sensitive
Gram Stain - Final
04/05/25 13:58 Blood Culture - Final
Blood/Venous S aureus-Methicillin Sensitive
Gram Stain - Final
04/07/25 04:15 Blood Culture - Preliminary
Blood/Venous No Growth in 24 hours- Final report to follow
04/07/25 04:15 Blood Culture - Preliminary
Blood/Venous No Growth in 24 hours- Final report to follow
04/05/25 14:24 Blood Parasites Smear - Final
Blood/Venous
Therapeutic Drug Monitoring
Random Vancomycin 10.7 ug/ml 04/06/25 04:51
--- NOTE | 2025-04-08 11:12 | W.PN.CD ---
Today's Communication / Plan
-
no growth yet from Bcx 04/07
cont IV Abx
Impression / Plan
-
Bacteremia - acute, blood cultures positive for staphylococcus aureus (MSSA)
- on ABX, ID consulted.
- no endocarditis in NASIM 04/06: will still need 6 wks Abx given TAVR and ICD
-last Bcx + on 04/05, and no growth to date from 04/07
Severe - s/p TAVR 11/24/24.
- stable on NASIM
ICM/HFrEF - chronic.
- EF now 30-35% on echo 04/06/25.
- previous EF 10%.
- continue GDMT with Toprol, Entresto, SGLT2i, and Bumex.
- has MDT BiV ICD in place.
ICD - MDT BiV device.
- stable with normal function and followed in our outpatient device clinic.
CAD - severe 3 vessel.
- stable w/o angina.
- continue medical therapy.
Afib - s/p cardioversion 02/12/25 restoring NSR.
- on Eliquis, continue.
- asymptomatic.
Echo 04/06/25: EF 30-35%, mild mitral stenosis, s/p TAVR with peak/mean gradients across the aortic valve at 19/10 mmHg, mild/moderate paravalvular aortic regurgitation, enlarged right ventricular size with normal right ventricular systolic function,
mild/moderate tricuspid regurgitation, no vegetation visualized on valves or device leads within limits of TTE.
Physical Exam
Vital Signs/Labs
Vital Signs
Temp Pulse Resp BP Pulse Ox
98.4 F 71 21 113/80 96
04/08/25 08:22 04/08/25 08:54 04/08/25 08:54 04/08/25 08:54 04/08/25 09:51
04/07/25 04/08/25 04/09/25
06:59 06:59 06:59
Actual Weight 79.2 kg 77.6 kg
04/08/25 03:42
04/08/25 03:42
Magnesium 2.3 mg/dl (1.6-2.3) 04/08/25 03:42
04/08/25
03:42
[id number] Pept [id number]
Physical Exam
Constitutional: No acute distress and Comfortable
EENT: Moist mucous membranes
Cardiovascular: Rhythm & rate is regular, Pedal edema is absent, JVD pressure is normal and Systolic murmur absent
Respiratory: Respiratory effort normal and Lungs clear to auscul.
Neuro/Psych: AO x 3
Data Reviewed
-
Date of Service: April 08, 2025
EKG: Other (Tele: AsVp 70)
Labs: Labs Reviewed by me
[2025-04-08] MEDS: ENTRESTO 24 MG/26 MG 1 TAB PO (14:09)
[2025-04-08] MEDS: FARXIGA 10 MG PO (17:46)
--- NOTE | 2025-04-08 18:24 | PTCARENOTE ---
pt restarted on bumex today. urine output since 7 am 3,625. ambulated pt in white this am tolerated well.
[2025-04-08] MEDS: ENTRESTO 24 MG/26 MG PO (20:16)
--- NOTE | 2025-04-08 20:18 | PTCARENOTE ---
patient 's entresto parameters were hold for systolic less than 90. Patient bp 92/74. Patient was concerned with blood pressure because it was 111 systolic earlier in day before entresto. Patient would like to hold off on dose tonight since
systolic in in low 90s.
[2025-04-09] VITALS (25 sets, daily range): BP systolic 87–120; BP diastolic 56–87; BMI 24.2
[2025-04-09] MEDS: ANCEF 10 IV ×3 (05:27→22:20)
[2025-04-09 05:47] LABS: Hematocrit 37.1 % (39.0-52.0); Hemoglobin 12.2 g/dL (13.0-18.0); Mean Corp Hgb Conc. 32.9 g/dL (33.0-37.0); Mean Corpuscular Volume 79.4 fL (80.0-94.0); Nucleated Red Blood Cells % 0 % (-); Platelet Count 108 10^3/uL (130-400); Red Cell Dist. Width 23.3 % (11.5-14.5)
[2025-04-09 06:10] LABS: Blood Urea Nitrogen 13 mg/dl (9-20); Calcium 8.0 mg/dl (8.4-10.2); Carbon Dioxide 23 mmol/L (22-30); Chloride 111 mmol/L (98-107); Estimated Creatinine Clearance 100 ml/min; Glucose 89 mg/dl (70-99); Magnesium 2.1 mg/dl (1.6-2.3); Potassium 3.5 mmol/L (3.5-5.1); Sodium 139 mmol/L (135-145); eGFR > 60.00
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
[2025-04-09] MEDS: ELIQUIS 5 MG PO ×2 (08:35→20:05)
[2025-04-09] MEDS: LIPITOR 40 MG PO (08:35)
[2025-04-09] MEDS: PACERONE 200 MG PO (08:35)
[2025-04-09] MEDS: TRUSOPT 2% OPHTHALMIC SOLUTION 1 DROP BOTH EYES ×2 (08:36→20:06)
[2025-04-09] MEDS: BUMEX 2 MG PO (08:36)
[2025-04-09] MEDS: TOPROL XL 12.5 MG PO ×2 (08:36→20:05)
[2025-04-09] MEDS: KEPPRA 500 MG PO ×2 (08:36→20:06)
[2025-04-09] MEDS: ENTRESTO 24 MG/26 MG 1 TAB PO (08:36)
[2025-04-09 14:02] LABS: Lyme Antibody Screen, EIA Presump. Positive (Negative)
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
--- NOTE | 2025-04-09 16:12 | W.PN.CD ---
Today's Communication / Plan
-
Stable for discharge from CV standpoint
further workup for source of bacteremia?
Impression / Plan
-
Bacteremia - acute, blood cultures positive for staphylococcus aureus (MSSA)
- on ABX, ID consulted.
- no endocarditis in NASIM 04/06: will still need 6 wks Abx given TAVR and ICD
- last Bcx + on 04/05, and no growth to date from 04/07
- source unclear, further workup/imaigng needed? will query ID - denies recent dental work, procedures, non-healing wounds
Severe - s/p TAVR 11/24/24.
- stable on NASIM
ICM/HFrEF - chronic.
- EF now 30-35% on echo 04/06/25.
- previous EF 10%.
- continue GDMT with Toprol, Entresto, SGLT2i, and Bumex.
- has MDT BiV ICD in place.
ICD - MDT BiV device.
- stable with normal function and followed in our outpatient device clinic.
CAD - severe 3 vessel.
- stable w/o angina.
- continue medical therapy.
Afib - s/p cardioversion 02/12/25 restoring NSR.
- on Eliquis, continue.
- asymptomatic.
Echo 04/06/25: EF 30-35%, mild mitral stenosis, s/p TAVR with peak/mean gradients across the aortic valve at 19/10 mmHg, mild/moderate paravalvular aortic regurgitation, enlarged right ventricular size with normal right ventricular systolic function,
mild/moderate tricuspid regurgitation, no vegetation visualized on valves or device leads within limits of TTE.
Physical Exam
Vital Signs/Labs
Vital Signs
Temp Pulse Resp BP Pulse Ox
36.6 C 71 17 91/68 99
04/09/25 07:50 04/09/25 12:04 04/09/25 12:04 04/09/25 12:04 04/09/25 12:40
04/08/25 04/09/25 04/10/25
06:59 06:59 06:59
Actual Weight 77.6 kg 76.4 kg
04/09/25 05:26
04/09/25 05:26
Magnesium 2.1 mg/dl (1.6-2.3) 04/09/25 05:26
04/08/25
03:42
Zmb-[id number]-[id number] Pept [id number]
Physical Exam
Constitutional: Comfortable
Cardiovascular: Rhythm & rate is regular
Respiratory: Respiratory effort normal
Neuro/Psych: AO x 3
Data Reviewed
-
Date of Service: April 09, 2025
Medical Decision Making: Reviewed Test Results
EKG: Tracing Personally Visualized and interpreted
Echo: Tracing Personally Visualized and interpreted
Labs: Labs Reviewed by me
[2025-04-09] MEDS: FARXIGA 10 MG PO (17:40)
--- NOTE | 2025-04-09 19:45 | PTCARENOTE ---
day shift note. see nursing assessment. v paced on monitor. pt has no complaints. systolic bp in 90s most of day with maps greater than 65. pt denies weakness or dizziness. ambulated around unit x 1 with walker and supervision. repeat blood cultures
drawn. iv antibiotocs administered as ordered.
[2025-04-09] MEDS: ENTRESTO 24 MG/26 MG PO (20:05)
[2025-04-10] VITALS (33 sets, daily range): BP systolic 71–120; BP diastolic 57–79; PULSE 72; O2SAT 97; BMI 23.1
[2025-04-10] MEDS: ANCEF 10 IV ×3 (04:59→22:10)
--- NOTE | 2025-04-10 05:14 | PTCARENOTE ---
Patient AAOx3. RA sating high 90s. Blood cultures and labs drawn and sent. No acute events overnight. assessment and vitals charted. call pierre in reach.
[2025-04-10 05:43] LABS: Hematocrit 36.0 % (39.0-52.0); Hemoglobin 12.0 g/dL (13.0-18.0); Mean Corp Hgb Conc. 33.3 g/dL (33.0-37.0); Mean Corpuscular Volume 77.6 fL (80.0-94.0); Platelet Count 124 10^3/uL (130-400); Red Cell Dist. Width 23.0 % (11.5-14.5)
[2025-04-10 06:01] LABS: ALT (SGPT) 31 U/L (0-50); AST (SGOT) 39 U/L (17-59); Albumin 3.0 g/dl (3.5-5.0); Alkaline Phosphatase 90 U/L (38-126); Blood Urea Nitrogen 15 mg/dl (9-20); Calcium 7.9 mg/dl (8.4-10.2); Carbon Dioxide 26 mmol/L (22-30); Chloride 109 mmol/L (98-107); Estimated Creatinine Clearance 100 ml/min; Glucose 87 mg/dl (70-99); Potassium 3.5 mmol/L (3.5-5.1); Sodium 139 mmol/L (135-145); Total Protein 5.8 g/dl (6.3-8.2); eGFR > 60.00
[2025-04-10] MEDS: BUMEX 2 MG PO (07:13)
[2025-04-10] MEDS: KEPPRA 500 MG PO ×2 (07:14→20:19)
[2025-04-10] MEDS: ELIQUIS 5 MG PO ×2 (07:14→20:19)
[2025-04-10] MEDS: ENTRESTO 24 MG/26 MG 1 TAB PO (07:14)
[2025-04-10] MEDS: LIPITOR 40 MG PO (07:14)
[2025-04-10] MEDS: PACERONE 200 MG PO (07:15)
[2025-04-10] MEDS: TOPROL XL 12.5 MG PO ×2 (07:15→22:10)
[2025-04-10] MEDS: TRUSOPT 2% OPHTHALMIC SOLUTION 1 DROP BOTH EYES ×2 (07:16→20:20)
[2025-04-10 08:01] LABS: Nucleated Red Blood Cells % 0 % (-)
--- NOTE | 2025-04-10 08:13 | PTCARENOTE ---
Patient received from log turner RN. Resting in bed without any complaints. Patient given morning meds and assisted OOB to chair, morning hygiene performed by patient. Patient ordered breakfast. Morning meds administered. Vital sign within normal
limits. Patient requesting stool softener last BM two days ago. All questions and concerns answered by this RN.
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
--- NOTE | 2025-04-10 09:44 | CM ---
Patient with Dx sepsis. Room air. Receiving IV cefazolin. PT/OT 04/08; supervision, recommended HH.
Script received from Dr Antunez for IV cefazolin 2g IV Q8h, via PICC/midline, weekly labs, end date 05/22/25.
Messages with Dr Antunez & Resident Vibha; blood cultures will be finalized & patient will be ready for d/c 04/12.
Spoke with patient who initially asked if he could start infusion and then go down to [facility] from 04/17 to 04/21 and continue IV Abx while there. CM offered to inquire with [facility] and suggested patient contact his airline ([email or web address])
if ok to bring cooler on plane with the meds. Patient then decided he did not want to go to [place] with his , but rather wants to stay here for duration of IV Abx regimen. Patient feels he can manage IV administration by himself at home.
Spoke with [facility], PICC line is definitely needed rather than midline. She is unsure if separate nursing agency is needed for ongoing home teaching.
Phone calls to [facility]; referral sent via [employer].
Plan follow up with [facility] re; home infusion and if separate HH agency needed for home teaching.
--- NOTE | 2025-04-10 09:55 | W.PN.CD ---
Today's Communication / Plan
-
mri spine, ICD should be turned off for scan
stable from CV perspective, cont. current meds
Impression / Plan
-
Bacteremia - acute, blood cultures positive for staphylococcus aureus (MSSA)
- on ABX, ID consulted.
- no endocarditis in NASIM 04/06: will still need 6 wks Abx given TAVR and ICD
- last Bcx + on 04/05, and no growth to date from 04/07
- source unclear, denies recent dental work, procedures, non-healing wounds; plan for MRI spine today (ICD should be turned off for scan)
Severe - s/p TAVR 11/24/24.
- stable on NASIM
ICM/HFrEF - chronic.
- EF now 30-35% on echo 04/06/25.
- previous EF 10%.
- continue GDMT with Toprol, Entresto, SGLT2i, and Bumex.
- has MDT BiV ICD in place.
ICD - MDT BiV device.
- stable with normal function and followed in our outpatient device clinic.
CAD - severe 3 vessel.
- stable w/o angina.
- continue medical therapy.
Afib - s/p cardioversion 02/12/25 restoring NSR.
- on Eliquis, continue.
- asymptomatic.
Echo 04/06/25: EF 30-35%, mild mitral stenosis, s/p TAVR with peak/mean gradients across the aortic valve at 19/10 mmHg, mild/moderate paravalvular aortic regurgitation, enlarged right ventricular size with normal right ventricular systolic function,
mild/moderate tricuspid regurgitation, no vegetation visualized on valves or device leads within limits of TTE.
Physical Exam
Vital Signs/Labs
Vital Signs
Temp Pulse Resp BP Pulse Ox
36.4 C 71 20 93/62 97
04/10/25 03:21 04/10/25 09:00 04/10/25 09:00 04/10/25 09:00 04/10/25 09:00
04/09/25 04/10/25 04/11/25
06:59 06:59 06:59
Actual Weight 76.4 kg 73.085 kg
04/10/25 05:10
04/10/25 05:10
Magnesium 2.1 mg/dl (1.6-2.3) 04/09/25 05:26
04/08/25
03:42
[id number] Pept [id number]
Physical Exam
Constitutional: Comfortable
Cardiovascular: Rhythm & rate is regular
Respiratory: Respiratory effort normal
Neuro/Psych: AO x 3
Data Reviewed
-
Date of Service: April 10, 2025
Medical Decision Making: Reviewed Test Results
Labs: Labs Reviewed by me
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
[2025-04-10] MEDS: FARXIGA 10 MG PO (18:03)
[2025-04-10] MEDS: ENTRESTO 24 MG/26 MG PO (20:18)
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
[2025-04-11] VITALS (24 sets, daily range): BP systolic 75–121; BP diastolic 52–73; PULSE 71–77; O2SAT 97–100; BMI 23.5
--- NOTE | 2025-04-11 01:25 | PTCARENOTE ---
PM entresto held due to BP 84/62. No c/o lightheadedness/dizziness/drowsiness.
[2025-04-11] MEDS: ANCEF 10 IV ×3 (06:32→21:12)
[2025-04-11] MEDS: PACERONE 200 MG PO (07:18)
[2025-04-11] MEDS: ENTRESTO 24 MG/26 MG 1 TAB PO ×2 (07:18→20:12)
[2025-04-11] MEDS: TOPROL XL 12.5 MG PO ×2 (07:18→20:13)
[2025-04-11] MEDS: BUMEX 2 MG PO (07:18)
[2025-04-11] MEDS: TRUSOPT 2% OPHTHALMIC SOLUTION 1 DROP BOTH EYES ×2 (07:19→20:14)
[2025-04-11] MEDS: LIPITOR 40 MG PO (07:19)
[2025-04-11] MEDS: KEPPRA 500 MG PO ×2 (07:19→20:13)
[2025-04-11] MEDS: ELIQUIS 5 MG PO ×2 (07:19→20:13)
[2025-04-11 10:17] LABS: Hematocrit 38.8 % (39.0-52.0); Hemoglobin 12.6 g/dL (13.0-18.0); Mean Corp Hgb Conc. 32.5 g/dL (33.0-37.0); Mean Corpuscular Volume 79.2 fL (80.0-94.0); Nucleated Red Blood Cells % 0 % (-); Platelet Count 153 10^3/uL (130-400); Red Cell Dist. Width 23.5 % (11.5-14.5)
[2025-04-11 10:26] LABS: INR 1.22; PT 15.9 Sec (11.4-14.6)
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
--- NOTE | 2025-04-11 10:27 | VATNOTE ---
Spoke with JAROCHO GOMEZ via [facility]: OK to place PICC at this time with pending blood cultures.
[2025-04-11 10:54] LABS: ALT (SGPT) 34 U/L (0-50); AST (SGOT) 50 U/L (17-59); Albumin 3.5 g/dl (3.5-5.0); Alkaline Phosphatase 82 U/L (38-126); Blood Urea Nitrogen 15 mg/dl (9-20); Calcium 8.3 mg/dl (8.4-10.2); Carbon Dioxide 28 mmol/L (22-30); Chloride 105 mmol/L (98-107); Estimated Creatinine Clearance 87 ml/min; Glucose 132 mg/dl (70-99); Potassium 3.4 mmol/L (3.5-5.1); Sodium 139 mmol/L (135-145); Total Protein 6.5 g/dl (6.3-8.2); eGFR > 60.00
--- NOTE | 2025-04-11 13:39 | CM ---
Addendum entered by Annalee Eastman RN 04/11/25 14:01:
No additional HH agency needed - [facility] nurse will see patient at home.
Addendum entered by Annalee Eastman RN 04/11/25 14:00:
Plan home tomorrow with [facility] for home IV Abx.
Original Note:
Patient with Dx sepsis. Room air. Receiving IV cefazolin. PICC line placed today. PT/OT 04/08; supervision, recommended HH.
Spoke with Dr Antunez; patient is cleared for d/c home from ID standpoint. Script already provided is final script.
Spoke with Dr Rodríguez; plan for d/c home tomorrow.
Spoke with Isabel, [facility]; confirmed script provided is final script. Patient has 100% coverage with no out of pocket cost. Isabel will do teaching visit today for home IV Abx. Provided PICC Insertion report, CXR report. Isabel suggests
patient receive 2pm IV Abx tomorrow before d/c and then they will deliver home IV Abx after that, once patient arrives home.
Met with patient who agrees to [facility] teaching visit today. He agrees with plan for discharge home tomorrow after 2pm cefazolin dose, and is aware [facility] will deliver meds/supplies to home tomorrow for his evening dose. IMM completed.
will provide transport home tomorrow.
--- NOTE | 2025-04-11 14:02 | W.PN.CD ---
Today's Communication / Plan
-
stable for d/c from cv perspective
Impression / Plan
-
Bacteremia - acute, blood cultures positive for staphylococcus aureus (MSSA)
- on ABX, ID consulted.
- no endocarditis in NASIM 04/06: will still need 6 wks Abx given TAVR and ICD
- last Bcx + on 04/05, and no growth to date from 04/07
- source unclear, denies recent dental work, procedures, non-healing wounds; MRI spine w/o source, no need for CT as MSSA unlikely to be intra-abdoiminal
- PICC line placed with plan for ict development manager IV abx per ID
Severe - s/p TAVR 11/24/24.
- stable on NASIM
ICM/HFrEF - chronic.
- EF now 30-35% on echo 04/06/25.
- previous EF 10%.
- continue GDMT with Toprol, Entresto, SGLT2i, and Bumex.
- has MDT BiV ICD in place.
ICD - MDT BiV device.
- stable with normal function and followed in our outpatient device clinic.
CAD - severe 3 vessel.
- stable w/o angina.
- continue medical therapy.
Afib - s/p cardioversion 02/12/25 restoring NSR.
- on Eliquis, continue.
- asymptomatic.
Echo 04/06/25: EF 30-35%, mild mitral stenosis, s/p TAVR with peak/mean gradients across the aortic valve at 19/10 mmHg, mild/moderate paravalvular aortic regurgitation, enlarged right ventricular size with normal right ventricular systolic function,
mild/moderate tricuspid regurgitation, no vegetation visualized on valves or device leads within limits of TTE.
Physical Exam
Vital Signs/Labs
Vital Signs
Temp Pulse Resp BP Pulse Ox
36.6 C 71 16 84/59 98
04/11/25 07:05 04/11/25 11:00 04/11/25 04:00 04/11/25 11:00 04/11/25 10:14
04/10/25 04/11/25 04/12/25
06:59 06:59 06:59
Actual Weight 73.085 kg 74.2 kg
04/11/25 10:07
04/11/25 10:07
PT 15.9 Sec (11.4-14.6) H 04/11/25 10:07
INR 1.22 04/11/25 10:07
Magnesium 2.1 mg/dl (1.6-2.3) 04/09/25 05:26
04/08/25
03:42
Ebv-[id number] Pept [id number]
Physical Exam
Constitutional: No acute distress
Cardiovascular: Rhythm & rate is regular
Respiratory: Respiratory effort normal
Neuro/Psych: AO x 3
Data Reviewed
-
Date of Service: April 11, 2025
Medical Decision Making: Reviewed Test Results
X-Ray/CT/US/MRI/NUC/PET: Report Reviewed by me
Labs: Labs Reviewed by me
[2025-04-11] MEDS: FARXIGA 10 MG PO (17:33)
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
[2025-04-11] MEDS: KCL 20 MEQ PO (21:11)
--- NOTE | 2025-04-11 22:09 | PTCARENOTE ---
Caring for pt overnight. aaox3, pleasant. Normal temps. No pain. Ivabx through PICC, education provided to patient. VSS. No changes in assessment. Will monitor.
[2025-04-12] VITALS (15 sets, daily range): BP systolic 79–126; BP diastolic 58–91; PULSE 70; O2SAT 98; BMI 25.2
[2025-04-12 04:44] LABS: Hematocrit 35.4 % (39.0-52.0); Hemoglobin 11.6 g/dL (13.0-18.0); Mean Corp Hgb Conc. 32.8 g/dL (33.0-37.0); Mean Corpuscular Volume 80.3 fL (80.0-94.0); Nucleated Red Blood Cells % 0 % (-); Platelet Count 140 10^3/uL (130-400); Red Cell Dist. Width 23.1 % (11.5-14.5)
[2025-04-12 05:03] LABS: Blood Urea Nitrogen 16 mg/dl (9-20); Calcium 8.3 mg/dl (8.4-10.2); Carbon Dioxide 28 mmol/L (22-30); Chloride 108 mmol/L (98-107); Estimated Creatinine Clearance 100 ml/min; Glucose 78 mg/dl (70-99); Potassium 3.9 mmol/L (3.5-5.1); Sodium 139 mmol/L (135-145); eGFR > 60.00
[2025-04-12] MEDS: ANCEF 10 IV ×2 (05:38→15:06)
[2025-04-12] MEDS: TRUSOPT 2% OPHTHALMIC SOLUTION 1 DROP BOTH EYES (07:19)
[2025-04-12] MEDS: LIPITOR 40 MG PO (07:19)
[2025-04-12] MEDS: KEPPRA 500 MG PO (07:19)
[2025-04-12] MEDS: ELIQUIS 5 MG PO (07:19)
[2025-04-12] MEDS: BUMEX 2 MG PO (07:28)
[2025-04-12] MEDS: PACERONE 200 MG PO (07:28)
[2025-04-12] MEDS: TOPROL XL 12.5 MG PO (07:28)
[2025-04-12] MEDS: ENTRESTO 24 MG/26 MG 1 TAB PO (07:29)
--- NOTE | 2025-04-12 08:22 | PTCARENOTE ---
Patient received from manufacturing shift supervisor RN. AAOx3 reports no discomfort at this time. OOB to chair eating breakfast. BP on monitor reading in the 120's systolic over 60's. Patient asked to recheck BP -RN obtained bp several time in different locations of
body. Manual obtained-within normal limit. Patient eager to go home.
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
--- NOTE | 2025-04-12 13:27 | W.PN.CD ---
Today's Communication / Plan
-
ok for discharge on current medications
Impression / Plan
-
Bacteremia - acute, blood cultures positive for staphylococcus aureus (MSSA)
- on ABX, ID consulted.
- no endocarditis in NASIM 04/06: will still need 6 wks Abx given TAVR and ICD
- last Bcx + on 04/05, and no growth to date from 04/07
- source unclear, denies recent dental work, procedures, non-healing wounds; MRI spine w/o source, no need for CT as MSSA unlikely to be intra-abdoiminal
- PICC line placed with plan for terminologist IV abx per ID
Severe - s/p TAVR 11/24/24.
- stable on NASIM
ICM/HFrEF - chronic.
- EF now 30-35% on echo 04/06/25.
- previous EF 10%.
- continue GDMT with Toprol, Entresto, SGLT2i, and Bumex.
- has MDT BiV ICD in place.
ICD - MDT BiV device.
- stable with normal function and followed in our outpatient device clinic.
CAD - severe 3 vessel.
- stable w/o angina.
- continue medical therapy.
Afib - s/p cardioversion 02/12/25 restoring NSR.
- on Eliquis, continue.
- asymptomatic.
Echo 04/06/25: EF 30-35%, mild mitral stenosis, s/p TAVR with peak/mean gradients across the aortic valve at 19/10 mmHg, mild/moderate paravalvular aortic regurgitation, enlarged right ventricular size with normal right ventricular systolic function,
mild/moderate tricuspid regurgitation, no vegetation visualized on valves or device leads within limits of TTE.
Subjective: kept overnight given so mild asymptomatic hypotension. ambulated today and felt well.
Physical Exam
Vital Signs/Labs
Vital Signs
Temp Pulse Resp BP Pulse Ox
36.6 C 71 12 99/59 97
04/12/25 11:05 04/12/25 07:29 04/12/25 06:00 04/12/25 07:29 04/12/25 06:00
04/11/25 04/12/25 04/13/25
06:59 06:59 06:59
Actual Weight 74.2 kg 79.7 kg
04/12/25 04:10
04/12/25 04:10
PT 15.9 Sec (11.4-14.6) H 04/11/25 10:07
INR 1.22 04/11/25 10:07
Magnesium 2.1 mg/dl (1.6-2.3) 04/09/25 05:26
04/08/25
03:42
[id number]-[id number]-Bfhynmbtvvo Pept [id number]
Physical Exam
Constitutional: No acute distress and Comfortable
Cardiovascular: Rhythm & rate is regular
Respiratory: Respiratory effort normal
Neuro/Psych: AO x 3
Data Reviewed
-
Date of Service: April 12, 2025
Medical Decision Making: Reviewed Test Results
Labs: Labs Reviewed by me
--- NOTE | 2025-04-12 14:09 | CM ---
Patient with Dx sepsis. Room air. Receiving IV cefazolin. PICC line placed. PT/OT 04/08; supervision, recommended HH.
Spoke with Isabel, [facility] (fax [phone]); confirmed that patient is discharging home today. Isabel suggests patient receive 2pm IV Abx today before d/c and then they will deliver home IV Abx after that, once patient arrives home.
Met with patient who was preparing for discharge.
The patient says he feels ready for discharge home today. IMM completed.
He is aware he needs to receive the 2pm Abx dose here prior to d/c.
He states he feels able to do the home Iv Abx administration - he watched the instructional video [facility] provided.
His will provide transport home today.
Plan home today with [facility] for home IV Abx.
[2025-04-12 14:33] LABS: Lyme Ab Western Blot IgG Negative (Negative); Lyme Ab Western Blot IgM Negative (Negative)
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
== END 2025-04-12 16:01 | disposition home health service (06) | DRG 872 ==
LOC: IMU 17:50
PROVIDERS: Nurse Practitioner Gerontology; Physician Assistant Medical; Student in an Organized Health Care Education/Training Program; ADMITTING PHYSICIAN Hospitalist; ATTENDING PHYSICIAN Family Medicine; CONSULT PHYSICIAN Internal Medicine; CONSULT PHYSICIAN Internal Medicine Infectious Disease; EMERGENCY PHYSICIAN Emergency Medicine; FAMILY PHYSICIAN Internal Medicine
PROC: 02HV33Z Insertion of Infusion Device into Superior Vena Cava, Percutaneous Approach (ICD-10-PCS; 2025-04-11)
DX: A41.01 Sepsis due to Methicillin susceptible Staphylococcus aureus (principal); I50.22 Chronic systolic (congestive) heart failure; I48.19 Other persistent atrial fibrillation; E87.20 Acidosis, unspecified; G40.109 Localization-related (focal) (partial) symptomatic epilepsy and epileptic syndromes with simple partial seizures, not intractable, without status epilepticus; Z95.810 Presence of automatic (implantable) cardiac defibrillator; I25.10 Atherosclerotic heart disease of native coronary artery without angina pectoris; I11.0 Hypertensive heart disease with heart failure; Z79.01 Long term (current) use of anticoagulants; E78.5 Hyperlipidemia, unspecified; Z87.891 Personal history of nicotine dependence; D69.6 Thrombocytopenia, unspecified; I25.5 Ischemic cardiomyopathy; E87.6 Hypokalemia; I95.9 Hypotension, unspecified
CPT/HCPCS: 70450; 71045; 71046; 72157; 72158; 80048; 80053; 80202; 81003; 81015; 83605; 83735; 83880; 85025; 85027; 85610; 85652; 86140; 86617; 86618; 87015; 87040; 87150; 87186; 87205; 87207; 87811; 93005; 93306; 93312; 93320; 93325; 96361; 96365; 96366; 96367; 96375; 97163; 97166; 97530; 97535; 99285; A9575

== ENCOUNTER 2025-09-23 13:31 | Inpatient (IN) | payer OTHER, SELFPAY ==
[2025-09-23] VITALS (8 sets, daily range): BP systolic 82–127; BP diastolic 46–71; BMI 25.9; BMI 26.4
--- NOTE | 2025-09-23 09:50 | ED.GENMED ---
History of Present Illness
<Ida Nagy PA-C - Last Filed: 09/23/25 13:40>
General
Chief Complaint: Facial Problem
Source: patient
Exam Limitations: none
Time Seen by Provider: 09/23/25 09:38
History of Present Illness
History of Present Illness:
70yoM with a history of CHF with defibrillator, coronary artery disease, atrial fibrillation, aortic stenosis s/p TAVR, prior CVA, and hypertension presenting for evaluation of facial swelling. Patient started with a left upper toothache a few days
ago. He was using Orajel and dental pain has since resolved. He noticed some mild swelling in the left maxillary region yesterday. He woke up this morning with worsening swelling and decided to come to the ED for evaluation. His swelling has
improved since waking up this morning. He denies any fevers, chills, dysphagia, rash, visual changes. He last saw his dentist about a year ago.
Past History
<Ida Nagy PA-C - Last Filed: 09/23/25 13:40>
Past History
ED Past Medical History: Arrthythmia, CAD, CHF, CVA, HTN, Renal failure and Valvular disease
ED Past Surgical History: Cardiac and Orthopedic
Social History
Tobacco: Non-smoker
Alcohol: Occasional
Drug: None
Personal:
Living: with family
Phy Exam
<Ida Nagy PA-C - Last Filed: 09/23/25 13:40>
General Physical Exam
General Presentation: well appearing and no apparent distress
General Skin: warm and dry
General Habitus: normal
General Mental: alert
ENT Exam
ENT Exam: neck supple, normocephalic and other (Moderate amount of L maxillary swelling that extends to lower eyelid. No obvious dental abscess and back L upper molars are missing. )
Additional ENT: No elevation of floor of mouth. Normal phonation.
Eye Exam
Eye Exam: PERRL, EOMI, conjunctiva normal and other (PERRL. EOMs intact without pain. No conjunctival injection.)
Pulmonary Exam
Pulmonary Exam: no respiratory distress
Neurological Exam
Neurological Exam: alert
Fatou Coma Scale
Eye Opening: Spontaneous
Verbal Response: Oriented
Motor Response: Obeys Commands
GCS Total Score: 15
Skin Exam
Skin Exam: warm/dry
Psychiatric Exam
Psychiatric Exam: normal mood/affect
Course
<Ida Nagy PA-C - Last Filed: 09/23/25 13:40>
Orders/Labs/Results
Orders:
Orders
09/23/25 09:46
CT Facial Bones W/ Iv Contrast Urgent
Comment:
Reason For Exam: L maxillary swelling
Dexamethasone Sod Phosphate [Decadron] 10 mg IV NOW STA
09/23/25 09:56
Complete Blood Count/With Diff Urgent
Comprehensive Metabolic Panel Urgent
09/23/25 12:32
CefTRIAXone [Rocephin] 2,000 mg IV NOW STA
09/23/25 12:40
MetroNIDAZOLE 500 MG/100 ML [Flagyl 500 mg] 100 ml IV NOW
09/23/25 12:50
Blood Culture Q30M
DINESH Source: Blood/Venous
Specimen Description:
09/23/25 12:53
Sterile Water [Sterile Water For Injection] 20 ml .ROUTE .STK-MED
09/23/25 13:21
Admit/Transfer Patient As Directed
Co-Sign Provider:
Level of Care: Inpatient admission
Assign to:: Medical/Surgical
Physician / Group: Hospitalist
Diagnosis: Facial infection
Reason for Hospitalization: fACIAL INFECTION
Expected length of stay greater than two midnights?: Yes
ELOS- Estimated Length of Stay in days: 3
I certify the patient meets the requirements for IP care: Yes
PRN Pain Medication Management As Directed
May give lesser potent ordered pain med per pt: Yes
preference::
Protocol:: Medication orders for pain may be administered in a
manner that supports deferring to patient preference
when the pt is:
- Requesting an ordered lesser potent pain medication.
Least to most potent pain medications are defined
as: acetaminophen < NSAID < tramadol < opioids
(morphine, oxycodone, hydromorphone).
- Requesting a lesser dose of the same medication IF
ORDERED.
- Requesting a less intrusive route of administration
if both routes are prescribed by the provider (PO <
IV).
09/23/25 13:23
Code Status As Directed
Resuscitation Status: Full Code
09/23/25 13:24
INFECTIOUS DISEASE CONSULT Urgent
Consulting Provider: Gilbert Henderson
Was physician already notified: Yes
Reason for consult: FACIAL CELLULITIS
09/23/25 13:25
Blood Culture Q30M
DINESH Source: Blood/Venous
Specimen Description:
Abnormal Lab Results
09/23/25
09:56
MCHC 32.8 L g/dL
(33.0-37.0)
RDW 15.6 H %
(11.5-14.5)
Absolute Neuts (auto) 8.1 H 10^3/uL
(1.4-6.5)
Absolute Lymphs (auto) 1.0 L 10^3/uL
(1.2-3.4)
Absolute Monos (auto) 1.6 H 10^3/uL
(0.1-0.6)
Lymphocytes % 9.2 L %
(20.5-51.1)
Monocytes % 14.9 H %
(1.7-9.3)
BUN 26 H mg/dl
(9-20)
Glucose 123 H mg/dl
(70-99)
Calcium 8.3 L mg/dl
(8.4-10.2)
09/23/25 09:56
09/23/25 09:56
Vital Signs
Initial and Last Documented VS:
Initial Vital Signs
Temp Pulse Resp BP Pulse Ox
99.4 F 102 20 127/71 97
09/23/25 09:22 09/23/25 09:22 09/23/25 09:22 09/23/25 09:22 09/23/25 09:22
Last Documented Vital Signs
Temp Pulse Resp BP Pulse Ox
99.4 F 79 16 96/66 97
09/23/25 09:22 09/23/25 12:58 09/23/25 12:58 09/23/25 12:58 09/23/25 09:51
<Reginald Miller MD - Last Filed: 09/23/25 12:40>
Orders/Labs/Results
Orders:
Orders
09/23/25 09:46
CT Facial Bones W/ Iv Contrast Urgent
Comment:
Reason For Exam: L maxillary swelling
Dexamethasone Sod Phosphate [Decadron] 10 mg IV NOW STA
09/23/25 09:56
Complete Blood Count/With Diff Urgent
Comprehensive Metabolic Panel Urgent
09/23/25 12:32
CefTRIAXone [Rocephin] 2,000 mg IV NOW STA
09/23/25 12:40
MetroNIDAZOLE 500 MG/100 ML [Flagyl 500 mg] 100 ml IV NOW
09/23/25 12:50
Blood Culture Q30M
DINESH Source: Blood/Venous
Specimen Description:
09/23/25 12:53
Sterile Water [Sterile Water For Injection] 20 ml .ROUTE .STK-MED
09/23/25 13:21
Admit/Transfer Patient As Directed
Co-Sign Provider:
Level of Care: Inpatient admission
Assign to:: Medical/Surgical
Physician / Group: Hospitalist
Diagnosis: Facial infection
Reason for Hospitalization: fACIAL INFECTION
Expected length of stay greater than two midnights?: Yes
ELOS- Estimated Length of Stay in days: 3
I certify the patient meets the requirements for IP care: Yes
PRN Pain Medication Management As Directed
May give lesser potent ordered pain med per pt: Yes
preference::
Protocol:: Medication orders for pain may be administered in a
manner that supports deferring to patient preference
when the pt is:
- Requesting an ordered lesser potent pain medication.
Least to most potent pain medications are defined
as: acetaminophen < NSAID < tramadol < opioids
(morphine, oxycodone, hydromorphone).
- Requesting a lesser dose of the same medication IF
ORDERED.
- Requesting a less intrusive route of administration
if both routes are prescribed by the provider (PO <
IV).
09/23/25 13:23
Code Status As Directed
Resuscitation Status: Full Code
09/23/25 13:24
INFECTIOUS DISEASE CONSULT Urgent
Consulting Provider: Gilbert Henderson
Was physician already notified: Yes
Reason for consult: FACIAL CELLULITIS
09/23/25 13:25
Blood Culture Q30M
DINESH Source: Blood/Venous
Specimen Description:
Abnormal Lab Results
09/23/25
09:56
MCHC 32.8 L g/dL
(33.0-37.0)
RDW 15.6 H %
(11.5-14.5)
Absolute Neuts (auto) 8.1 H 10^3/uL
(1.4-6.5)
Absolute Lymphs (auto) 1.0 L 10^3/uL
(1.2-3.4)
Absolute Monos (auto) 1.6 H 10^3/uL
(0.1-0.6)
Lymphocytes % 9.2 L %
(20.5-51.1)
Monocytes % 14.9 H %
(1.7-9.3)
BUN 26 H mg/dl
(9-20)
Glucose 123 H mg/dl
(70-99)
Calcium 8.3 L mg/dl
(8.4-10.2)
09/23/25 09:56
09/23/25 09:56
Vital Signs
Initial and Last Documented VS:
Initial Vital Signs
Temp Pulse Resp BP Pulse Ox
99.4 F 102 20 127/71 97
09/23/25 09:22 09/23/25 09:22 09/23/25 09:22 09/23/25 09:22 09/23/25 09:22
Last Documented Vital Signs
Temp Pulse Resp BP Pulse Ox
99.4 F 79 16 96/66 97
09/23/25 09:22 09/23/25 12:58 09/23/25 12:58 09/23/25 12:58 09/23/25 09:51
<Ida Nagy PA-C - Last Filed: 09/23/25 13:40>
MDM/Problems Addressed
Differential Diagnosis Includes:
70yoM here with facial swelling x 1 day that was preceded by dental pain. HR 102 in triage. Temp 99.4. Moderate amount of L maxillary swelling noted on exam that extends to the lower eyelid. No visualized dental abscess. Differential diagnosis
includes but is not limited to: Odontogenic infection/abscess, facial cellulitis, allergic reaction
Initial ED plan: Basic labs and CT facial bone with contrast. IV Decadron ordered for swelling.
<Ida Nagy PA-C - Last Filed: 09/23/25 13:40>
*Pulse Oximetry
SaO2: 97
Oxygen Mode of Delivery: Room air
Patient hypoxic: no
*Critical Care Note
Total Time (30-74mins, 75-104mins- exclusive of procedures): Not Applicable
<Ida Nagy PA-C - Last Filed: 09/23/25 13:40>
Update Note
Update Note:
CT shows severe cellulitis of the left face as well as severe maxillary sinusitis and mild infraorbital cellulitis in the extraconal inferior left orbit. Given orbital involvement, patient will require hospitalization. Blood cultures and IV
Rocephin/Flagyl ordered. Patient admitted for further management.
ED Attending Note
<Ida Nagy PA-C - Last Filed: 09/23/25 13:40>
-
Portions of this chart may have been created with voice recognition software.� Occasional wrong word or��sound alike� substitutions may have occurred due to the inherent limitations of voice recognition software.
<Reginald Miller MD - Last Filed: 09/23/25 12:40>
ED Attending Note
Patient seen and examined by attending physician: Yes
I performed the substantive portion of visit, reviewed & personally made and approve the management plan that is documented in note by myself or NITIN.: Yes
ED Attending Note:
70-year-old male left facial swelling progressive over the last 24 hours. No fever or chills. No trouble swallowing. No eye pain. No photophobia. No pain with eye motion. Relatively recent history of MSSA bacteremia.
On exam patient is nontoxic in no distress. He is mild left facial swelling and mild erythematous hue to the cheek. More swelling noted at left mandible. No fluctuance. Teeth appear within normal limits although posterior molars are gone. No
obvious intraoral abscess. No airway issues. No pain with eye motion. Orbit is grossly normal although mild periorbital swelling
Impression CT scan shows severe cellulitis and intraorbital early cellulitis. Warrants IV antibiotics and admission
Discharge Plan
Departure
Patient Disposition: Admit
Date of Disposition: 09/23/25
Time of Disposition: 12:42
Presentation/result/management discussed w/ accepting MD/DO: Hospitalist
Discharge Problem:
Facial cellulitis
Interventions
Interventions:
*Risk Screen - Suicide Last Done: 09/23/25 09:22
*General Assessment Last Done: 09/23/25 09:22
*Neglect/Abuse Screening Last Done: 09/23/25 09:22
*ED COVID-19 Vaccine History Last Done: 09/23/25 09:59
*ED Influenza Vaccine History Last Done: 09/23/25 09:59
[facility] Fall Risk Assessment Tool Last Done: 09/23/25 09:59
ED- Neurological Assessment Last Done: 09/23/25 09:55
ED-Skin Assessment Last Done: 09/23/25 09:55
[2025-09-23] MEDS: DECADRON 10 MG IV (10:05)
[2025-09-23 10:07] LABS: Hematocrit 42.1 % (39.0-52.0); Hemoglobin 13.8 g/dL (13.0-18.0); Mean Corp Hgb Conc. 32.8 g/dL (33.0-37.0); Mean Corpuscular Volume 83.0 fL (80.0-94.0); Nucleated Red Blood Cells % 0 % (-); Platelet Count 141 10^3/uL (130-400); Red Cell Dist. Width 15.6 % (11.5-14.5)
[2025-09-23 10:23] LABS: ALT (SGPT) 24 U/L (0-50); AST (SGOT) 29 U/L (17-59); Albumin 4.2 g/dl (3.5-5.0); Alkaline Phosphatase 82 U/L (38-126); Blood Urea Nitrogen 26 mg/dl (9-20); Calcium 8.3 mg/dl (8.4-10.2); Carbon Dioxide 25 mmol/L (22-30); Chloride 101 mmol/L (98-107); Estimated Creatinine Clearance 63 ml/min; Glucose 123 mg/dl (70-99); Potassium 4.0 mmol/L (3.5-5.1); Sodium 135 mmol/L (135-145); Total Protein 7.6 g/dl (6.3-8.2); eGFR > 60.00
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
[2025-09-23] MEDS: ROCEPHIN 2000 MG IV ×2 (13:24→22:59)
--- NOTE | 2025-09-23 13:37 | EDCM ---
Reviewed chart. Pt has a history of CHF, CAD, Afib, Aortic stenosis s/p TAVR, CVA, HTN and Renal failure. Pt has AICD.
Being admitted with facial swelling, possible cellulitis.
Met with pt and his bedside in ED. They live in [address] [facility]. 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
Independent in ADLs, personal care and ambulation at baseline. Does not use assistive device but does had RW, SPC and BP cuff in home.
Confirms prescription coverage.
Hx [facility] for home abx in March, no hx SNF
Anticipate discharge home when medically stable, CM will continue to follow for all discharge planning needs.
[2025-09-23] MEDS: FLAGYL 500 MG 100 IV (13:48)
--- NOTE | 2025-09-23 18:22 | PTCARENOTE ---
Pt was received from ED at 1730. Pt ambulated to the room. Swelling noticed on the left face, significantly improved per pt. VSS. Pt oriented to the room and the care plan.
[2025-09-23] MEDS: KCL 20 MEQ PO (18:32)
[2025-09-23] MEDS: LIPITOR 40 MG PO (18:32)
[2025-09-23] MEDS: FARXIGA 10 MG PO (18:32)
[2025-09-23] MEDS: ELIQUIS 5 MG PO (20:00)
[2025-09-23] MEDS: KEPPRA 500 MG PO (20:00)
[2025-09-23] MEDS: TRUSOPT 2% OPHTHALMIC SOLUTION 1 DROP BOTH EYES (20:01)
[2025-09-23] MEDS: FLAGYL 750 MG 150 IV (21:49)
[2025-09-23] MEDS: STERILE WATER FOR INJECTION 20 ML IV (23:00)
[2025-09-23] MEDS: NSS 500 IV (23:18)
[2025-09-24] MEDS: ENTRESTO 24 MG/26 MG PO (00:05)
[2025-09-24] MEDS: TOPROL XL PO (00:05)
[2025-09-24 00:55] VITALS: BP 93/63
[2025-09-24] MEDS: FLAGYL 750 MG 150 IV (04:59)
[2025-09-24 06:04] VITALS: BP 99/76
[2025-09-24 07:01] VITALS: BP 87/55
[2025-09-24 07:37] LABS: Hematocrit 41.4 % (39.0-52.0); Hemoglobin 13.6 g/dL (13.0-18.0); Mean Corp Hgb Conc. 32.9 g/dL (33.0-37.0); Mean Corpuscular Volume 85.0 fL (80.0-94.0); Platelet Count 141 10^3/uL (130-400); Red Cell Dist. Width 15.4 % (11.5-14.5)
[2025-09-24 08:00] LABS: Blood Urea Nitrogen 42 mg/dl (9-20); Calcium 8.5 mg/dl (8.4-10.2); Carbon Dioxide 27 mmol/L (22-30); Chloride 102 mmol/L (98-107); Estimated Creatinine Clearance 51 ml/min; Glucose 108 mg/dl (70-99); Potassium 4.2 mmol/L (3.5-5.1); Sodium 136 mmol/L (135-145); eGFR 58.37
[2025-09-24] MEDS: KEPPRA 500 MG PO ×2 (08:16→20:05)
[2025-09-24] MEDS: ELIQUIS 5 MG PO ×2 (08:16→20:08)
[2025-09-24] MEDS: PACERONE 200 MG PO (08:17)
[2025-09-24] MEDS: TRUSOPT 2% OPHTHALMIC SOLUTION 1 DROP BOTH EYES ×2 (08:19→20:05)
--- NOTE | 2025-09-24 09:02 | CON.ID ---
Consultation
-
Date/Time Consultation Requested: 09/23/25 13:24
Date/Time Consultation Performed: 09/24/25 9:09
Requesting Provider: Dr Ruiz
Performing Provider: Dr Low
Reason for Consultation: 'FACIAL CELLULITIS'
Chief Complaint / Past History
Chief Complaint
facial swelling
History of Present Illness
Mr Gillespie is a 70 year old male with history of CHF EF 30-35% improved from 10%, AICD placement, s/p TAVR, bilateral knee replacements with recent hospitalization 04/05/25 with complicated MSSA bacteremia/possible endocarditis treated with 6
weeks of IV cefazolin through 05/22/25. He now presents for facial swelling in the left maxillary region. He reports a toothache in the same region that preceded the swelling by several days, he used OTC orajel with improvement in the pain. Then
he developed swelling which increased overnight and prompted him to seek treatment. Saw his dentist about 1 year ago. He reports no fevers, chills, sinus tenderness, rhinorrhea, dysphagia, or rash.
Since arrival here he has been afebrile, bp initially running in the 80-90/50-60 now 101/60, pulse 70s, wbc 10.7 then 11.9, hgb 13.6, plt 141, no left shift, na 135, cr 1.1, LFTs wnl, 09/[address]: severe cellulitis left maxilla and L
mandible, severe L maxiallary/ethmoid sinusitis, mild acute intraorbital cellulitis, severe c3/c4 spinal cord compression, currently on ceftriaxone and metronidazole, blood cultures x2 in progress no growth to date, Reports marked improvement in the
swelling since arrival. ID is consulted for assistance with management.
Past History
Additional Past Medical History:
Sepsis secondary to MSSA Bacteremia, PICC line placement. (APRIL 2025)
ICM/HFrEF - chronic with EF now 30-35% on echo 04/06/25 which is improved from previous EF 10%.
ICD - MDT BiV device was stable with normal function and followed in outpatient device clinic.
CAD - severe 3 vessel, stable w/o angina, continuing current medical therapy.
Impaired fasting glucose
Benign essential HTN
Generalized osteoarthritis of multiple sites
Presence of both artificial knee joints
Cardiomyopathy, ischemic
Mixed hyperlipidemia
Agatston CAC score
Persistent atrial fibrillation
History of cerebellar stroke
Severe aortic stenosis
T11 compression Fx.
Endocarditis
Thrombocytopenia
seizure disorder
Additional Past Surgical History:
as per hpi
ICD and bilateral knee replacements, TAVR
Allergy History:
Penicillins Allergy (Verified 09/23/25 09:22)
Unknown- TOLD YOUNG CHILD
Medications Reviewed: Yes
Social History
Alcohol: Occasional
Drug: None
Personal:
Family History
Family History: Not Pertinent
Review of Systems
Review of Systems
A 12 point ROS was completed and negative except as noted: Yes
EENT: Reports See HPI
Vital Signs
Temp Pulse Resp BP Pulse Ox
97.9 F 73 18 101/60 96
09/23/25 23:03 09/24/25 08:17 09/23/25 23:03 09/24/25 08:17 09/23/25 23:03
Physical Exam
Physical Exam
Constitutional: No Acute Distress and Chronically Ill
Head: Other (trace facial swelling in the left maxillary region; no swelling or tenderness over the left maxillary gums, 1 or 2 molars previously resected on the L)
Cardiovascular: Regular Rate and S1/S2; Negative Murmur or Rub
Pulmonary: Clear and Symmetric; Negative Wheezes, Rales or Rhonchi
Gastrointestinal: Soft, Non Tender, Non Distended and Normal Bowel Sounds
Skin: Warm and Dry; Negative Rash or Jaundice
Lab / Diagnostic Study Results
09/24/25 06:37
09/24/25 06:37
Abs Immat Gran (auto) 0.0 10^3/uL (0-0.05) 09/23/25 09:56
Absolute Neuts (auto) 8.1 10^3/uL (1.4-6.5) H 09/23/25 09:56
Absolute Lymphs (auto) 1.0 10^3/uL (1.2-3.4) L 09/23/25 09:56
Absolute Monos (auto) 1.6 10^3/uL (0.1-0.6) H 09/23/25 09:56
Absolute Basos (auto) 0.0 10^3/uL (0-0.2) 09/23/25 09:56
Immature Gran % 0.3 % (0-0.5) 09/23/25 09:56
Neutrophils % 75.1 % (42.2-75.2) 09/23/25 09:56
Lymphocytes % 9.2 % (20.5-51.1) L 09/23/25 09:56
Monocytes % 14.9 % (1.7-9.3) H 09/23/25 09:56
Eosinophils % 0.3 % (0-6) 09/23/25 09:56
Basophils % 0.2 % (0-2) 09/23/25 09:56
Microbiology Results
Micro:
09/23/25 13:25 Blood Culture - Pending
Blood/Venous
09/23/25 12:50 Blood Culture - Pending
Blood/Venous
Assessment / Plan
Facial Cellulitis
Sinusitis - maxillary and ethmoid
Leukocytosis - mild
Remote H/o Complicated MSSA Bacteremia
H/o reported allergy to Penicillin - unknown
KATE vs CKD
- blood cultures x2 are in progress
- follow renal function
- start cefdinir 300 mg PO BID and metronidazole 500 mg PO BID for another 12 days
- follow up with PCP
Care Review
Plan reviewed with: Physician (Dr Baig - disposition)
[2025-09-24] MEDS: ENTRESTO 24 MG/26 MG 1 TAB PO ×2 (09:30→20:08)
[2025-09-24] MEDS: TOPROL XL 12.5 MG PO ×2 (09:30→20:06)
[2025-09-24] MEDS: BUMEX 2 MG PO (09:30)
--- NOTE | 2025-09-24 13:43 | W.PN.HOSP.TC ---
Today's Communication/Plan
-
monitor BCx to 48 hours NGTD (09/25 afternoon) prior to DC
Assessment / Plan
Assessment / Plan
Assessment:
Left sided facial cellulitis
Left maxillary/ethmoid sinusitis
Acute intraorbital cellulitis
- no CT evidence of dental infection/abscess or ENT related abscess
- ID consulted; have transitioned patient to Cefdinir/Flagyl. Blood culture pending
- OP PCP and Dental f/u
Prior hx of sepsis/MSSA bacteremia
ICM/HFrEF - chronic with EF now 30-35% on echo 04/06/25 which is improved from previous EF 10%.
ICD - MDT BiV device was stable with normal function and followed in outpatient device clinic.
CAD - severe 3 vessel, stable w/o angina, continuing current medical therapy.
- continue Bumex/Farxiga/Entresto
Benign essential HTN
Generalized osteoarthritis of multiple sites
Mixed hyperlipidemia
- continue statin
Persistent atrial fibrillation
- continue Amiodarone/Eliquis/Toprol XL
History of cerebellar stroke
Severe aortic stenosis
T11 compression Fx.
seizure disorder
- continue Keppra
DVT ppx: Eliquis
Code: Full
Anticipated Discharge: Within 24 hours
Subjective/Interval History
-
Date of Service: September 24, 2025
patient reports facial swelling improving
denies any pain, no teeth pain, no vision changes
Objective Data
-
Labs:
Laboratory Results
09/24/25
06:37
WBC 11.9 H
Hgb 13.6
Hct 41.4
Plt Count 141
Sodium 136
Potassium 4.2
Chloride 102
Carbon Dioxide 27
BUN 42 H
Creatinine 1.3
Glucose 108 H
Calcium 8.5
Vital Signs:
Vital Signs
Temp Pulse Resp BP Pulse Ox
97.5 F 73 16 101/60 96
09/24/25 07:01 09/24/25 08:17 09/24/25 07:01 09/24/25 08:17 09/24/25 07:01
I&O
09/23/25 09/24/25 09/25/25
06:59 06:59 06:59
Intake Total 1280 / 1280
Balance 1280 / 1280
Physical Exam
-
General: No Apparent Distress
HEENT: Normocephalic, Atraumatic and Other (trace facial swelling in the left maxillary region)
Respiratory: Negative Wheezes
Cardiac: Regular Rhythm and S1/S2
GI: Soft
Genito-urinary: No Costovertebral Tender
Neuro: AO x 3
Psych: Calm
Data Reviewed
-
Total Time Spent with Patient (in minutes): 45
Labs: Labs Reviewed by me
--- NOTE | 2025-09-24 14:25 | CM ---
Met with pt. Pt on PO ABX.
CM consult_ Advance directives provided to patient
Paln: Home, no needs
[2025-09-24 15:05] VITALS: BP 96/57
[2025-09-24] MEDS: LIPITOR 40 MG PO (17:42)
[2025-09-24] MEDS: KCL 20 MEQ PO (17:42)
[2025-09-24] MEDS: FARXIGA 10 MG PO (17:42)
[2025-09-24] MEDS: MIRALAX 17 GRAMS PO (20:05)
[2025-09-24] MEDS: OMNICEF 300 MG PO (20:08)
[2025-09-24] MEDS: FLAGYL 500 MG PO (20:08)
[2025-09-24 23:51] VITALS: BP 92/56
[2025-09-25 06:00] VITALS: BMI 26.6
[2025-09-25 08:40] LABS: Hematocrit 43.8 % (39.0-52.0); Hemoglobin 14.0 g/dL (13.0-18.0); Mean Corp Hgb Conc. 32.0 g/dL (33.0-37.0); Mean Corpuscular Volume 84.9 fL (80.0-94.0); Platelet Count 175 10^3/uL (130-400); Red Cell Dist. Width 15.6 % (11.5-14.5)
[2025-09-25 08:59] LABS: Blood Urea Nitrogen 43 mg/dl (9-20); Calcium 8.3 mg/dl (8.4-10.2); Carbon Dioxide 27 mmol/L (22-30); Chloride 101 mmol/L (98-107); Estimated Creatinine Clearance 61 ml/min; Glucose 107 mg/dl (70-99); Potassium 4.5 mmol/L (3.5-5.1); Sodium 136 mmol/L (135-145); eGFR > 60.00
[2025-09-25 09:08] VITALS: BP 91/65
[2025-09-25] MEDS: TOPROL XL 12.5 MG PO (09:10)
[2025-09-25] MEDS: KEPPRA 500 MG PO (09:11)
[2025-09-25] MEDS: ELIQUIS 5 MG PO (09:11)
[2025-09-25] MEDS: ENTRESTO 24 MG/26 MG 1 TAB PO (09:11)
[2025-09-25] MEDS: PACERONE 200 MG PO (09:12)
[2025-09-25] MEDS: BUMEX 2 MG PO (09:12)
[2025-09-25] MEDS: OMNICEF 300 MG PO (09:12)
[2025-09-25] MEDS: FLAGYL 500 MG PO (09:12)
[2025-09-25] MEDS: TRUSOPT 2% OPHTHALMIC SOLUTION 1 DROP BOTH EYES (09:13)
[2025-09-25] MEDS: SENOKOT-S 1 TABLET PO (09:15)
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
--- NOTE | 2025-09-25 09:34 | W.DCSUMMARY ---
Discharge Summary
Discharge Data
Date of Admission: 09/23/25
Date of Discharge: 09/25/25
-
Pending Results: No
Hospital Course
70 y/o M, hx of prior MSSA sepsis/bacteremia, ICM s/p ICD, CAD, HTN, HLD, Persistent A. Fib, CVA, severe presented to ER on 09/23 with L facial/sinus swelling for a few days. A facial CT showed Left sided facial cellulitis, L maxillary/ethmoid
sinusitis along with intraorbital cellulitis. No evidence of abscess. ID evaluated and placed patient on Cefdinir/Flagyl x 14 days. Blood cultures were negative x 48 hours prior to discharge. Patient was instructed to follow up with PCP and also
keep up with routine dental care. He was discharged to home on 09/25/25.
Discharge Plan
-
Patient Disposition: Home (Routine Discharge)
Discharge Diagnosis/Procedures: L facial cellulitis, sinusitis and orbital cellulitis
Condition: Fair
Diet: Low Cholesterol
Activity: As tolerated
Bathing Restrictions: None
Referrals:
Greg Valentino DO [Family Provider, Internal Medicine] - in one week
Prescriptions:
New
cefdinir 300 mg Capsule
300 mg PO Q12 Qty: 22 0RF
Rx Instructions:
tolerated in hospital
metronidazole 500 mg Tablet
500 mg PO BID Qty: 22 0RF
Continued
Eliquis 5 mg Tablet
5 mg PO BID
bumetanide 2 mg Tablet
2 mg PO DAILY Qty: 30 1RF
potassium chloride 20 mEq tablet extended release
20 meq PO QPM
sacubitril-valsartan [Entresto] 24-26 mg tablet
1 tab PO BID
metoprolol succinate 25 mg tablet extended release 24 hr
12.5 mg PO BID
atorvastatin 40 mg Tablet
40 mg PO QPM
dorzolamide 2 % Drops
1 drp BOTH EYES BID
dapagliflozin propanediol [Farxiga] 10 mg Tablet
10 mg PO QPM
amiodarone 200 mg tablet
200 mg PO DAILY
levetiracetam 500 mg tablet
500 mg PO Q12H
Discharge Orders:
Discharge Patient (As Directed); Ordered 09/25/25
Ordered By: Zhanna Baig
Discharge Date and Time
Print Language: LATVIAN
--- NOTE | 2025-09-25 09:57 | W.PN.ID1 ---
Date of Service
Date of Service: September 25, 2025
Today's Communication
- c/w cefdinir 300 mg PO BID and metronidazole 500 mg PO BID for another 11 days
- follow up with PCP
Assessment / Plan
Facial Cellulitis
Sinusitis - maxillary and ethmoid
Leukocytosis - resolved
Remote H/o Complicated MSSA Bacteremia
H/o reported allergy to Penicillin - unknown
KATE vs CKD
- blood cultures x2 are in progress - NGTD
- follow renal function - improved today
- c/w cefdinir 300 mg PO BID and metronidazole 500 mg PO BID for another 11 days
- follow up with PCP
Chief Complaint
-: Other (facial cellulitis)
Subjective / Review of Systems
afebrile
bp soft
no events overnight
reports he notices resolved facial swelling
Vital Signs / Physical Exam
Vital Signs
Vital Signs
Temp Pulse Resp BP Pulse Ox
97.5 F 70 18 92/65 98
09/25/25 09:08 09/25/25 09:10 09/25/25 09:08 09/25/25 09:10 09/25/25 09:08
Physical Exam
Constitutional: No Acute Distress
Head: Other (slight erythema of the right maxillary area, no swelling of the face or eyelid)
Cardiovascular: Regular Rate and S1/S2; Negative Murmur or Rub
Pulmonary: Clear and Symmetric; Negative Wheezes or Rales
Gastrointestinal: Soft, Non Tender, Non Distended and Normal Bowel Sounds
Skin: Warm and Dry; Negative Rash or Jaundice
Neurological: Awake
Objective Data
Lab Data
Lab Results
09/25/25 07:20
09/25/25 07:20
Estimated Creat Clear 61 ml/min 09/25/25 07:20
Total Bilirubin 1.1 mg/dl (0.2-1.3) 09/23/25 09:56
AST 29 U/L (17-59) 09/23/25 09:56
ALT 24 U/L (0-50) 09/23/25 09:56
Alkaline Phosphatase 82 U/L (38-126) 09/23/25 09:56
Most recent labs reviewed.
Micro Results:
09/23/25 13:25 Blood Culture - Preliminary
Blood/Venous No Growth in 24 hours- Final report to follow
09/23/25 12:50 Blood Culture - Preliminary
Blood/Venous No Growth in 24 hours- Final report to follow
--- NOTE | 2025-09-25 10:16 | CM ---
Pt discharge home, no needs
[2025-09-25 17:21] VITALS: BP 108/65
== END 2025-09-25 18:21 | disposition home or self-care (01) | DRG 121 ==
LOC: 4 EAST ACU 13:31
PROVIDERS: Physician Assistant; ADMITTING PHYSICIAN Internal Medicine; ATTENDING PHYSICIAN Internal Medicine; CONSULT PHYSICIAN Internal Medicine Infectious Disease; EMERGENCY PHYSICIAN Emergency Medicine; FAMILY PHYSICIAN Internal Medicine
DX: H05.012 Cellulitis of left orbit (principal); G95.20 Unspecified cord compression; L03.211 Cellulitis of face; I50.22 Chronic systolic (congestive) heart failure; I48.19 Other persistent atrial fibrillation; J32.8 Other chronic sinusitis; M15.8 Other polyosteoarthritis; E78.2 Mixed hyperlipidemia; D72.829 Elevated white blood cell count, unspecified; I25.10 Atherosclerotic heart disease of native coronary artery without angina pectoris; I11.0 Hypertensive heart disease with heart failure; I25.5 Ischemic cardiomyopathy; Z96.653 Presence of artificial knee joint, bilateral; Z79.01 Long term (current) use of anticoagulants; Z86.19 Personal history of other infectious and parasitic diseases; Z86.73 Personal history of transient ischemic attack (TIA), and cerebral infarction without residual deficits; Z95.2 Presence of prosthetic heart valve; Z95.810 Presence of automatic (implantable) cardiac defibrillator
CPT/HCPCS: 70487; 80048; 80053; 85025; 85027; 87040; 96374; 99285; Q9967